=== PATIENT | male | born 1965 | race Caucasian/White ===

== ENCOUNTER 2020-02-06 11:32 | Outpatient (REF) | payer BC, SELFPAY | END 2020-02-06 11:33 | disposition home or self-care (01) | LOC: HO.LAB 11:32 | PROVIDERS: Visit Provider Nurse Practitioner Family | DX: Z20.828 Contact with and (suspected) exposure to other viral communicable diseases (principal) | CPT/HCPCS: U0003 ==

== ENCOUNTER 2020-12-28 10:12 | Outpatient (REF) | payer OTHER, SELFPAY ==
[2020-12-28 11:24] LABS: MANUAL DIFF FLAG NO
[2020-12-28 11:32] LABS: Basophils Percent Auto 0.1 % (0-2); Eosinophils Percent Auto 0.4 % (0-4); Hematocrit 44.9 % (42.0-52.0); Hemoglobin 14.9 g/dl (14.0-18.0); Imm Gran Abs Auto 0.03 X10*3/uL (0.00-0.03); Imm Gran Pct Auto 0.4 % (0.0-0.4); Lymphocytes Absolute Auto 1.7 X10*3/uL (1.2-4.9); Lymphocytes Percent Auto 20.2 % (20-40); Mean Corpuscular HGB Conc 33.2 g/dl (31.0-36.0); Mean Corpuscular Hemoglobin 28.8 pg (27.0-33.0); Mean Corpuscular Volume 86.7 fL (80.0-98.0); Mean Platelet Volume 10.4 fL (9.4-12.4); Monocytes Absolute Auto 0.5 X10*3/uL (0.1-1.2); Monocytes Percent Auto 6.5 % (2-11); Neutrophils Percent Auto 72.4 % (45-73); Platelet Count 343 X10*3/uL (160-400); Red Blood Count 5.18 X10*6/uL (4.60-5.80); Red Cell Distribution Width 12.4 % (11.0-16.0); White Blood Count 8.3 X10*3/uL (4.8-10.8)
[2020-12-28 11:52] LABS: Anion Gap 14 (12-20); Blood Urea Nitrogen 18 mg/dL (9-16); Calcium 9.5 mg/dL (8.4-10.2); Carbon Dioxide 24 mmol/L (22-29); Chloride 106 mmol/L (96-108); Cholesterol 163 mg/dL; Estimated Glomerular Filt Rate > 60; Glucose Fasting 125 mg/dL (60-99); HDL Cholesterol 46 mg/dL; LDL Cholesterol Calculated 105 mg/dl; Potassium 4.3 mmol/L (3.3-5.1); Sodium 140 mmol/L (135-145); Triglycerides 63 mg/dL
== END 2020-12-28 10:13 | disposition home or self-care (01) ==
LOC: HO.HMGCLDS 10:12
PROVIDERS: PCP Internal Medicine; Visit Provider Nurse Practitioner Acute Care
DX: Z00.00 Encounter for general adult medical examination without abnormal findings (principal)
CPT/HCPCS: 36415; 80048; 80061; 85025

== ENCOUNTER 2021-03-22 09:05 | Outpatient (REF) | payer OTHER, SELFPAY ==
[2021-03-22 11:17] LABS: Appearance Urine CLEAR; Color Urine YELLOW; Glucose Urine UA NEG (NEG); Leukocyte Esterase Urine NEG (NEG); Nitrite Urine NEG (NEG); PH 7.5 (5.0-8.0); Specific Gravity - Urine 1.015 (1.005-1.025); Urine Blood NEG (NEG); Urine Ketones NEG (NEG); Urine Protein NEG (NEG-TRACE)
[2021-03-22 11:23] LABS: Alanine Aminotransferase 23 U/L (0-40); Albumin Level 4.4 g/dL (3.5-5.0); Alkaline Phosphatase 94 U/L (39-117); Anion Gap 11 (12-20); Aspartate Amino Transferase 22 U/L (5-37); Bilirubin Total 1.1 mg/dL (0.0-1.0); Blood Urea Nitrogen 13 mg/dL (9-16); Calcium 9.5 mg/dL (8.4-10.2); Carbon Dioxide 29 mmol/L (22-29); Chloride 105 mmol/L (96-108); Cholesterol 166 mg/dL; Estimated Glomerular Filt Rate > 60; Glucose Fasting 91 mg/dL (60-99); HDL Cholesterol 43 mg/dL; LDL Cholesterol Calculated 108 mg/dl; Potassium 4.3 mmol/L (3.3-5.1); Sodium 141 mmol/L (135-145); Total Protein 7.1 g/dL (6.5-8.0); Triglycerides 76 mg/dL
[2021-03-22 11:25] LABS: Estimated Average Glucose 117 mg/dL; Hemoglobin A1c % 5.7 %
[2021-03-22 11:46] LABS: Prostate Specific Antigen 1.14 ng/mL (<0.05-4.0); TSH reflex Free T4 1.29 uIU/mL (0.32-4.0); Vitamin D 25-OH Total 22.9 ng/mL (>30)
== END 2021-03-22 09:06 | disposition home or self-care (01) ==
LOC: HO.HMGCLDS 09:05
PROVIDERS: Visit Provider Internal Medicine
DX: Z00.00 Encounter for general adult medical examination without abnormal findings (principal); R73.01 Impaired fasting glucose; N40.0 Benign prostatic hyperplasia without lower urinary tract symptoms; E78.00 Pure hypercholesterolemia, unspecified; E55.9 Vitamin D deficiency, unspecified; Z12.5 Encounter for screening for malignant neoplasm of prostate
CPT/HCPCS: 36415; 80053; 80061; 81003; 82306; 83036; 84153; 84443

== ENCOUNTER → 2021-04-15 07:55 | Outpatient (BNVA) | payer SELFPAY | PROVIDERS: PCP Internal Medicine; Visit Provider Internal Medicine | DX: Z02.79 Encounter for issue of other medical certificate (principal) ==

== ENCOUNTER 2021-06-12 21:07 | Emergency (ER) | payer OTHER, SELFPAY ==
[2021-06-12 23:11] VITALS: BP 156/78; PULSE 67; RESP 16; TEMP 37.1; O2SAT 99; BMI 25.7
--- NOTE | 2021-06-12 23:22 | ED.DENTAL ---
HPI - Dental/Oral General Chief complaint: Dental/Oral Stated complaint: infected root canal Source: patient Mode of arrival: ambulatory Limitations: no limitations History of Present Illness HPI Narrative: 56-year-old male presents with right upper molar pain and swelling. Stated that he has an infected root canal, is on Flagyl and clindamycin. Was referred to the emergency department by his dentist Complaint: tooth pain Location: Tooth # Teeth map: 1. Onset (ago): day(s) (2) Duration: constant Severity: moderate Severity scale (1-10): 7 Relieving factors: nothing Exacerbating factors: chewing, cold, heat and drinking fluids Context: history of dental caries Associated symptoms: gum swelling Treatment prior to arrival: topical analgesic Related Data Previous Rx's Medication Instructions Recorded lisinopril 2.5 mg tablet 2.5 mg PO DAILY #90 tab 06/02/21 omeprazole 40 mg capsule,delayed 40 mg PO DAILY #90 cap 06/02/21 release rosuvastatin 10 mg tablet 10 mg PO DAILY #90 tab 06/02/21 amoxicillin 875 mg-potassium 1 tab PO Q12H 10 Days #20 tab 06/13/21 clavulanate 125 mg tablet Allergies Allergy/AdvReac Type Severity Reaction Status Date / Time Penicillins [PCN] Allergy Mild RASH Verified 03/25/21 16:25 penicillin V Allergy Unknown rash Verified 03/25/21 16:25 Review of Systems Review of Systems: Constitutional: No Fever, No Chills ENT/Mouth: No swallowing difficulty, no change in voice, positive dental pain, positive jaw pain, positive facial swelling Eyes: No Eye Pain, No Swelling Cardiovascular: No Chest Pain, No SOB Respiratory: No Cough, No Sputum, No Wheezing, No Smoke Exposure, No Dyspnea Gastrointestinal: No Nausea, No Vomiting, No Diarrhea Genitourinary: No Dysuria Musculoskeletal: No Myalgias Skin: No rash Neuro: No Weakness, No Numbness, No Headache Yes all other systems are reviewed and are negative PMFSH Past Medical History Attestation statement: The following information was validated with the patient. 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 Father No problems noted. Social History Social History Housing: House Alcohol intake: current Alcohol intake frequency: holidays/special occasions only Patient Tobacco Use Status: Never used Tobacco Second Hand Smoke Exposure: Yes Advance Directives: No service: No Current occupational status: employed Physical Exam Vital Signs: Vital Signs: Last Vital Signs Temp 98.7 F 06/12/21 23:11 Pulse 67 06/12/21 23:11 Resp 16 06/12/21 23:11 BP 156/78 H 06/12/21 23:11 Pulse Ox 99 06/12/21 23:11 BMI result Body Mass Index 25.7 Appearance: Alert. Oriented X3. No acute distress. Eyes: Pupils equal, round and reactive to light. ENT: Pharynx normal. Right upper jaw swelling and tenderness. Gingivitis around tooth 2 and 3 Neck: Normal inspection. Neck supple. CVS: Normal heart rate and rhythm. Pulses normal. Respiratory: No respiratory distress. Breath sounds normal. Abdomen: Soft and nontender. Skin: Skin warm and dry. Normal skin color. Normal skin turgor. Extremities: No lower extremity edema. Gait well balanced well coordinated. Neuro: No motor deficit. No sensory deficit. Cranial nerves 2-12 intact Course Course Course Narrative: 56-year-old male presents for tooth pain with suspected root canal and affection. Was seen by his dentist and given Flagyl and clindamycin. States that the swelling and pain got better and then over the past 2 days and can increase. Does report some intermittent episodes of mucousy diarrhea. I advised to stop the clindamycin, will get stool sample for C difficile. Patient states that he does not have a penicillin allergy. I will change his medications to amoxicillin I will give Toradol for pain management 01:00 C diff study requires time to grow. We will call him with his result. Patient understands any must follow-up with his dentist verbalized understanding of and agrees to plan of care to discharge home. Verbalized understanding of signs and symptoms indicating need for emergent intervention MDM - Dental/Oral Differential Diagnosis Differential diagnosis: Likely gingival abscess, dental caries, toothache and dental abscess Medical Records Attestation: I reviewed the patient's medical records. Discharge Plan Discharge Clinical Impression: Toothache Patient Disposition: Home, Self-Care Instructions: Toothache (ED) Additional Instructions: You were evaluated for dental pain and swelling. Please stop taking the clindamycin because you have diarrhea. Your C difficile test is pending. Please take Augmentin 875 mg twice a day for the next 10 days. You must follow up with the dentist this week Take ibuprofen 600 mg every 6 hours as needed for pain management Thank you for choosing this emergency department for evaluation. Please follow-up with primary care physician as needed. Return to the emergency department for any new, concerning, or worsening symptoms. Prescriptions: New amoxicillin-pot clavulanate 875-125 mg tablet 1 tab PO Q12H 10 Days Qty: 20 0RF No Action lisinopril 2.5 mg tablet 2.5 mg PO DAILY Qty: 90 3RF rosuvastatin 10 mg tablet 10 mg PO DAILY Qty: 90 3RF omeprazole 40 mg capsule,delayed release(DR/EC) 40 mg PO DAILY Qty: 90 3RF Stand Alone Forms: [facility] Emergency Numbers
[2021-06-13] MEDS: Ketorolac Tromethamine 60 MG/2 ML VIAL IM (00:11)
[2021-06-13] MEDS: Amoxicillin/Potassium Clav 875 MG TABLET PO (00:11)
[2021-06-13 01:29] LABS: CDiff Gene PCR NEGATIVE (Negative)
== END 2021-06-13 01:23 | disposition home or self-care (01) ==
PROVIDERS: Nurse Practitioner Family; Emergency Provider Internal Medicine
DX: K08.89 Other specified disorders of teeth and supporting structures (principal); I10 Essential (primary) hypertension
CPT/HCPCS: 36415; 87493; 96372; 99284; J1885

== ENCOUNTER 2022-02-22 15:50 | Observation (INO) | payer BC, SELFPAY ==
--- NOTE | 2022-02-22 | ECG_ITS ---
Test Reason : CHEST PAIN Blood Pressure : / mmHG Vent. Rate : 056 BPM Atrial Rate : 056 BPM P-R Int : 150 ms QRS Dur : 086 ms QT Int : 406 ms P-R-T Axes : 022 037 035 degrees QTc Int : 391 ms Sinus bradycardia Otherwise normal ECG No previous ECGs available Referred By: Generic ED Physician Electronically Signed By:Benton Burns
--- NOTE | ~2022-02-22 | XR_ITS ---
EXAMINATION: XR CHEST CLINICAL INFORMATION: Chest pain COMPARISON: None TECHNIQUE: Frontal view of the chest was obtained. FINDINGS: Normal appearance of the cardiomediastinal structures. No effusions or pneumothoraces. No focal pulmonary consolidation. Normal pattern of pulmonary vasculature. XR/XR chest 1V IMPRESSION: No acute cardiopulmonary abnormalities.
[2022-02-22 16:15] VITALS: BP 134/78; BP 160/100; PULSE 56; PULSE 60; RESP 18; TEMP 37.1; O2SAT 95; O2SAT 98; BMI 25.7
[2022-02-22 16:27] LABS: MANUAL DIFF FLAG NO
[2022-02-22 16:28] LABS: Basophils Percent Auto 0.2 % (0-2); Eosinophils Absolute Auto 0.1 X10*3/uL (0.0-0.4); Eosinophils Percent Auto 1.1 % (0-4); Hematocrit 40.8 % (42.0-52.0); Hemoglobin 13.6 g/dl (14.0-18.0); Imm Gran Abs Auto 0.03 X10*3/uL (0.00-0.03); Imm Gran Pct Auto 0.2 % (0.0-0.4); Lymphocytes Absolute Auto 2.2 X10*3/uL (1.2-4.9); Lymphocytes Percent Auto 18.3 % (20-40); Mean Corpuscular HGB Conc 33.3 g/dl (31.0-36.0); Mean Corpuscular Hemoglobin 29.3 pg (27.0-33.0); Mean Corpuscular Volume 87.9 fL (80.0-98.0); Mean Platelet Volume 9.9 fL (9.4-12.4); Monocytes Absolute Auto 0.9 X10*3/uL (0.1-1.2); Monocytes Percent Auto 7.5 % (2-11); Neutrophils Absolute Auto 8.9 x10*3/uL (2.0-8.3); Neutrophils Percent Auto 72.7 % (45-73); Platelet Count 273 X10*3/uL (160-400); Red Blood Count 4.64 X10*6/uL (4.60-5.80); Red Cell Distribution Width 12.1 % (11.0-16.0); White Blood Count 12.2 X10*3/uL (4.8-10.8)
--- NOTE | 2022-02-22 16:30 | ED_ITS ---
HPI - Chest Pain General Chief Complaint: Chest Pain Stated Complaint: chest pressure Time Seen by Provider: 02/22/22 16:30 Source: patient Mode of arrival: EMS Limitations: no limitations History of Present Illness HPI narrative: Patient has hypertension, hyperlipidemia no known coronary artery disease while at rest at 13:30 notice left-sided chest pressure like feeling radiating to the left shoulder initially was mild felt like a gas within an hour or so it became severe when he called the EMS EMS gave aspirin and nitroglycerin and patient felt slightly better but still having the heaviness and pressure feeling on arrival patient did have cold sweats and nausea at the time of the pain. Initial EKG by EMS showed slight J-point elevation in lead 3 aVL and AVF. Patient never had any coronary artery disease never had any stress tests or echo in the past patient does not smoke no family history of coronary artery disease patient took Prilosec at home prior to arrival Related Data Previous Rx's Medication Instructions Recorded lisinopril 2.5 mg tablet 2.5 mg PO DAILY #90 tabs 10/17/21 rosuvastatin 10 mg tablet 10 mg PO DAILY #90 tabs 10/17/21 omeprazole 40 mg capsule,delayed 40 mg PO DAILY #90 caps 01/24/22 release Allergies Allergy/AdvReac Type Severity Reaction Status Date / Time Penicillins [PCN] Allergy Mild RASH Verified 02/22/22 16:17 penicillin V Allergy Unknown rash Verified 02/22/22 16:17 Review of Systems Review of Systems: Yes all other systems are reviewed and are negative [facility] Past Medical History Medical History Anxiety 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 Father No problems noted. Social History Social History Housing: House Alcohol intake: current Alcohol intake frequency: holidays/special occasions only Patient Tobacco Use Status: Never used Tobacco e-Cigarette/Vaping Use: Never Used Second Hand Smoke Exposure: Yes Advance Directives: No Advance Directives Information Provided: Yes service: No Current occupational status: employed Current occupational exposures/hazards: No Cognitive needs: No Hearing needs: No Vision needs: Yes Physical Exam Vital Signs: Vital Signs: Last Vital Signs Temp 98.8 F 02/22/22 21:28 Pulse 92 02/22/22 21:28 Resp 20 02/22/22 21:28 BP 126/77 02/22/22 21:28 Pulse Ox 96 02/22/22 21:28 O2 Del Method 02/22/22 21:28 BMI result Body Mass Index 25.7 Appearance: Alert. Oriented X3. No acute distress. Eyes: PERRLA, No Nystagmus ENT: Pharynx normal. Oral Mucosa moist Neck: Normal inspection. Neck supple. CVS: Normal heart rate and rhythm. Pulses normal. Respiratory: No respiratory distress. Equal air entry bilateral, no wheezing/rales/rhonchi Abdomen: Soft and nontender. Bowel sounds are present, no mass palpable, no CVA tenderness Skin: Skin warm and dry. Normal skin color. Normal skin turgor. Extremities: No lower extremity edema. No calf tenderness Neuro: Oriented X 3. No motor deficit. No sensory deficit.No cerebellar signs , cranial nerves II-XII intact Medications Administered Generic Name Dose Route Start Last Admin Trade Name Freq PRN Reason Stop Dose Admin Enoxaparin Sodium 40 mg 02/22/22 22:00 02/22/22 22:02 Enoxaparin Sodium 40 Mg/0.4 Ml Syringe SUBCUT 40 mg Q24H DEEPTI Administration Discontinued Medications Generic Name Dose Route Start Last Admin Trade Name Freq PRN Reason Stop Dose Admin Heparin Sodium (Porcine) 5,000 unit 02/22/22 17:01 02/22/22 17:15 Heparin Sodium,Porcine 5,000 Unit/Ml Vial IVPUSH 02/22/22 17:02 5,000 unit ONCE ONE Administration Ketorolac Tromethamine 30 mg 02/22/22 19:50 02/22/22 19:57 Ketorolac Tromethamine 30 Mg/Ml Vial IVPUSH 02/22/22 19:51 30 mg ONCE ONE Administration Lorazepam 0.5 mg 02/22/22 17:04 02/22/22 17:14 Lorazepam 0.5 Mg Tablet PO 02/22/22 17:05 0.5 mg ONCE ONE Administration Nitroglycerin 0.5 inch 02/22/22 17:01 02/22/22 17:16 Nitroglycerin 2 % Oint 1 Gm Packet TRANSDERMA 02/22/22 17:02 0.5 inch ONCE ONE Administration Medical Decision Making Medical Decision Making [facility] Narrative: Patient has hypertension, hyperlipidemia, anxiety, GERD came with chest pain started at 13:30 patient had 2 sets of high sensitive troponin-2 EKG is normal without any ischemic changes patient was feeling anxious on arrival was given Ativan, is feeling better now chest pain continued for few hours. At this time patient denies any chest pain , case discussed with Dr. Mcdaniels advised for admission plan for 2D echo and a stress test in the a.m. Differential Diagnosis Differential Diagnoses: The differential diagnosis associated with the presentation includes ACS/STEMI/pericarditis/PE/GERD Lab Data [facility] Lab Attestation statement: I reviewed the patient's lab results. 02/22/22 16:23 02/22/22 16:23 Labs: Lab Results 02/22/22 02/22/22 02/22/22 Range/Units 16:23 16:23 16:23 WBC 12.2 H (4.8-10.8) X10*3/uL RBC 4.64 (4.60-5.80) X10*6/uL Hgb 13.6 L (14.0-18.0) g/dl Hct 40.8 L (42.0-52.0) % MCV 87.9 (80.0-98.0) fL MCH 29.3 (27.0-33.0) pg MCHC 33.3 (31.0-36.0) g/dl RDW 12.1 (11.0-16.0) % Plt Count 273 (160-400) X10*3/uL MPV 9.9 (9.4-12.4) fL Immature Gran % (Auto) 0.2 (0.0-0.4) % Neut % (Auto) 72.7 (45-73) % Lymph % (Auto) 18.3 L (20-40) % [place] % (Auto) 7.5 (2-11) % Eos % (Auto) 1.1 (0-4) % Baso % (Auto) 0.2 (0-2) % Lymph # (Auto) 2.2 (1.2-4.9) X10*3/uL [place] # (Auto) 0.9 (0.1-1.2) X10*3/uL Eos # (Auto) 0.1 (0.0-0.4) X10*3/uL Baso # (Auto) 0.0 (0.0-0.2) X10*3/uL Abs Immat Gran (auto) 0.03 (0.00-0.03) X10*3/uL Absolute Neuts (auto) 8.9 H (2.0-8.3) x10*3/uL Absolute Nucleated RBC 0.000 (0.0-0.012) X10*3/uL Nucleated RBC % (auto) 0.0 (0.0-0.2) /100WBC Sodium 141 (135-145) mmol/L Potassium 4.2 (3.3-5.1) mmol/L Chloride 106 (96-108) mmol/L Carbon Dioxide 27 (22-29) mmol/L Anion Gap 12 (12-20) BUN 19 H (9-16) mg/dL Creatinine 0.87 (0.5-1.4) mg/dL Estim Creat Clear Calc 78.4 Estimated GFR > 60 Random Glucose 98 (60-115) mg/dL Calcium 9.7 (8.4-10.2) mg/dL Total Bilirubin 0.7 (0.0-1.0) mg/dL AST 22 (5-37) U/L ALT 19 (0-40) U/L Alkaline Phosphatase 82 (39-117) U/L Troponin I High Sens < 3.5 (<3.5-35.0) ng/L C-Reactive Protein 0.15 (< or = 0.50) mg/dL Total Protein 7.1 (6.5-8.0) g/dL Albumin 4.6 (3.5-5.0) g/dL Influenza Type A (PCR) (Negative) Influenza Type B (PCR) (Negative) RSV RNA Qual (PCR) (Negative) SARS-CoV-2 RNA (RT-PCR) (Negative) 02/22/22 02/22/22 Range/Units 18:30 18:45 WBC (4.8-10.8) X10*3/uL RBC (4.60-5.80) X10*6/uL Hgb (14.0-18.0) g/dl Hct (42.0-52.0) % MCV (80.0-98.0) fL MCH (27.0-33.0) pg MCHC (31.0-36.0) g/dl RDW (11.0-16.0) % Plt Count (160-400) X10*3/uL MPV (9.4-12.4) fL Immature Gran % (Auto) (0.0-0.4) % Neut % (Auto) (45-73) % Lymph % (Auto) (20-40) % [place] % (Auto) (2-11) % Eos % (Auto) (0-4) % Baso % (Auto) (0-2) % Lymph # (Auto) (1.2-4.9) X10*3/uL [place] # (Auto) (0.1-1.2) X10*3/uL Eos # (Auto) (0.0-0.4) X10*3/uL Baso # (Auto) (0.0-0.2) X10*3/uL Abs Immat Gran (auto) (0.00-0.03) X10*3/uL Absolute Neuts (auto) (2.0-8.3) x10*3/uL Absolute Nucleated RBC (0.0-0.012) X10*3/uL Nucleated RBC % (auto) (0.0-0.2) /100WBC Sodium (135-145) mmol/L Potassium (3.3-5.1) mmol/L Chloride (96-108) mmol/L Carbon Dioxide (22-29) mmol/L Anion Gap (12-20) BUN (9-16) mg/dL Creatinine (0.5-1.4) mg/dL Estim Creat Clear Calc Estimated GFR Random Glucose (60-115) mg/dL Calcium (8.4-10.2) mg/dL Total Bilirubin (0.0-1.0) mg/dL AST (5-37) U/L ALT (0-40) U/L Alkaline Phosphatase (39-117) U/L Troponin I High Sens < 3.5 (<3.5-35.0) ng/L C-Reactive Protein (< or = 0.50) mg/dL Total Protein (6.5-8.0) g/dL Albumin (3.5-5.0) g/dL Influenza Type A (PCR) NEGATIVE (Negative) Influenza Type B (PCR) NEGATIVE (Negative) RSV RNA Qual (PCR) NEGATIVE (Negative) SARS-CoV-2 RNA (RT-PCR) NEGATIVE (Negative) Independent Interpretation I performed an independent interpretation of an: EKG Interpretation: Sinus bradycardia with heart rate 56 beats per minute J-point elevation 1 ,II and lead AVF. Normal axis normal intervals Discharge Plan Discharge Clinical Impression: ACS (acute coronary syndrome) Patient Disposition: Admitted As Inpatient
[2022-02-22 16:48] LABS: Alanine Aminotransferase 19 U/L (0-40); Albumin Level 4.6 g/dL (3.5-5.0); Alkaline Phosphatase 82 U/L (39-117); Anion Gap 12 (12-20); Aspartate Amino Transferase 22 U/L (5-37); Bilirubin Total 0.7 mg/dL (0.0-1.0); Blood Urea Nitrogen 19 mg/dL (9-16); Calcium 9.7 mg/dL (8.4-10.2); Carbon Dioxide 27 mmol/L (22-29); Chloride 106 mmol/L (96-108); Creatinine Clr Calc Pharmacy 78.4; Estimated Glomerular Filt Rate > 60; Glucose Random 98 mg/dL (60-115); Potassium 4.2 mmol/L (3.3-5.1); Sodium 141 mmol/L (135-145); Total Protein 7.1 g/dL (6.5-8.0)
[2022-02-22 17:03] LABS: Troponin-I High Sensitivity < 3.5 ng/L (<3.5-35.0)
[2022-02-22] MEDS: LORazepam 0.5 MG TABLET PO (17:14)
[2022-02-22] MEDS: Heparin Sodium,Porcine 5,000 UNIT/ML VIAL 5000 UNIT IVPUSH (17:15)
[2022-02-22] MEDS: Nitroglycerin 2 % Oint 1 GM Packet 0.5 INCH TRANSDERMA (17:16)
[2022-02-22 18:43] VITALS: BP 137/92; PULSE 78; RESP 20; O2SAT 98
[2022-02-22 19:08] LABS: Troponin-I High Sensitivity < 3.5 ng/L (<3.5-35.0)
--- NOTE | 2022-02-22 19:08 | ECG_ITS ---
Test Reason : REPEAT Blood Pressure : / mmHG Vent. Rate : 087 BPM Atrial Rate : 087 BPM P-R Int : 164 ms QRS Dur : 076 ms QT Int : 344 ms P-R-T Axes : 037 032 029 degrees QTc Int : 413 ms Normal sinus rhythm ST elevation lateral leads with CT depression ?early pericarditis When compared with ECG of 22-FEB-2022 16:26, Vent. rate has increased BY 31 BPM Referred By: Uri Stoner Electronically Signed By:Benton Burns
--- NOTE | 2022-02-22 19:12 | PC.NURSE ---
Assumed care of patient.
[2022-02-22 19:29] LABS: Influenza A PCR NEGATIVE (Negative); Influenza B PCR NEGATIVE (Negative); Resp Syncy Virus RNA Qual PCR NEGATIVE (Negative); SARS COV2 PCR INHOUSE NEGATIVE (Negative)
[2022-02-22] MEDS: Ketorolac Tromethamine 30 MG/ML VIAL IVPUSH (19:57)
--- NOTE | 2022-02-22 20:36 | PC.NURSE ---
pt ambulated safely/independently w/o assistance to restroom
[2022-02-22 20:38] VITALS: O2SAT 98
--- NOTE | 2022-02-22 20:41 | P.HPHOSP_ITS ---
History of Present Illness Date of Service: 02/22/22 Chief Complaint: Chest Pain This is a 56-year-old male with pertinent history of essential hypertension, mixed hyperlipidemia, gastroesophageal reflux disease presents to the emergency department for evaluation of chest pain. Patient states while he was cleaning his house around 13:30 he had sudden onset of substernal chest discomfort. It was constant and radiated to the left shoulder. It was associated with sweating and dyspnea. Patient initially thought it was gas pain but it did not relieve and intensified over time. Patient called EMS around 15:00 due to persistent chest pressure. States he was the worst pain he ever experienced. 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 No early family history of [place] . Patient states the chest discomfort mildly relieved with sublingual nitroglycerin. Did not relieve with rest . Patient denies fever, chills, cough, nausea, vomiting, abdominal pain, changes in urinary or bowel habits. In the emergency department, process development manager was consulted who requested admission Review of Systems Constitutional: Constitutional: Reports no additional constitutional compla ints Cardiovascular: Cardiovascular: Reports chest pain Respiratory: Respiratory: Reports no additional respiratory complaints Gastrointestinal: Gastrointestinal: Reports no additional gastrointestinal complaints Genitourinary: Genitourinary: Reports no additional male genitourinary complaints Musculoskeletal: Musculoskeletal: Reports no additional musculoskeletal complaints [facility] Medical History Anxiety 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 Father No problems noted. Surgical History No pertinent past surgical history Social History Housing: House Alcohol intake: current Alcohol intake frequency: holidays/special occasions only Patient Tobacco Use Status: Never used Tobacco e-Cigarette/Vaping Use: Never Used Second Hand Smoke Exposure: Yes Advance Directives: No Advance Directives Information Provided: Yes service: No Current occupational status: employed Current occupational exposures/hazards: No Cognitive needs: No Hearing needs: No Vision needs: Yes Meds Allergies Allergy/AdvReac Type Severity Reaction Status Date / Time Penicillins [PCN] Allergy Mild RASH Verified 02/22/22 16:17 penicillin V Allergy Unknown rash Verified 02/22/22 16:17 Active Medications: Current Medications Acetaminophen (Acetaminophen 325 Mg Tablet) 650 mg PO Q6H PRN PRN Reason: Pain, Mild (Pain Scale 1-3) Enoxaparin Sodium (Enoxaparin Sodium 40 Mg/0.4 Ml Syringe) 40 mg SUBCUT Q24H DEEPTI Nitroglycerin (Nitroglycerin 0.4 Mg Tab.Subl) 0.4 mg SUBLINGUAL Q5MX3 PRN PRN Reason: Chest Pain Pharmacy Consult (Consult Rx Perform Med Rec) 1 each MISCELLANE ONCE PRN PRN Reason: Consult order Sodium Chloride (0.9 % Sodium Chloride Flush 3 Ml Syringe) 3 ml IVFLUSH QSHIFT DEEPTI Physical Exam Vital Signs and Narrative: Vital Signs: Last Vital Signs Temp 98.8 F 02/22/22 16:15 Pulse 78 02/22/22 18:43 Resp 20 02/22/22 18:43 BP 137/92 H 02/22/22 18:43 Pulse Ox 98 02/22/22 18:43 O2 Del Method 02/22/22 18:43 BMI result Body Mass Index 25.7 Middle-aged male lying in bed in no distress Neck supple, no JVD Regular rate and rhythm, S1-S2 heard Regular breath sounds bilaterally, no wheezing or crackles appreciated Abdomen soft nontender, no guarding, no rigidity Patient is awake, alert and oriented to self, place, time and person ; no focal motor deficit Psych: Normal mood No pedal edema Results Labs 02/22/22 16:23 02/22/22 16:23 Labs: Laboratory Results - last 24 hr 02/22/22 02/22/22 02/22/22 16:23 16:23 16:23 MCV 87.9 MCH 29.3 MCHC 33.3 RDW 12.1 Plt Count 273 MPV 9.9 Immature Gran % (Auto) 0.2 Neut % (Auto) 72.7 Lymph % (Auto) 18.3 L [place] % (Auto) 7.5 Eos % (Auto) 1.1 Baso % (Auto) 0.2 Lymph # (Auto) 2.2 [place] # (Auto) 0.9 Eos # (Auto) 0.1 Baso # (Auto) 0.0 Abs Immat Gran (auto) 0.03 Absolute Neuts (auto) 8.9 H Absolute Nucleated RBC 0.000 Nucleated RBC % (auto) 0.0 Anion Gap 12 Estim Creat Clear Calc 78.4 Estimated GFR > 60 Random Glucose 98 Calcium 9.7 Total Bilirubin 0.7 AST 22 ALT 19 Alkaline Phosphatase 82 Troponin I High Sens < 3.5 Total Protein 7.1 Albumin 4.6 Influenza Type A (PCR) Influenza Type B (PCR) RSV RNA Qual (PCR) SARS-CoV-2 RNA (RT-PCR) 02/22/22 02/22/22 18:30 18:45 MCV MCH MCHC RDW Plt Count MPV Immature Gran % (Auto) Neut % (Auto) Lymph % (Auto) [place] % (Auto) Eos % (Auto) Baso % (Auto) Lymph # (Auto) [place] # (Auto) Eos # (Auto) Baso # (Auto) Abs Immat Gran (auto) Absolute Neuts (auto) Absolute Nucleated RBC Nucleated RBC % (auto) Anion Gap Estim Creat Clear Calc Estimated GFR Random Glucose Calcium Total Bilirubin AST ALT Alkaline Phosphatase Troponin I High Sens < 3.5 Total Protein Albumin Influenza Type A (PCR) NEGATIVE Influenza Type B (PCR) NEGATIVE RSV RNA Qual (PCR) NEGATIVE SARS-CoV-2 RNA (RT-PCR) NEGATIVE Imaging Radiologist's Impressions: Impressions Chest X-Ray 02/22/22 16:48 IMPRESSION: No acute cardiopulmonary abnormalities. Assessment and Plan (1) Chest pain: Status: Acute Plan This is a 56-year-old male with pertinent history of essential hypertension, mixed hyperlipidemia, gastroesophageal reflux disease presents to the emergency department for evaluation of chest pain. #. Atypical chest pain: Will admit with retirement consultant. Cardiology consulted from the ER, appreciate assistance. Obtain echo. Repeat troponin. #. Essential HTN: On lisinopril #. HLD: on statin #. GERD: omeprazole DVT Prophylaxis: Lovenox 40mg daily Full code Diet: Cardiac diet Time Spent With Patient Time: Total time managing care of this patient today ____ minutes. Quality Stroke Does the patient have a stroke diagnosis?: No VTE Prior VTE?: No VTE Risk Level:: Medical - low VTE Device Contraindication: Treatment Not Indicated VTE Drug Contraindication: N/A - Med Ordered
[2022-02-22 21:28] VITALS: BP 126/77; PULSE 92; RESP 20; TEMP 37.1; O2SAT 96
[2022-02-22] MEDS: Enoxaparin Sodium 40 MG/0.4 ML SYRINGE SUBCUT (22:02)
[2022-02-22 22:18] LABS: C Reactive Protein 0.15 mg/dL (< or = 0.50)
--- NOTE | 2022-02-22 22:43 | PC.NURSE ---
pt requests refreshments and sherbert- given; no apparent distress, resting quietly while watching tv
--- NOTE | 2022-02-22 22:44 | PC.NURSE ---
pt denies pain
[2022-02-22 22:52] LABS: Erythrocyte Sedimentation Rate 5 MM/HR (0-15)
[2022-02-22 23:29] LABS: INTERNATIONAL NORM RATIO 1.1 (0.9-1.1); Prothrombin Time 12.6 SEC (10.0-13.1)
[2022-02-22 23:31] LABS: D Dimer High Sensitivity 283 NG/ML
[2022-02-22 23:32] LABS: Partial Thromboplastin Time 33.8 SEC (26.0-36.4)
--- NOTE | 2022-02-23 | ECG_ITS ---
Test Reason : follow up unstable angina Blood Pressure : / mmHG Vent. Rate : 079 BPM Atrial Rate : 079 BPM P-R Int : 134 ms QRS Dur : 074 ms QT Int : 352 ms P-R-T Axes : 004 043 037 degrees QTc Int : 403 ms Normal sinus rhythm Diffuse ST elevations - pericarditis Abnormal ECG When compared with ECG of 22-FEB-2022 19:16, Changes of pericarditis present. Referred By: Jhony Pineda Electronically Signed By:Benton Burns
--- NOTE | 2022-02-23 01:53 | PC.NURSE ---
pt sleeping; no apparent distress; vs assessed; will continue to monitor
--- NOTE | 2022-02-23 03:07 | PC.NURSE ---
med rec completed; Dr Bishop notified via [employer]
--- NOTE | 2022-02-23 03:08 | PC.NURSE ---
Went over home meds with patient for med rec.
[2022-02-23 03:17] VITALS: BP 120/65; PULSE 84; RESP 17; TEMP 37.1; O2SAT 95
[2022-02-23 05:43] LABS: Troponin-I High Sensitivity 9.4 ng/L (<3.5-35.0)
[2022-02-23 05:47] VITALS: BP 134/90; PULSE 87; RESP 14
[2022-02-23 05:48] LABS: MANUAL DIFF FLAG NO
--- NOTE | 2022-02-23 05:48 | PC.NURSE ---
vs assessed; pt ambulated to the restroom independently/safely w/o assistance
[2022-02-23 05:52] LABS: Basophils Percent Auto 0.4 % (0-2); Eosinophils Percent Auto 0.1 % (0-4); Hematocrit 39.7 % (42.0-52.0); Hemoglobin 13.6 g/dl (14.0-18.0); Imm Gran Abs Auto 0.04 X10*3/uL (0.00-0.03); Imm Gran Pct Auto 0.4 % (0.0-0.4); Lymphocytes Percent Auto 17.8 % (20-40); Mean Corpuscular HGB Conc 34.3 g/dl (31.0-36.0); Mean Corpuscular Hemoglobin 29.2 pg (27.0-33.0); Mean Corpuscular Volume 85.4 fL (80.0-98.0); Mean Platelet Volume 9.9 fL (9.4-12.4); Monocytes Absolute Auto 1.3 X10*3/uL (0.1-1.2); Monocytes Percent Auto 11.9 % (2-11); Neutrophils Absolute Auto 7.7 x10*3/uL (2.0-8.3); Neutrophils Percent Auto 69.4 % (45-73); Platelet Count 243 X10*3/uL (160-400); Red Blood Count 4.65 X10*6/uL (4.60-5.80); Red Cell Distribution Width 12.1 % (11.0-16.0); White Blood Count 11.1 X10*3/uL (4.8-10.8)
[2022-02-23 06:04] LABS: Anion Gap 11 (12-20); Blood Urea Nitrogen 15 mg/dL (9-16); Calcium 9.4 mg/dL (8.4-10.2); Carbon Dioxide 26 mmol/L (22-29); Chloride 103 mmol/L (96-108); Creatinine Clr Calc Pharmacy 72.6; Estimated Glomerular Filt Rate > 60; Glucose Random 112 mg/dL (60-115); Sodium 136 mmol/L (135-145)
[2022-02-23 06:09] LABS: Troponin-I High Sensitivity 13.9 ng/L (<3.5-35.0)
--- NOTE | 2022-02-23 07:00 | CA_ITS ---
Transthoracic Echocardiogram Patient (Last, First, Middle): Darin Davidson C Gender: Male Date of : 1965 Age: 56 Procedure Date: 02/23/2022 Procedure Type: Transthoracic Echocardiogram Location: ER Height: 162.56 cm Weight: 68.04 kg BSA: 1.73 m2 Heart Rate: bpm BP: 134 / 90 mmHg Seismic Prospecting Supervisor: SB Referring MD: Alice Bishop MD Symptoms: chest pain Study Quality: Adequate Conclusions: - Normal left ventricular size, thickness, and systolic function. The visually estimated ejection fraction is between 55-60%. - The mid inferior and basal inferolateral segments are hypokinetic. - The basal inferior segment is akinetic. - Normal right ventricular cavity size and systolic function. Findings Left Ventricle Normal left ventricular size, thickness, and systolic function. The visually estimated ejection fraction is between 55-60%. There is evidence of regional wall motion abnormalities. Abnormal diastolic function is noted. Spectral Doppler is indicative of an impaired relaxation filling pattern. E/E prime ratio is between 8 and 15 consistent with indeterminate filling pressures. GLS normal @ -18% Wall Motion Rest Echo Findings The mid inferior and basal inferolateral segments are hypokinetic. The basal inferior segment is akinetic. Right Ventricle Normal right ventricular cavity size and systolic function. Atria The left atrium is normal in size. The right atrium is normal in size. Aortic Valve There is a normal trileaflet aortic valve. There is no aortic valve stenosis. There is no aortic valve regurgitation. Mitral Valve The mitral valve appears normal. There is no mitral valve regurgitation. There is no mitral valve stenosis. Pulmonic Valve Normal pulmonic valve structure and function. There is trace pulmonic valve regurgitation. Tricuspid Valve Normal tricuspid valve structure. There is trace tricuspid valve regurgitation. Tricuspid regurgitation envelope is inadequate for calculation of right ventricular systolic pressure. Indeterminate right atrial pressure. Great Vessels All visible segments of the aorta are normal in size. The visualized portions of the pulmonary artery and branches are normal. Venous The inferior vena cava is normal in size and collapses greater than 50% with inspiration. Pericardium/Pleural There is no evidence of pericardial effusion. Prior Study Comparison No prior study available for comparison. Measurements 2D Linear Measurements IVSd: 0.80 0.6-0.9/0.6-1.0 cm LVIDd: 4.89 3.9-5.3/4.2-5.9 cm LVIDd Index: 2.83 2.4-3.2/2.2-3.1 cm/m2 LVIDs: 3.24 2.0-3.6 cm LVPWd: 0.58 0.7-1.1 cm LA Diam: 3.10 2.7-3.8/3.0-4.0 cm LAIDs Index: 1.79 1.5-2.3 cm/m2 LV Mass: 134.99 67-162/88-224 g LV Mass Index: 78.03 43-95/49-115 g/m2 LVOT Diam: 2.20 3.0+(-)1.3 cm 2D Systolic Function EF 4C: 57.20 >55% Mitral Valve MV Pk E: 0.82 MV PK A: 0.78 MV Decel Time: 228.00 E/A: 1.10 E'Lateral: 8.38 E'Medial: 6.85 E/E' Med: 12.00 E/E' Lat: 9.80 PHT: 67.00 MVA PHT: 3.28 Decel Cochran: 3.61 Aortic Valve AoV Pk Rachid: 1.37 AoV Pk Grad: 8.00 LEXUS: 3.36 LVOT LVOT Pk Rachid: 1.21 LVOT Mn Rachid: 0.76 LVOT VTI: 0.19 LVOT Pk Grad: 6.00 LVOT Mn Grad: 3.00 LVOT Diam: 2.20 LVOT Area: 3.80 Diastolic Function MV Pk E: 0.82 MV Pk A: 0.78 E/A: 1.10 E'Medial: 6.85 E/E' Med: 12.00 E' Laterial: 8.38 E/E' Lat: 9.80 Right Ventricle TAPSE (mm): 24.00 TVS' Rachid: 16.30 Tricuspid Valve RA Press: 3.00 Great Vessels Aorta Sinus of Valsalva: 3.10 2.0-3.5 cm Ao Asc: 3.20 2.1-3.4 cm Pulmonary Veins Pulm Vein S/D 1.40 Pulmonary Valve PV Pk Rachid: 0.91 Peak PV Grad: 3.00 Updated in Other Vendor System with Status of Final Benton Burns MD electronically signed on 02/23/2022 1:30:53 PM with status of Final
--- NOTE | 2022-02-23 07:11 | PHA.MEDREC ---
Pharmacy Consult ? Medication Reconciliation Pharmacy has completed the medication reconciliation. Reviewed med rec done by nursing
[2022-02-23] MEDS: 0.9 % Sodium Chloride Flush 3 ML SYRINGE IVFLUSH (07:46)
[2022-02-23 08:15] VITALS: BP 118/76; PULSE 76; RESP 18; TEMP 37.1; O2SAT 95
[2022-02-23] MEDS: Atorvastatin Calcium 40 MG TABLET PO (08:18)
[2022-02-23] MEDS: lisinopriL 2.5 MG TABLET PO (08:18)
--- NOTE | 2022-02-23 08:28 | PC.NURSE ---
MD messaged regarding pts NPO status, if okay to give PO medications via tiger text to which MD stated okay to give meds. NPO due to possible stress test. also messaged to change omeprazole order to start today instead of tomorrow per pt request.
[2022-02-23] MEDS: Omeprazole 40 MG CAPSULE.DR PO (08:50)
--- NOTE | 2022-02-23 09:40 | P.CONCA_ITS ---
History of Present Illness History of Present Illness Date of Service: 02/23/22 Requesting physician: Alice Bishop Chief complaint: chest pain Narrative: [age] gentleman was seen in the emergency department for chest pain. Yesterday he had 2 hours of chest discomfort which was heavy sensation in the central chest along with shortness of breath and sweating. He is saying that the pain was worse when he was trying to lay flat but not clearly pleuritic in nature. He is endorsing some symptoms of muscle aches and pains which can be due to a recent viral prodrome. His biomarkers are normal. EKG is not showing any dynamic changes currently. He underwent echocardiography which showed basal to mid inferior wall hypokinesis. He has background of hypertension hyperlipidemia. He is a nonsmoker. No strong family history of coronary disease. 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 Father No problems noted. Surgical History Surgical History No pertinent past surgical history Social History Social History Housing: House Alcohol intake: current Alcohol intake frequency: holidays/special occasions only Patient Tobacco Use Status: Never used Tobacco e-Cigarette/Vaping Use: Never Used Second Hand Smoke Exposure: Yes service: No Current occupational status: employed Current occupational exposures/hazards: No Cognitive needs: No Hearing needs: No Vision needs: Yes Meds Allergies Allergy/AdvReac Type Severity Reaction Status Date / Time Penicillins [PCN] Allergy Mild RASH Verified 02/22/22 16:17 penicillin V Allergy Unknown rash Verified 02/22/22 16:17 Active Medications: Current Medications Acetaminophen (Acetaminophen 325 Mg Tablet) 650 mg PO Q6H PRN PRN Reason: Pain, Mild (Pain Scale 1-3) Atorvastatin Calcium (Atorvastatin Calcium 40 Mg Tablet) 40 mg PO DAILY DEEPTI Last Admin: 02/23/22 08:18 Dose: 40 mg Enoxaparin Sodium (Enoxaparin Sodium 40 Mg/0.4 Ml Syringe) 40 mg SUBCUT Q24H [facility] Last Admin: 02/22/22 22:02 Dose: 40 mg Lisinopril (Lisinopril 2.5 Mg Tablet) 2.5 mg PO DAILY [facility]; Protocol Last Admin: 02/23/22 08:18 Dose: 2.5 mg Nitroglycerin (Nitroglycerin 0.4 Mg Tab.Subl) 0.4 mg SUBLINGUAL Q5MX3 PRN PRN Reason: Chest Pain Omeprazole (Omeprazole 40 Mg Capsule.Dr) 40 mg PO DAILY@0630 [facility] Pharmacy Consult (Consult Rx Perform Med Rec) 1 each MISCELLANE ONCE PRN PRN Reason: Consult order Sodium Chloride (0.9 % Sodium Chloride Flush 3 Ml Syringe) 3 ml IVFLUSH QSHIFT [facility] Last Admin: 02/23/22 07:46 Dose: 3 ml Home Medications Medication Instructions Recorded Confirmed Last Taken Type cholecalciferol (vitamin D3) 50 50 mcg PO DAILY 02/23/22 02/23/22 Unknown History mcg (2,000 unit) tablet (Vitamin D3) Physical Exam Vital Signs: Vital Signs: Last Vital Signs Temp 98.8 F 02/23/22 08:15 Pulse 76 02/23/22 08:15 Resp 18 02/23/22 08:15 BP 118/76 02/23/22 08:15 Pulse Ox 95 02/23/22 08:15 O2 Del Method 02/23/22 08:15 BMI result Body Mass Index 25.7 GENERAL APPEARANCE: in no acute distress, pleasant. NECK: no carotid bruit, no jugular venous distention. SKIN: no suspicious lesions, warm and dry. HEART: no murmurs, regular rate and rhythm. LUNGS: clear to auscultation bilaterally. ABDOMEN: soft, nontender. EXTREMITIES: no edema. PERIPHERAL PULSES: equal. NEUROLOGIC: No gross deficits, AAO X 3 Objective Labs and Meds 02/23/22 05:30 02/23/22 05:30 Lab results: Laboratory Results - last 24 hr 02/22/22 02/22/22 02/22/22 16:23 16:23 16:23 WBC 12.2 H RBC 4.64 Hgb 13.6 L Hct 40.8 L MCV 87.9 MCH 29.3 MCHC 33.3 RDW 12.1 Plt Count 273 MPV 9.9 Immature Gran % (Auto) 0.2 Neut % (Auto) 72.7 Lymph % (Auto) 18.3 L Hale % (Auto) 7.5 Eos % (Auto) 1.1 Baso % (Auto) 0.2 Lymph # (Auto) 2.2 Hale # (Auto) 0.9 Eos # (Auto) 0.1 Baso # (Auto) 0.0 Abs Immat Gran (auto) 0.03 Absolute Neuts (auto) 8.9 H Absolute Nucleated RBC 0.000 Nucleated RBC % (auto) 0.0 ESR PT INR APTT D-Dimer High Sensitivty Sodium 141 Potassium 4.2 Chloride 106 Carbon Dioxide 27 Anion Gap 12 BUN 19 H Creatinine 0.87 Estim Creat Clear Calc 78.4 Estimated GFR > 60 Random Glucose 98 Calcium 9.7 Total Bilirubin 0.7 AST 22 ALT 19 Alkaline Phosphatase 82 Troponin I High Sens < 3.5 C-Reactive Protein 0.15 Total Protein 7.1 Albumin 4.6 Influenza Type A (PCR) Influenza Type B (PCR) RSV RNA Qual (PCR) SARS-CoV-2 RNA (RT-PCR) 02/22/22 02/22/22 02/22/22 16:23 18:30 18:45 WBC RBC Hgb Hct MCV MCH MCHC RDW Plt Count MPV Immature Gran % (Auto) Neut % (Auto) Lymph % (Auto) Hale % (Auto) Eos % (Auto) Baso % (Auto) Lymph # (Auto) Hale # (Auto) Eos # (Auto) Baso # (Auto) Abs Immat Gran (auto) Absolute Neuts (auto) Absolute Nucleated RBC Nucleated RBC % (auto) ESR 5 PT INR APTT D-Dimer High Sensitivty Sodium Potassium Chloride Carbon Dioxide Anion Gap BUN Creatinine Estim Creat Clear Calc Estimated GFR Random Glucose Calcium Total Bilirubin AST ALT Alkaline Phosphatase Troponin I High Sens < 3.5 C-Reactive Protein Total Protein Albumin Influenza Type A (PCR) NEGATIVE Influenza Type B (PCR) NEGATIVE RSV RNA Qual (PCR) NEGATIVE SARS-CoV-2 RNA (RT-PCR) NEGATIVE 02/22/22 02/22/22 02/22/22 23:13 23:13 23:13 WBC RBC Hgb Hct MCV MCH MCHC RDW Plt Count MPV Immature Gran % (Auto) Neut % (Auto) Lymph % (Auto) Hale % (Auto) Eos % (Auto) Baso % (Auto) Lymph # (Auto) Hale # (Auto) Eos # (Auto) Baso # (Auto) Abs Immat Gran (auto) Absolute Neuts (auto) Absolute Nucleated RBC Nucleated RBC % (auto) ESR PT 12.6 INR 1.1 APTT 33.8 D-Dimer High Sensitivty 283 Sodium Potassium Chloride Carbon Dioxide Anion Gap BUN Creatinine Estim Creat Clear Calc Estimated GFR Random Glucose Calcium Total Bilirubin AST ALT Alkaline Phosphatase Troponin I High Sens 9.4 D C-Reactive Protein Total Protein Albumin Influenza Type A (PCR) Influenza Type B (PCR) RSV RNA Qual (PCR) SARS-CoV-2 RNA (RT-PCR) 02/23/22 02/23/22 02/23/22 05:30 05:30 05:30 WBC 11.1 H RBC 4.65 Hgb 13.6 L Hct 39.7 L MCV 85.4 MCH 29.2 MCHC 34.3 RDW 12.1 Plt Count 243 MPV 9.9 Immature Gran % (Auto) 0.4 Neut % (Auto) 69.4 Lymph % (Auto) 17.8 L Hale % (Auto) 11.9 H Eos % (Auto) 0.1 Baso % (Auto) 0.4 Lymph # (Auto) 2.0 Hale # (Auto) 1.3 H Eos # (Auto) 0.0 Baso # (Auto) 0.0 Abs Immat Gran (auto) 0.04 H Absolute Neuts (auto) 7.7 Absolute Nucleated RBC 0.000 Nucleated RBC % (auto) 0.0 ESR PT INR APTT D-Dimer High Sensitivty Sodium 136 Potassium 4.0 Chloride 103 Carbon Dioxide 26 Anion Gap 11 L BUN 15 Creatinine 0.94 Estim Creat Clear Calc 72.6 Estimated GFR > 60 Random Glucose 112 Calcium 9.4 Total Bilirubin AST ALT Alkaline Phosphatase Troponin I High Sens 13.9 C-Reactive Protein Total Protein Albumin Influenza Type A (PCR) Influenza Type B (PCR) RSV RNA Qual (PCR) SARS-CoV-2 RNA (RT-PCR) Imaging Radiologist's impression: Impressions Chest X-Ray 02/22/22 16:48 IMPRESSION: No acute cardiopulmonary abnormalities. Assessment and Plan (1) Chest pain: Status: Acute (2) ACS (acute coronary syndrome): Status: Acute Plan Pleasant 56-year-old gentleman presenting for chest discomfort. His echocardiography has shown evidence of basal to mid inferior wall hypokinesis. He has risk factors for coronary artery disease. Currently he is pain free. His biomarkers are normal. EKG does not have any ischemic looking changes currently. He has some features which can point to her pericarditis but given wall motion abnormality and sudden-onset chest discomfort I think he needs diagnostic angiography. We will transfer him to [facility] and do diagnostic angiogram today. Further recommendations will be given after the angiogram is done. In the meantime I will treat him like acute coronary syndrome and give him heparin drip. He should be on baby aspirin after aspirin 324 mg load. Thank you for allowing me to participate in the care of your patient. Please feel free to contact me if you have any questions. Time Spent With Patient Time: Total time managing care of this patient today ____ minutes. Procedures Date of Service Date of Service: 02/23/22
[2022-02-23 09:59] VITALS: BMI 27.1
--- NOTE | 2022-02-23 10:00 | PM.DS ---
DS: Providers Provider Date of Service: 02/23/22 Date of admission: 02/22/22 20:36 Primary care physician: Robbie Dudley MD Consults: 02/22/22 20:36 Consult to Cardiology Routine Consulting Provider: Aron Mcdaniels Reason for consultation: chest pain Has provider been notified: Yes DS: Diagnosis Discharge Diagnosis (1) Chest pain: Status: Acute DS: Summary Hospital Course Hospital Course: from initial hpi: Chief Complaint: Chest Pain This is a 56-year-old male with pertinent history of essential hypertension, mixed hyperlipidemia, gastroesophageal reflux disease presents to the emergency department for evaluation of chest pain.? Patient states while he was cleaning his house around 13:30 he had sudden onset of substernal chest discomfort.? It was constant and radiated to the left shoulder.? It was associated with sweating and dyspnea.? Patient initially thought it was gas pain but it did not relieve and intensified over time.? Patient called EMS around 15:00 due to persistent chest pressure.? States he was the worst pain he ever experienced.? He has known history of coronary artery disease in does not follow cassandra architect.? No early family history of [place] .? Patient states the chest discomfort mildly relieved with sublingual nitroglycerin.? Did not relieve with rest .? Patient denies fever, chills, cough, nausea, vomiting, abdominal pain, changes in urinary or bowel habits. In the emergency department, cassandra architect was consulted who requested admission hospital course: Patient was admitted for Moderate to high risk chest pain. initially plan for echocardiogram and stress test. However, on echocardiogram noted to have inferior wall motion abnormality, started on heparin, aspirin, statin, plan for transfer to [facility] for cardiac catheterization. for hypertension is continue lisinopril. For GERD he was continued on omeprazole. Time Spent with Patient Time attestation: Total time managing care of this patient today ____ minutes. Discharge coordination time: Greater than 30 minutes Quality: Safe Use of Opioids Does Pt have an Active Cancer Diagnosis on the Problem List?: No Quality: Stroke Does the patient have a stroke diagnosis?: No Physical Exam Vital Signs: Vital Signs: Last Vital Signs Temp 98.8 F 02/23/22 08:15 Pulse 76 02/23/22 08:15 Resp 18 02/23/22 08:15 BP 118/76 02/23/22 08:15 Pulse Ox 95 02/23/22 08:15 O2 Del Method 02/23/22 08:15 BMI result Body Mass Index 27.1 General: AO X 3, no acute distress Resp: CTA bilateral, no accessory muscles used CVS: S1,S2,RRR GI: soft, non tender, non distended Neuro: motor grossly intact, alert Psych: appropriate affect, appropriate insight DS: Data Data Completed and Pending Labs on day of discharge: Laboratory Results - last 24 hr 02/22/22 02/22/22 02/22/22 16:23 16:23 16:23 WBC 12.2 H RBC 4.64 Hgb 13.6 L Hct 40.8 L MCV 87.9 MCH 29.3 MCHC 33.3 RDW 12.1 Plt Count 273 MPV 9.9 Immature Gran % (Auto) 0.2 Neut % (Auto) 72.7 Lymph % (Auto) 18.3 L Bath % (Auto) 7.5 Eos % (Auto) 1.1 Baso % (Auto) 0.2 Lymph # (Auto) 2.2 Bath # (Auto) 0.9 Eos # (Auto) 0.1 Baso # (Auto) 0.0 Abs Immat Gran (auto) 0.03 Absolute Neuts (auto) 8.9 H Absolute Nucleated RBC 0.000 Nucleated RBC % (auto) 0.0 ESR PT INR APTT D-Dimer High Sensitivty Sodium 141 Potassium 4.2 Chloride 106 Carbon Dioxide 27 Anion Gap 12 BUN 19 H Creatinine 0.87 Estim Creat Clear Calc 78.4 Estimated GFR > 60 Random Glucose 98 Calcium 9.7 Total Bilirubin 0.7 AST 22 ALT 19 Alkaline Phosphatase 82 Troponin I High Sens < 3.5 C-Reactive Protein 0.15 Total Protein 7.1 Albumin 4.6 Influenza Type A (PCR) Influenza Type B (PCR) RSV RNA Qual (PCR) SARS-CoV-2 RNA (RT-PCR) 02/22/22 02/22/22 02/22/22 16:23 18:30 18:45 WBC RBC Hgb Hct MCV MCH MCHC RDW Plt Count MPV Immature Gran % (Auto) Neut % (Auto) Lymph % (Auto) Bath % (Auto) Eos % (Auto) Baso % (Auto) Lymph # (Auto) Bath # (Auto) Eos # (Auto) Baso # (Auto) Abs Immat Gran (auto) Absolute Neuts (auto) Absolute Nucleated RBC Nucleated RBC % (auto) ESR 5 PT INR APTT D-Dimer High Sensitivty Sodium Potassium Chloride Carbon Dioxide Anion Gap BUN Creatinine Estim Creat Clear Calc Estimated GFR Random Glucose Calcium Total Bilirubin AST ALT Alkaline Phosphatase Troponin I High Sens < 3.5 C-Reactive Protein Total Protein Albumin Influenza Type A (PCR) NEGATIVE Influenza Type B (PCR) NEGATIVE RSV RNA Qual (PCR) NEGATIVE SARS-CoV-2 RNA (RT-PCR) NEGATIVE 02/22/22 02/22/22 02/22/22 23:13 23:13 23:13 WBC RBC Hgb Hct MCV MCH MCHC RDW Plt Count MPV Immature Gran % (Auto) Neut % (Auto) Lymph % (Auto) Bath % (Auto) Eos % (Auto) Baso % (Auto) Lymph # (Auto) Bath # (Auto) Eos # (Auto) Baso # (Auto) Abs Immat Gran (auto) Absolute Neuts (auto) Absolute Nucleated RBC Nucleated RBC % (auto) ESR PT 12.6 INR 1.1 APTT 33.8 D-Dimer High Sensitivty 283 Sodium Potassium Chloride Carbon Dioxide Anion Gap BUN Creatinine Estim Creat Clear Calc Estimated GFR Random Glucose Calcium Total Bilirubin AST ALT Alkaline Phosphatase Troponin I High Sens 9.4 D C-Reactive Protein Total Protein Albumin Influenza Type A (PCR) Influenza Type B (PCR) RSV RNA Qual (PCR) SARS-CoV-2 RNA (RT-PCR) 02/23/22 02/23/22 02/23/22 05:30 05:30 05:30 WBC 11.1 H RBC 4.65 Hgb 13.6 L Hct 39.7 L MCV 85.4 MCH 29.2 MCHC 34.3 RDW 12.1 Plt Count 243 MPV 9.9 Immature Gran % (Auto) 0.4 Neut % (Auto) 69.4 Lymph % (Auto) 17.8 L Bath % (Auto) 11.9 H Eos % (Auto) 0.1 Baso % (Auto) 0.4 Lymph # (Auto) 2.0 Bath # (Auto) 1.3 H Eos # (Auto) 0.0 Baso # (Auto) 0.0 Abs Immat Gran (auto) 0.04 H Absolute Neuts (auto) 7.7 Absolute Nucleated RBC 0.000 Nucleated RBC % (auto) 0.0 ESR PT INR APTT D-Dimer High Sensitivty Sodium 136 Potassium 4.0 Chloride 103 Carbon Dioxide 26 Anion Gap 11 L BUN 15 Creatinine 0.94 Estim Creat Clear Calc 72.6 Estimated GFR > 60 Random Glucose 112 Calcium 9.4 Total Bilirubin AST ALT Alkaline Phosphatase Troponin I High Sens 13.9 C-Reactive Protein Total Protein Albumin Influenza Type A (PCR) Influenza Type B (PCR) RSV RNA Qual (PCR) SARS-CoV-2 RNA (RT-PCR) Discharge Plan Discharge Anticipated Discharge Date/Time: 02/23/22 09:58 Patient Disposition: Xfer Acute [facility] Discharge Diagnosis: unstable angina Referrals: Robbie Dudley MD [Primary Care Provider] - 1 Week Discharge Medications: New heparin(porcine) in 0.45% NaCl 25,000 unit/250 mL Parenteral Solution 25,000 unit continuous IV infusion .Q0M Qty: 0 0RF aspirin 81 mg Tablet,Delayed Release (Dr/Ec) 81 mg PO DAILY Qty: 0 0RF Continued lisinopril 2.5 mg tablet 2.5 mg PO DAILY Qty: 90 3RF rosuvastatin 10 mg tablet 10 mg PO DAILY Qty: 90 3RF omeprazole 40 mg capsule,delayed release(DR/EC) 40 mg PO DAILY Qty: 90 3RF cholecalciferol (vitamin D3) [Vitamin D3] 50 mcg (2,000 unit) Tablet 50 mcg PO DAILY Discharge Orders: Discharge Order (Routine); Ordered 02/23/22 Ordered By: Jhony Pineda Diet: Advance to usual diet Activity on Discharge: As tolerated Stand Alone Forms: Patient Portal Discharge page Care Plan Goals: manage unstable angina Health Concerns: unstable angina Plan of Treatment: transfer to [facility] for cath Assessment: see above
[2022-02-23 10:02] LABS: Hemoglobin 14.3 g/dl (14.0-18.0); Mean Corpuscular Hemoglobin 29.4 pg (27.0-33.0); Mean Corpuscular Volume 86.2 fL (80.0-98.0); Mean Platelet Volume 9.9 fL (9.4-12.4); Platelet Count 255 X10*3/uL (160-400); Red Blood Count 4.87 X10*6/uL (4.60-5.80); Red Cell Distribution Width 12.1 % (11.0-16.0); White Blood Count 10.7 X10*3/uL (4.8-10.8)
[2022-02-23 10:10] LABS: INTERNATIONAL NORM RATIO 1.3 (0.9-1.1); Prothrombin Time 15.3 SEC (10.0-13.1)
[2022-02-23 10:12] LABS: PTT Heparin Drip 34.6 SEC (53-77.9)
[2022-02-23] MEDS: Aspirin Enteric Coated 81 MG TABLET.DR PO (10:15)
--- NOTE | 2022-02-23 10:23 | MHC.CM.PN ---
pt to be dcd to [facility] today he is covid yefri and lives with his
--- NOTE | 2022-02-23 10:30 | MHC.EDTECH ---
@ 10:08AM CALL RECEIVED FROM [facility] ADMITTING DEPARTMENT ASKING FOR A FACE SHEET TO BE FAXED TO [phone], FOR THIS PT A TRANSFER. I WAS NOT AWARE OF THIS HAPPENING. FAXED IT TO THE FAX NUMBER PROVIDED @ THIS TIME
[2022-02-23] MEDS: Heparin Sodium,Porcine/1/2NS 25,000 UNIT/250 ML IV.SOLN 8.6 UNIT IVCONT (10:58)
--- NOTE | 2022-02-23 11:06 | MHC.EDTECH ---
@ 1106AM CALL PLACED TO [facility] PT [place] LINE [phone], TO FIND OUT ABOUT ROOM ASSIGNMENT GLORIA ANSWERS AND STATES WE ARE STILL WAITING FOR A ROOM ASSIGNMENT @ THIS TIME AND THEY WILL CALL US WHEN THEY HAVE ONE
[2022-02-23 12:03] VITALS: BP 133/81; PULSE 66; RESP 18; TEMP 36.2; O2SAT 96
--- NOTE | 2022-02-23 12:44 | MHC.EDTECH ---
@2098 CALL RECEIVED FROM MIRELLA OF THE [facility] PT [place] LINE WITH ROOM ASSIGNMENT MASS MUTUAL 5, ROOM [address] DR GARCIA ACCEPTING RN TO RN: [phone]
[2022-02-23 12:59] VITALS: BP 147/77; PULSE 54; RESP 15; TEMP 36.5; O2SAT 96
== END 2022-02-23 13:53 | disposition short-term general hospital (02) ==
LOC: HO.ED 20:26 → HO.EDOVER 20:46
PROVIDERS: Admitting Provider Student in an Organized Health Care Education/Training Program; Emergency Provider Internal Medicine; PCP Internal Medicine; Visit Provider Internal Medicine
DX: I20.0 Unstable angina (principal); I10 Essential (primary) hypertension; R07.9 Chest pain, unspecified; Z20.822 Contact with and (suspected) exposure to COVID-19; E78.00 Pure hypercholesterolemia, unspecified; F41.9 Anxiety disorder, unspecified; K22.70 Barrett's esophagus without dysplasia; K21.9 Gastro-esophageal reflux disease without esophagitis; Z79.02 Long term (current) use of antithrombotics/antiplatelets; Z79.899 Other long term (current) drug therapy
CPT/HCPCS: 0241U; 36415; 71045; 80048; 80053; 84484; 85025; 85027; 85379; 85610; 85652; 85730; 86140; 93005; 93306; 93356; 96372; 96374; 96375; 96376; 99222; 99285; J1643; J1650; J1885; Q9957

== ENCOUNTER → 2022-04-21 15:18 | Outpatient (BNVA) | payer BC, SELFPAY | PROVIDERS: PCP Internal Medicine; Visit Provider Nurse Practitioner Family | DX: Z01.810 Encounter for preprocedural cardiovascular examination (principal); R07.9 Chest pain, unspecified; R93.1 Abnormal findings on diagnostic imaging of heart and coronary circulation; I31.9 Disease of pericardium, unspecified | CPT/HCPCS: 93005 ==

== ENCOUNTER → 2022-04-22 07:47 | Outpatient (REF) | payer BC, SELFPAY ==
--- NOTE | 2022-04-22 07:50 | CA_ITS ---
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 The calculated ejection fraction is 58% by biplane method. - There is no evidence of pericardial effusion. Findings Left Ventricle Normal left ventricular cavity size. The left ventricular systolic function is normal. The calculated ejection fraction is 58% by biplane method. LV peak GLS -22.1%. Wall Motion Rest Echo Findings The basal inferior and basal inferolateral segments are hypokinetic. Pericardium/Pleural There is no evidence of pericardial effusion. Prior Study Comparison No significant change compared to prior study dated: 02/23/2022. Measurements 2D Linear Measurements IVSd: 1.09 0.6-0.9/0.6-1.0 cm LVIDd: 4.72 3.9-5.3/4.2-5.9 cm LVIDd Index: 2.73 2.4-3.2/2.2-3.1 cm/m2 LVIDs: 3.16 2.0-3.6 cm LVPWd: 0.92 0.7-1.1 cm LV Mass: 207.37 67-162/88-224 g LV Mass Index: 119.87 43-95/49-115 g/m2 2D Systolic Function EF 4C: 57.90 >55% EF 2C: 58.10 >55% EF BiP: 57.90 >55% Mitral Valve PHT: 70.00 MVA PHT: 3.14 Decel [place]: 3.30 Right Ventricle TAPSE (mm): 28.30 TVS' Rachid: 12.10 Tricuspid Valve RA Press: 8.00 Updated in Other Vendor System with Status of Final Aron Mcdaniels MD electronically signed on 04/24/2022 1:07:31 PM with status of Final
== END ==
LOC: HO.CARD 07:47
PROVIDERS: PCP Internal Medicine; Visit Provider Nurse Practitioner Family
DX: I31.9 Disease of pericardium, unspecified (principal)
CPT/HCPCS: 93308; 93356

== ENCOUNTER 2022-05-11 06:25 | Day surgery (SDC) | payer BC, SELFPAY ==
[2022-05-11 06:22] VITALS: BMI 25.7
[2022-05-11 06:39] VITALS: BP 127/87; PULSE 67; RESP 20; TEMP 36.1; O2SAT 98
[2022-05-11] MEDS: Lactated Ringers 1,000 ML 50 ML IVCONT (06:57)
--- NOTE | 2022-05-11 07:31 | HO.ANESPROP2 ---
HPI - Anesthesia Eval Consult details Narrative: Barretts Esophagus and colonic surveillance [facility] Active Problems Active Problems: All Active Problems (Updated 05/11/22 @ 06:28 by Mell Goldsmith RN) Bronchitis (Acute) COVID-19 (Acute) Annual physical exam (Acute) Annual physical exam (Acute) Fatigue (Acute) ACS (acute coronary syndrome) (Acute) Chest pain (Acute) Left ventricular hypokinesis (Acute) Pericarditis (Acute) Hospital discharge follow-up (Acute) Abnormal echocardiogram findings without diagnosis (Acute) Preop cardiovascular exam (Acute) S/P cardiac cath (Acute) Overweight (BMI 25.0-29.9) (Acute) Depression (Acute) Anxiety (Acute) Vitamin D deficiency (Acute) GERD without esophagitis (Acute) Covington's esophagus without dysplasia (Acute) Impaired fasting glucose (Acute) Pure hypercholesterolemia (Acute) Benign essential hypertension (Acute) Past Medical History Medical History Anxiety Covington's esophagus without dysplasia Benign essential hypertension Broken wrist Depression GERD without esophagitis History of Covington's esophagus Impaired fasting glucose Overweight (BMI 25.0-29.9) Pure hypercholesterolemia Vitamin D deficiency Family History Family History Mother No problems noted. Father No problems noted. Family history of problems with anesthesia: No Surgical History Surgical History History of esophagogastroduodenoscopy (EGD) Hx of colonoscopy No pertinent past surgical history S/P cardiac cath History of Problems with Anesthesia: No Social History Social History Housing: House Alcohol intake: current Alcohol intake frequency: holidays/special occasions only Patient Tobacco Use Status: Never used Tobacco e-Cigarette/Vaping Use: Never Used Second Hand Smoke Exposure: Yes Are you DNR?: No Advance Directives: No Advance Directives Information Provided: Yes Nutrition Risks: No Nutritional Risk service: No Current occupational status: employed Current occupational exposures/hazards: No Cognitive needs: No Hearing needs: No Vision needs: Yes Meds Allergies Allergy/AdvReac Type Severity Reaction Status Date / Time Penicillins [PCN] Allergy Mild RASH Verified 04/21/22 15:42 penicillin V Allergy Unknown rash Verified 04/21/22 15:42 Active Medications: Current Medications Lactated Ringer's (Lr) 1,000 mls @ 50 mls/hr IVCONT .Q20H DEEPTI Last Admin: 05/11/22 06:57 Dose: 50 mls/hr Sodium Biphosphate/Sodium Phosphate (Sodium Phosphate,[place]-Dibasic 133 Ml Enema) 133 ml [place] ONCE PRN PRN Reason: Poor Colonoscopy Prep Results Home Medications Medication Instructions Recorded Confirmed Last Taken Type cholecalciferol (vitamin D3) 50 50 mcg PO DAILY 02/23/22 04/22/22 05/10/22 History mcg (2,000 unit) tablet (Vitamin D3) colchicine 0.6 mg tablet 0.6 mg PO DAILY 02/27/22 04/22/22 05/10/22 History Exam Exam Date and Time: May 11, 202231 Height,Weight and Vital Signs: Height 5 ft 5 in Weight 68.039 kg Last Vital Signs Temp 97 F 05/11/22 06:39 Pulse 67 05/11/22 06:39 Resp 20 05/11/22 06:39 BP 127/87 05/11/22 06:39 Pulse Ox 98 05/11/22 06:39 O2 Del Method Room Air 05/11/22 06:39 Airway Mallampati Class: II TM Dist: >3cm Neck ROM: Full Loose/Missing/Broken Teeth: Yes (upper front implant) Heart: [id number] Lungs: cta b/l Assessment and Plan Assessment Anesthesia Assessment: Anesthesia Plan Discussed and Chart Reviewed Final Anesthetic Review Family History of Problems with Anesthesia: No History of Problems with Anesthesia: No NPO: Yes ASA Class: III Final Preanesthetic Review: No Changes in Pt Med Stat, Meds/Allgs Chart Reviewed, Consent Obtained/Reviewed and Anes Risks/Benef Reviewed Patient Risk: Intermediate Procedure Risk: Intermediate Assessment/Block/Sedation in SS: Assess/Block/Sedation-SS Anesthetic Plan Anesthetic Plan: MAC: and Agree w/ Assess. and Plan Disposition: Standard PACU
[2022-05-11 08:35] VITALS: BP 85/45; PULSE 60; RESP 17; TEMP 36.6; O2SAT 96
--- NOTE | 2022-05-11 08:38 | P.BOP_ITS ---
Brief Operative Note Date of Service: 05/11/22 Pre-op diagnosis: GERD, Covington's, Screening Post-op diagnosis: other (Hiatal hernia, Polyps) Procedure: EGD with biopsies, Colonoscopy to the cecum and TI with bx/removal of polyps and cold snare polypectomy at 40cm Surgeon: Bj Spencer Anesthesia: MAC Was an Guitar Repair Technician used for this Procedure?: No Estimated blood loss (mL): 2.0 Pathology: other (A. Gastric antrum B. EG Junction at 38cm C. Cecal polyp D. Polyp at 40cm E. Rectal polyp) Condition: stable Disposition: PACU
[2022-05-11 08:50] VITALS: BP 94/53; PULSE 53; RESP 16; O2SAT 96
[2022-05-11 09:05] VITALS: BP 116/63; PULSE 52; RESP 16; TEMP 36.6; O2SAT 97
--- NOTE | 2022-05-11 09:58 | OP_ITS ---
DATE OF SERVICE: 05/11/2022 SURGEON: Bj Spencer MD INDICATIONS: The patient presents for evaluation of chronic reflux, history of Covington's esophagus, personal history of tubular adenomas of the colon and need for colorectal cancer screening. Full consent has been obtained from him for both procedures, including risks of bleeding and perforation. PREOPERATIVE DIAGNOSIS: POSTOPERATIVE DIAGNOSIS: PROCEDURE PERFORMED: Esophagogastroduodenoscopy with biopsies and colonoscopy to the cecum and terminal ilium with biopsy and removal of polyp and cold snare polypectomy. ESTIMATED BLOOD LOSS: COMPLICATIONS: ANESTHESIA: Monitored anesthesia care. ASSISTANTS: SPECIMENS: PREOPERATIVE DIAGNOSES: Gastroesophageal reflux, Covington's esophagus, personal history of tubular adenomas of the colon, and colorectal cancer screening. POSTOPERATIVE DIAGNOSES: Gastroesophageal reflux, Covington's esophagus, personal history of tubular adenomas of the colon, colorectal cancer screening, small hiatal hernia, rule out gastritis, colon polyps, diverticulosis and internal hemorrhoids. DESCRIPTION OF PROCEDURE: The patient was placed in the left lateral decubitus position. The Medicine in Practice video gastroscope was passed in the posterior oropharynx and upper esophagus under direct vision. The scope was passed slowly to the distal esophagus. The gastroesophageal junction appeared at 38 cm. There was some minimal irregularity consistent with reflux, but no evidence of esophagitis nor any definitive evidence of Covington's mucosa. The scope entered into the stomach, there was a small hiatal hernia. The scope was advanced to the pylorus, and the duodenum was cannulated to the descending portion. The duodenum including the bulb appeared normal with mass or ulceration. The scope was withdrawn back in the stomach. The gastric antrum and body had some areas of erythema and edema, but no erosions or ulcerations. There was good peristalsis. Biopsies were obtained from the gastric antrum. The scope was retroflexed visualizing the proximal stomach carefully, which appeared normal, without any sign of mass or ulceration. The scope was straightened. The scope was withdrawn back in the esophagus. Biopsies were obtained at the EG junction at 38 cm. Proximal to that, the esophageal mucosa appeared normal. The scope was withdrawn from the patient. He was turned around for the colonoscopy. The digital rectal exam revealed no abnormalities. The Medicine in Practice video pediatric colonoscope was entered into the rectum and advanced easily to the cecum. Once in the cecum, I did identify normal-appearing cecal pouch other than a questionable 3 or 4 mm polyp which was biopsied and completely removed with the cold biopsy forceps. The remainder of the cecum appeared normal. The terminal ileum was cannulated and appeared normal. The scope was withdrawn back in the colon. The scope was then slowly withdrawn assessing all mucosal surface carefully. Preparation was excellent. At 40 cm an approximately 5 mm polyp was removed by cold snare polypectomy and recovered by suction. The polypectomy site appeared clean, without any sign of residual polyp nor significant bleeding. In the proximal rectum, there was an approximately 3 mm polyp which was biopsied and completely removed with a cold biopsy forceps. I did not visualize any sign of other polyps, colitis, nor angiodysplasia. There was a mild amount of sigmoid diverticulosis. In the rectum, the scope was retroflexed visualizing internal hemorrhoids, but no other pathology. The rectal mucosa otherwise appeared normal. The scope was straightened and withdrawn from the patient. He tolerated the procedure well and was returned to the recovery area in stable condition. IMPRESSION: 1. Colon polyps. 2. Small hiatal hernia, gastroesophageal reflux, rule out Covington's esophagus. 3. Christian out gastritis. 4. Diverticulosis. 5. Internal hemorrhoids. PLAN: The results of the biopsies will be checked. I would recommend a repeat colonoscopy in 5 years for further surveillance. If again there is no sign of Covington's esophagus, I do not think he will need any further upper endoscopies given two previous endoscopies that were negative for Covington's esophagus after the original finding of the small area in 2008. He will continue his omeprazole. He was advised not to use any aspirin or NSAIDs for 1 week. He will see me on a p.r.n. basis. This has been discussed with his . MD STEVAN Bernal/KEELEY / [phone] MTDReinaldo
== END 2022-05-11 09:38 | disposition home or self-care (01) ==
PROVIDERS: PCP Internal Medicine; Visit Provider Internal Medicine
PROC: (CPT 45385; principal; 2022-05-11 07:30)
DX: Z12.11 Encounter for screening for malignant neoplasm of colon (principal); Z86.010 Personal history of colon polyps; D12.0 Benign neoplasm of cecum; D12.5 Benign neoplasm of sigmoid colon; K62.1 Rectal polyp; K57.30 Diverticulosis of large intestine without perforation or abscess without bleeding; K64.8 Other hemorrhoids; K21.9 Gastro-esophageal reflux disease without esophagitis; Z87.19 Personal history of other diseases of the digestive system; K29.50 Unspecified chronic gastritis without bleeding; K44.9 Diaphragmatic hernia without obstruction or gangrene
CPT/HCPCS: 45385; 45380; 43239; 88305; 88342; J2250

== ENCOUNTER 2022-06-12 06:06 | Outpatient (REF) | payer BC, SELFPAY ==
[2022-06-12 11:39] LABS: MANUAL DIFF FLAG NO
[2022-06-12 11:55] LABS: Appearance Urine Turbid; Color Urine Yellow; Glucose Urine UA Negative (Negative); Leukocyte Esterase Urine Negative (Negative); Nitrite Urine Negative (Negative); Specific Gravity - Urine 1.025 (1.005-1.025); Urine Blood Negative (Negative); Urine Ketones Negative (Negative); Urine Protein Negative (Neg-Trace)
[2022-06-12 12:02] LABS: Basophils Absolute Auto 0.1 X10*3/uL (0.0-0.2); Basophils Percent Auto 1.2 % (0-2); Eosinophils Absolute Auto 0.7 X10*3/uL (0.0-0.4); Eosinophils Percent Auto 12.8 % (0-4); Hematocrit 40.8 % (42.0-52.0); Hemoglobin 13.4 g/dl (14.0-18.0); Imm Gran Abs Auto 0.01 X10*3/uL (0.00-0.03); Imm Gran Pct Auto 0.2 % (0.0-0.4); Lymphocytes Absolute Auto 1.8 X10*3/uL (1.2-4.9); Lymphocytes Percent Auto 34.8 % (20-40); Mean Corpuscular HGB Conc 32.8 g/dl (31.0-36.0); Mean Corpuscular Hemoglobin 29.4 pg (27.0-33.0); Mean Corpuscular Volume 89.5 fL (80.0-98.0); Mean Platelet Volume 10.9 fL (9.4-12.4); Monocytes Absolute Auto 0.4 X10*3/uL (0.1-1.2); Monocytes Percent Auto 7.2 % (2-11); Neutrophils Absolute Auto 2.3 x10*3/uL (2.0-8.3); Neutrophils Percent Auto 43.8 % (45-73); Platelet Count 234 X10*3/uL (160-400); Red Blood Count 4.56 X10*6/uL (4.60-5.80); Red Cell Distribution Width 12.7 % (11.0-16.0); White Blood Count 5.2 X10*3/uL (4.8-10.8)
[2022-06-12 12:07] LABS: Estimated Average Glucose 117 mg/dL; Hemoglobin A1C 137.3553 umol/L; Hemoglobin A1c % 5.7 %
[2022-06-12 12:33] LABS: Alanine Aminotransferase 20 U/L (0-40); Albumin Level 4.1 g/dL (3.5-5.0); Alkaline Phosphatase 89 U/L (39-117); Anion Gap 9 (12-20); Aspartate Amino Transferase 22 U/L (5-37); Bilirubin Total 0.6 mg/dL (0.0-1.0); Blood Urea Nitrogen 18 mg/dL (9-16); Carbon Dioxide 28 mmol/L (22-29); Chloride 108 mmol/L (96-108); Cholesterol 156 mg/dL; Estimated Glomerular Filt Rate > 60; Glucose Fasting 109 mg/dL (60-99); HDL Cholesterol 39 mg/dL; LDL Cholesterol Calculated 106 mg/dl; Potassium 3.9 mmol/L (3.3-5.1); Sodium 141 mmol/L (135-145); Total Protein 6.4 g/dL (6.5-8.0); Triglycerides 57 mg/dL
[2022-06-12 12:34] LABS: Vitamin D 25-OH Total 28.9 ng/mL (>30)
[2022-06-12 12:40] LABS: Erythrocyte Sedimentation Rate 3 MM/HR (0-15)
[2022-06-15 18:03] LABS: CRP High Sensitivity 0.5 mg/L
== END 2022-06-12 06:07 | disposition home or self-care (01) ==
LOC: HO.HMGCLDS 06:06
PROVIDERS: Nurse Practitioner Family; PCP Internal Medicine; Visit Provider Internal Medicine
DX: E78.00 Pure hypercholesterolemia, unspecified (principal); R53.83 Other fatigue; R73.01 Impaired fasting glucose; I10 Essential (primary) hypertension; E55.9 Vitamin D deficiency, unspecified; I31.9 Disease of pericardium, unspecified
CPT/HCPCS: 36415; 80053; 80061; 81003; 82306; 83036; 84443; 85025; 85652; 86141

== ENCOUNTER 2022-09-22 06:17 | Outpatient (REF) | payer BC, SELFPAY ==
[2022-09-22 12:28] LABS: Alanine Aminotransferase 25 U/L (0-40); Albumin Level 4.3 g/dL (3.5-5.0); Alkaline Phosphatase 87 U/L (39-117); Anion Gap 9 (12-20); Aspartate Amino Transferase 25 U/L (5-37); Bilirubin Total 0.8 mg/dL (0.0-1.0); Blood Urea Nitrogen 16 mg/dL (9-16); Calcium 9.4 mg/dL (8.4-10.2); Carbon Dioxide 28 mmol/L (22-29); Chloride 107 mmol/L (96-108); Cholesterol 160 mg/dL; Estimated Glomerular Filt Rate > 60; Glucose Fasting 91 mg/dL (60-99); HDL Cholesterol 46 mg/dL; LDL Cholesterol Calculated 100 mg/dl; Potassium 4.1 mmol/L (3.3-5.1); Sodium 140 mmol/L (135-145); Total Protein 7.2 g/dL (6.5-8.0); Triglycerides 74 mg/dL
== END 2022-09-22 06:18 | disposition home or self-care (01) ==
LOC: HO.HMGCLDS 06:17
PROVIDERS: PCP Internal Medicine; Visit Provider Internal Medicine
DX: E78.00 Pure hypercholesterolemia, unspecified (principal)
CPT/HCPCS: 36415; 80053; 80061

== ENCOUNTER 2022-09-25 08:23 | Outpatient (AMB) | payer BC, SELFPAY ==
[2022-09-25 08:38] VITALS: BP 120/78; PULSE 55; O2SAT 97; BMI 26.0
--- NOTE | 2022-09-25 08:38 | A.OFFPC_ITS ---
Vital Signs 09/25/22 08:38 Height 5 ft 5 in Weight 156 lb BMI 26.0 BP 120/78 Blood Pressure Location Lt brachial Position Sitting Pulse 55 Pulse Source Pulse Oximeter Pulse Oximetry (%) 97 Oxygen Delivery Method Room Air Intake Visit Reasons: HTN, hypercholestermia, GERD Installment Agent Required: No Accompanied by: Self / Same As Patient Allergies Penicillins [PCN] Allergy (Mild, Verified 09/25/22 08:38) RASH penicillin V Allergy (Unknown, Verified 09/25/22 08:38) rash Tobacco use date assessed: 09/25/22 Dental Screening Dental Screen Date: 09/25/22 Did you have a dental visit in the last 12 months?: Yes Did you have a dental problem in the last 6 months where you did not have access to dental care?: No Was dental information given to patient?: Patient has dentist HPI HPI Comments History of Present Illness Details 57-year-old male past medical history significant for ACS, pericarditis s/p cardiac catheterization in February, depression, anxiety, GERD, Covington's esophagus, hypercholesteremia and BPH.? Patient Dr. Luis Enrique mustafa seen in June patient presents today for follow up visit. Patient taking gas-x OTC for belching, Patient advised to increase simitehcone dose to 180mg. Patient states little sluggish at times, for which he believes because his job is more physical now. Patient reports diarrhea 1-2 weekly and fells at time trouble having good BM. Denies abd pain, blood in stool, recommended otc metamucil and drink plenty of water to promote regular BMs. [facility] Medical History Anxiety Covington's esophagus without dysplasia Benign essential hypertension Broken wrist Depression GERD without esophagitis History of Covington's esophagus Impaired fasting glucose Overweight (BMI 25.0-29.9) Pure hypercholesterolemia Vitamin D deficiency Surgical History History of esophagogastroduodenoscopy (EGD) Hx of colonoscopy No pertinent past surgical history S/P cardiac cath Family History Mother No problems noted. Father No problems noted. Social History Housing: House Alcohol intake: current Alcohol intake frequency: holidays/special occasions only Patient Tobacco Use Status: Never used Tobacco e-Cigarette/Vaping Use: Never Used Second Hand Smoke Exposure: Yes service: No Current occupational status: employed Current occupational exposures/hazards: No Cognitive needs: No Hearing needs: No Vision needs: Yes Questionnaire PHQ-9 Over the last 2 weeks, how often have you been bothered by any of the following problems? 1. Little interest or pleasure in doing things: not at all 2. Feeling down, depressed, or hopeless: not at all 3. Trouble falling or staying asleep, or sleeping too much: not at all 4. Feeling tired or having little energy: not at all 5. Poor appetite or overeating: not at all 6. Feeling bad about yourself - or that you are a failure or have let yourself or your family down: not at all 7. Trouble concentrating on things, such as reading the newspaper or watching television: not at all 8. Moving or speaking so slowly that other people could have noticed. Or the opposite - being so fidgety or restless that you have been moving around a lot more than usual: not at all 9. Thoughts that you would be better off or of hurting yourself in some way: not at all Total score: 0 Depression Screening Interpretation: Negative 48986 - PHQ-9 Billing: Yes Source: Developed by Drs. Bj Goldberg, Cheri Adorno, Imer Rivers and colleagues, with an educational emerald from [employer]. Thrive Questionnaire Date Thrive assessed: 09/25/22 I am a: Patient What is your living situation today?: I have a steady place to live Within the past 12 months, did the food you bought not last and you didn't have the money to get more?: Never true Within the past 12 months, did you worry whether your food would run out before you got money to buy more?: Never true Do you have trouble paying for medicines?: No Do you have trouble getting transportation to medical appointments?: No Do you have trouble paying your heating and electricity bill?: No Do you have trouble taking care of your child, family member or friend?: No Do you have trouble with day-to-day activities such as bathing, preparing meals, shopping, managing finances, etc.?: No Are you currently unemployed and looking for a job?: No Are you interested in more education?: No Please select the resources that you would like help with: None Currently or been in a relationship where the following occur: no concerns repo rted AUDIT C Alcohol Use Questionnaire (AUDIT-C) 1. How often do you have a drink containing alcohol?: Monthly or less 2. How many drinks containing alcohol do you have on a typical day when you are drinking?: 1 or 2 3. How often do you have six or more drinks on one occasion?: Never Total Score: 1 Score Reviewed/Action Taken: Yes PADMINI-7 AMB Questionnaire PADMINI-7 Date PADMINI - 7 assessed: 09/25/22 Feeling nervous, anxious, or on edge: 0 = Not at all Not being able to stop or control worryin = Not at all Worrying too much about different things: 0 = Not at all Trouble relaxin = Not at all Being so restless that it is hard to sit still: 0 = Not at all Becoming easily annoyed or irritable: 0 = Not at all Feeling afraid as if something awful might happen: 0 = Not at all Total PADMINI-7 score (0-4 normal; 5-9 mild; 10-14 moderate; 15-21 severe): 0 Source: Developed by Drs. Bj Goldberg, Cheri Adorno, Imer Rivers and colleagues, with an educational emerald from [employer]. Review of Systems Const Denies chills, Denies fatigue, Denies fever(s) and Denies poor appetite Eyes Denies no additional complaints ENT Reports Normal hearing present Card Denies chest pain, Denies syncope, Denies rapid heart rate and Denies dyspnea Resp Denies cough and Denies dyspnea GI Denies change in stool character, Denies constipation, Denies diarrhea, Denies nausea and Denies vomiting Denies dysuria, Denies urinary frequency and Denies urinary urgency Neuro Reports Normal hearing present, Denies confusion and Denies syncope Psych Denies confusion Endo Denies fatigue Physical exam (Primary Care) Vital Signs: Last Vital Signs Pulse 55 09/25/22 08:38 BP 120/78 09/25/22 08:38 Pulse Ox 97 09/25/22 08:38 Oxygen Delivery Method Room Air 09/25/22 08:38 BMI result Body Mass Index 26.0 Tobacco/Smoking Status: Tobacco use Status Tobacco use date assessed 09/25/22 09/25/22 08:43 Patient Tobacco Use Status Never used Tobacco 09/25/22 08:43 e-Cigarette/Vaping Use Never Used 09/25/22 08:43 PHQ-9: PHQ-9 Score PHQ-9: Total score 0 09/25/22 08:48 Depression Screening Interpretation: Negative Thrive Assessment: Date of Thrive Assessment Date Thrive assessed 09/25/22 09/25/22 08:43 Currently or been in a relationship where the following occur: no concerns reported Const General: No confusion Orientation/consciousness: No confusion HENMT Head: Yes normocephalic and Yes atraumatic Eyes Conjunctivae: conjunctivae normal Chest Chest palpation & inspection: normal inspection of the chest Resp Effort & Inspection: normal respiratory effort Auscultation: clear to auscultation bilaterally, no crackles, no rhonchi and no wheezes Cardio Rate: regular rate Rhythm: regular rhythm Heart sounds: S1 normal heart sound present and S2 normal heart sound present GI Inspection: Yes normal to inspection Neuro General: No confusion Cranial nerves: Yes Normal hearing present Extrem General: No edema Assessment and Plan Assessment & Plan (1) Benign essential hypertension: Code(s): I10 - Essential (primary) hypertension Plan: Continue on lisinopril. Follow low-salt diet and exercise. (2) Pure hypercholesterolemia: Code(s): E78.00 - Pure hypercholesterolemia, unspecified Plan: Continue on rosuvastatin. Avoid fried foods, chicken skin, eggs, butter,margarine, pastries and? red meat. (3) GERD without esophagitis: Code(s): K21.9 - Gastro-esophageal reflux disease without esophagitis Plan: Continue on omeprazole 40 mg daily. ?Avoid the foods that cause that, usually spicy foods, tomato products, juices, coffee, soda and foods that you're sensitive to.? After eating do not lie down, allow 3-4 hours before lying down. And keep the head of the bed above 30 degrees to avoid the acid from going up. Plan Follow-up 6 months or sooner if needed. Coding Level of Care Code Est Pt Level 3 (38058) Diagnoses Benign essential hypertension I10 Pure hypercholesterolemia E78.00 GERD without esophagitis K21.9
== END 2022-09-25 09:07 | disposition home or self-care (01) ==
PROVIDERS: PCP Internal Medicine; Visit Provider Nurse Practitioner Family
DX: I10 Essential (primary) hypertension (principal); E78.00 Pure hypercholesterolemia, unspecified; K21.9 Gastro-esophageal reflux disease without esophagitis
CPT/HCPCS: 99213

== ENCOUNTER 2022-10-28 10:11 | Outpatient (AMB) | payer BC, SELFPAY ==
[2022-10-28 10:27] VITALS: BP 120/72; PULSE 65; BMI 25.6
--- NOTE | 2022-10-28 10:27 | MHC.OFFVIS ---
Intake Vital Signs 10/28/22 10:27 Height 5 ft 5 in Weight 153 lb 14.122 oz BMI 25.6 BP 120/72 Blood Pressure Location Lt brachial Position Sitting Pulse 65 Pulse Source Pulse Oximeter Intake Visit Reasons: 6 MON FUP PER DC Intake Note: 6 month f/u Hand Sewer Shoes Required: No Allergies Penicillins [PCN] Allergy (Mild, Verified 10/28/22 10:32) RASH penicillin V Allergy (Unknown, Verified 10/28/22 10:32) rash Medication List - Last Reconciled 10/28/22 by Benton Burns MD cholecalciferol (vitamin D3) (Vitamin D3) 50 mcg PO DAILY lisinopril 2.5 mg PO DAILY omeprazole 40 mg PO DAILY rosuvastatin 10 mg PO DAILY HPI HPI Comments History of Present Illness Details 57-year-old gentleman who is here for follow-up. He was seen in the hospital when he presented with chest discomfort and basal inferior wall motion abnormality. He was transferred for cardiac catheterization which showed no significant coronary disease. His EKG evolved into pericarditis while he was at [facility]. Subsequent to that he was treated with colchicine and improved. He had repeat echocardiography in April 2022 which showed EF of 58% with basal inferior inferolateral hypokinesis. He did not have any troponin rise during the hospital admission to suggest myocarditis. Clinically has done well. He said he was burping significantly more before he started having chest discomfort when he has pericarditis. He has been experiencing significant burping recently. He follows with GI and sees Dr. Spencer. [facility] Medical History Anxiety Covington's esophagus without dysplasia Benign essential hypertension Broken wrist Depression GERD without esophagitis History of Covington's esophagus Impaired fasting glucose Overweight (BMI 25.0-29.9) Pure hypercholesterolemia Vitamin D deficiency Surgical History History of esophagogastroduodenoscopy (EGD) Hx of colonoscopy S/P cardiac cath No pertinent past surgical history Family History Mother No problems noted. Father No problems noted. Social History Housing: House Alcohol intake: current Alcohol intake frequency: holidays/special occasions only Patient Tobacco Use Status: Never used Tobacco e-Cigarette/Vaping Use: Never Used Second Hand Smoke Exposure: Yes service: No Current occupational status: employed Current occupational exposures/hazards: No Cognitive needs: No Hearing needs: No Vision needs: Yes Review of Systems ENT Reports dizziness Card Denies chest pain, Denies chest pain at rest, Denies chest pain with activity, Denies rapid heart rate, Denies pedal edema, Denies edema, Denies leg edema, Denies lightheadedness, Denies palpitations, Denies dyspnea, Denies dyspnea on exertion and Denies orthopnea Resp Denies cough, Denies dyspnea and Denies dyspnea on exertion GI Denies hematochezia and Denies change in stool character Musc Denies abnormal gait, Reports limited range of motion, Reports muscle cramps, Denies muscle weakness, Denies numbness, Denies radiating pain into limb, Denies stiffness and Denies tingling Neuro Denies abnormal gait, Reports dizziness, Denies numbness and Denies tingling Endo Denies palpitations Physical Exam Vital Signs: Last Vital Signs Pulse 65 10/28/22 10:27 BP 120/72 10/28/22 10:27 BMI result Body Mass Index 25.6 GENERAL APPEARANCE: in no acute distress, pleasant. NECK: no carotid bruit, no jugular venous distention. SKIN: no suspicious lesions, warm and dry. HEART: no murmurs, regular rate and rhythm. LUNGS: clear to auscultation bilaterally. ABDOMEN: soft, nontender. EXTREMITIES: no edema. PERIPHERAL PULSES: equal. NEUROLOGIC: No gross deficits, AAO X 3 Assessment & Plan Assessment & Plan (1) Benign essential hypertension: Code(s): I10 - Essential (primary) hypertension (2) Pericarditis: Code(s): I31.9 - Disease of pericardium, unspecified Plan 57-year-old gentleman with background history of acute pericarditis for which he was treated with colchicine. He has been off colchicine at this stage. He has hypertension and blood pressure control is good with lisinopril 2.5 mg daily. He is taking rosuvastatin 10 mg daily. He should have yearly fasting lipid panel. Clinically has been stable. He has some wall motion abnormalities noted but basal inferior wall motion abnormality is quite frequently over called. He did not have any biomarker rise to suggest myocarditis and I think we do not need to cardiac MRI or any further testing right now. I have advised him that if he develops any new symptoms like dyspnea, chest discomfort or palpitations/dizziness he needs to get in touch with us. He will see us back otherwise in 6 months. Thank you for allowing me to participate in the care of your patient. Please feel free to contact me if you have any questions. Coding Level of Care Code Est Pt Level 4 (82469) Diagnoses Benign essential hypertension I10 Pericarditis I31.9
== END 2022-10-28 10:50 | disposition home or self-care (01) ==
PROVIDERS: PCP Internal Medicine; Referring Provider Internal Medicine; Visit Provider Internal Medicine Cardiovascular Disease
DX: I10 Essential (primary) hypertension (principal); I31.9 Disease of pericardium, unspecified
CPT/HCPCS: 99214

== ENCOUNTER → 2022-10-28 10:11 | Outpatient (BNVA) | payer BC, SELFPAY | PROVIDERS: PCP Internal Medicine; Referring Provider Internal Medicine; Visit Provider Internal Medicine Cardiovascular Disease ==

== ENCOUNTER 2023-03-22 08:54 | Outpatient (AMB) | payer BC, SELFPAY ==
[2023-03-22 08:55] VITALS: BP 132/76; PULSE 70; O2SAT 98; BMI 26.7
--- NOTE | 2023-03-22 08:55 | MHC.PC.OV ---
Vital Signs 03/22/23 08:55 Height 5 ft 5 in Weight 160 lb 4 oz BMI 26.7 BP 132/76 Blood Pressure Location Lt brachial Position Sitting Pulse 70 Pulse Source Pulse Oximeter Pulse Oximetry (%) 98 Oxygen Delivery Method Room Air Intake Visit Reasons: 6m follow up Program Manager Slp Required: No Accompanied by: Self / Same As Patient Allergies Penicillins [PCN] Allergy (Mild, Verified 03/22/23 09:13) RASH penicillin V Allergy (Unknown, Verified 03/22/23 09:13) rash Medication List - Last Reconciled 03/22/23 by Robbie Dudley MD cholecalciferol (vitamin D3) (Vitamin D3) 50 mcg PO DAILY lisinopril 2.5 mg PO DAILY omeprazole 40 mg PO DAILY rosuvastatin 10 mg PO DAILY Tobacco use date assessed: 03/22/23 Dental Screening Dental Screen Date: 03/22/23 Did you have a dental visit in the last 12 months?: Yes Did you have a dental problem in the last 6 months where you did not have access to dental care?: No Was dental information given to patient?: Patient has dentist HPI 6m follow up HPI Details Patient comes in today for his follow up visit - was last seen by me on 11/03/2021 Patient states that he feels well He denies any headaches or dizziness Denies any chest pains, no SOB No nausea/vomiting, no abdominal pain No change in bowel habits noted Needs his Omeprazole Rx refilled and sent to his mail order pharmacy Has no follow up labs ordered or done recently He is aware that he has gained a lot of weight lately and would like to get a referral to see optical model maker and tester to get some advice [facility] Medical History (Updated 03/22/23 @ 09:29 by Robbie Dudley MD) History of pericarditis (~02/2022) History of Covington's esophagus Overweight (BMI 25.0-29.9) Depression Anxiety Vitamin D deficiency GERD without esophagitis Covington's esophagus without dysplasia Pure hypercholesterolemia Benign essential hypertension Impaired fasting glucose Broken wrist Surgical History (Updated 03/22/23 @ 09:29 by Robbie Dudley MD) History of esophagogastroduodenoscopy (EGD) Hx of colonoscopy S/P cardiac cath Family History Mother No problems noted. Father No problems noted. Social History Housing: House Alcohol intake: current Alcohol intake frequency: holidays/special occasions only Patient Tobacco Use Status: Never used Tobacco e-Cigarette/Vaping Use: Never Used Second Hand Smoke Exposure: Yes service: No Current occupational status: employed Current occupational exposures/hazards: No Cognitive needs: No Hearing needs: No Vision needs: Yes Questionnaire PHQ-9 Over the last 2 weeks, how often have you been bothered by any of the following problems? 1. Little interest or pleasure in doing things: not at all 2. Feeling down, depressed, or hopeless: not at all 3. Trouble falling or staying asleep, or sleeping too much: not at all 4. Feeling tired or having little energy: not at all 5. Poor appetite or overeating: not at all 6. Feeling bad about yourself - or that you are a failure or have let yourself or your family down: not at all 7. Trouble concentrating on things, such as reading the newspaper or watching television: not at all 8. Moving or speaking so slowly that other people could have noticed. Or the opposite - being so fidgety or restless that you have been moving around a lot more than usual: not at all 9. Thoughts that you would be better off or of hurting yourself in some way: not at all Total score: 0 Depression Screening Interpretation: Negative Depression Screening Done: Yes 10110 - PHQ-9 Billing: Yes Source: Developed by Drs. Bj Goldberg, Cheri Adorno, Imer Rivers and colleagues, with an educational emerald from [employer]. Thrive Questionnaire Date Thrive assessed: 03/22/23 I am a: Patient What is your living situation today?: I have a steady place to live Within the past 12 months, did the food you bought not last and you didn't have the money to get more?: Never true Within the past 12 months, did you worry whether your food would run out before you got money to buy more?: Never true Do you have trouble paying for medicines?: No Do you have trouble getting transportation to medical appointments?: No Do you have trouble paying your heating and electricity bill?: No Do you have trouble taking care of your child, family member or friend?: No Do you have trouble with day-to-day activities such as bathing, preparing meals, shopping, managing finances, etc.?: No Are you currently unemployed and looking for a job?: No Are you interested in more education?: No Please select the resources that you would like help with: None Currently or been in a relationship where the following occur: no concerns reported THRIVE Score: 0 AUDIT C Alcohol Use Questionnaire (AUDIT-C) 1. How often do you have a drink containing alcohol?: Monthly or less 2. How many drinks containing alcohol do you have on a typical day when you are drinking?: 1 or 2 3. How often do you have six or more drinks on one occasion?: Never Total Score: 1 Score Reviewed/Action Taken: Yes PADMINI-7 AMB Questionnaire PADMINI-7 Date PADMINI - 7 assessed: 03/22/23 Feeling nervous, anxious, or on edge: 0 = Not at all Not being able to stop or control worryin = Not at all Worrying too much about different things: 0 = Not at all Trouble relaxin = Not at all Being so restless that it is hard to sit still: 0 = Not at all Becoming easily annoyed or irritable: 0 = Not at all Feeling afraid as if something awful might happen: 0 = Not at all Total PADMINI-7 score (0-4 normal; 5-9 mild; 10-14 moderate; 15-21 severe): 0 Source: Developed by Drs. Bj Goldberg, Cheri Adorno, Imer Rivers and colleagues, with an educational emerald from [employer]. Review of Systems Const Denies chills, Denies fatigue, Denies fever(s), Denies headache(s) and Reports weight gain ENT Denies dysphagia, Denies dizziness, Denies otalgia, Denies headache(s), Denies neck pain, Denies odynophagia and Denies sore throat Card Denies chest pain, Denies palpitations and Denies dyspnea Resp Denies cough and Denies dyspnea GI Denies abdominal pain, Denies constipation, Denies dysphagia, Denies heartburn, Denies diarrhea, Denies nausea, Denies odynophagia and Denies vomiting Denies dysuria, Denies nocturia and Denies urinary frequency Musc Denies back pain and Denies neck pain Skin/Breast Denies rash Neuro Denies dizziness and Denies headache(s) Endo Denies fatigue and Denies palpitations Physical exam (Primary Care) Vital Signs: Last Vital Signs Pulse 70 03/22/23 08:55 BP 132/76 03/22/23 08:55 Pulse Ox 98 03/22/23 08:55 Oxygen Delivery Method Room Air 03/22/23 08:55 BMI result Body Mass Index 26.7 Tobacco/Smoking Status: Tobacco use Status Tobacco use date assessed 03/22/23 03/22/23 08:59 Patient Tobacco Use Status Never used Tobacco 03/22/23 08:59 e-Cigarette/Vaping Use Never Used 03/22/23 08:59 PHQ-9: PHQ-9 Score PHQ-9: Total score 0 03/22/23 08:59 Depression Screening Interpretation: Negative Thrive Assessment: Date of Thrive Assessment Date Thrive assessed 03/22/23 03/22/23 08:59 Currently or been in a relationship where the following occur: no concerns reported Const General: no acute distress and alert HENMT Ears: TM's normal bilaterally and EAC's normal Throat: Yes posterior oropharynx normal and Yes tonsils normal (no TP congestion) Neck Neck: Yes no lymphadenopathy and Yes supple Resp Auscultation: clear to auscultation bilaterally, no rales and no wheezes Cardio Rate: regular rate Rhythm: regular rhythm Heart sounds: no murmurs GI Palpation (GI): Soft to palpation and nontender Auscultation: normal bowel sounds General: Yes no CVA tenderness Back/Spine/Pelvis Back: no CVA tenderness Skin Rashes: no rashes Extrem General: Yes no clubbing, cyanosis or edema Assessment and Plan Assessment & Plan (1) Benign essential hypertension: Code(s): I10 - Essential (primary) hypertension Plan: Reinforced low-sodium diet - goal is systolic BP of 120 mm or less Continue Lisinopril 2.5 mg QD (2) Pure hypercholesterolemia: Code(s): E78.00 - Pure hypercholesterolemia, unspecified Plan: Reinforced low cholesterol diet Continue Crestor 10 mg QD and Fish Oil capsules 1200 mg 1 capsule daily Will recheck his labs and fasting lipids in 4 months for follow-up (3) Covington's esophagus without dysplasia: Code(s): K22.70 - Covington's esophagus without dysplasia Plan: He had repeat EGD as well as a repeat colonoscopy done with Dr. Spencer last year in April 2022 - findings remain consistent with GERD and no abnormal epithelial changes noted He was advised that he may not need any further EGD from here on unless indicated; recommend repeat colonoscopy in 5 years (2027) Reinforced dietary restrictions similar to those in GERD Continue Omeprazole 40 mg QD - Rx refilled Follow-up with GI as scheduled (4) Impaired fasting glucose: Code(s): R73.01 - Impaired fasting glucose Plan: HgbA1c was normal at 5.7% and 5.5% when checked in the past Reinforced low-calorie diet / exercise as tolerated (5) Vitamin D deficiency: Code(s): E55.9 - Vitamin D deficiency, unspecified Plan: Continue Vitamin D3 2000 units QD (6) Anxiety: Code(s): F41.9 - Anxiety disorder, unspecified Plan: Doing well - is currently on no Rx (7) Depression: Code(s): F32.A - Depression, unspecified Qualifiers: Depression Type: major depressive disorder Major depression recurrence: recurrent Active/Remission status: currently active Major depression episode severity: unspecified Qualified Code(s): F33.9 - Major depressive disorder, recurrent, unspecified Plan: Patient was weaned off Nortriptyline in the past and he has not been on any Rx since - states that he feels well and does not think he needs any Rx at this time Follow-up with Psychiatry (Dr. Fuentes) as needed (8) Overweight (BMI 25.0-29.9): Code(s): E66.3 - Overweight Plan: Reinforced diet/exercise as tolerated/ lose weight Per request, will refer him to optical model maker and tester for dietary counseling Plan Follow up in 4 months Orders: Orders TSH reflex Free T4 4 Months E78.00 - Pure hypercholesterolemia, unspecified UA CC w/rflx Micro + Cult 4 Months R30.0 - Dysuria Hemoglobin A1c 4 Months R73.01 - Impaired fasting glucose Complete Blood Count Auto Diff 4 Months D64.9 - Anemia, unspecified Comprehensive [place]. Panel Fast 4 Months E78.00 - Pure hypercholesterolemia, unspecified Lipid Panel 4 Months E78.00 - Pure hypercholesterolemia, unspecified Vitamin D 25-OH Total 4 Months E55.9 - Vitamin D deficiency, unspecified Referrals Nutrition/Dietitian Referral E78.00 - Pure hypercholesterolemia, unspecified, I10 - Essential (primary) hypertension, R73.01 - Impaired fasting glucose Medications: Changed From omeprazole 40 mg PO DAILY 90 caps 3RF K22.70 - Covington's esophagus without dysplasia To omeprazole 40 mg PO DAILY 90 days 90 caps 3RF K22.70 - Covington's esophagus without dysplasia Coding Level of Care Code Est Pt Level 4 (48585) Diagnoses Benign essential hypertension I10 Pure hypercholesterolemia E78.00 Covington's esophagus without dysplasia K22.70 Impaired fasting glucose R73.01 Vitamin D deficiency E55.9 Anxiety F41.9 Episode of recurrent major depressive disorder, unspecified depression episode severity F33.9 Depression Type: major depressive disorder Major depression recurrence: recurrent Active/Remission status: currently active Major depression episode severity: unspecified Overweight (BMI 25.0-29.9) E66.3
== END 2023-03-22 09:38 | disposition home or self-care (01) ==
PROVIDERS: PCP Internal Medicine; Visit Provider Internal Medicine
DX: I10 Essential (primary) hypertension (principal); F33.9 Major depressive disorder, recurrent, unspecified; E78.00 Pure hypercholesterolemia, unspecified; K22.70 Barrett's esophagus without dysplasia; R73.01 Impaired fasting glucose; E55.9 Vitamin D deficiency, unspecified; F41.9 Anxiety disorder, unspecified; E66.3 Overweight
CPT/HCPCS: 99214

== ENCOUNTER 2023-04-27 08:10 | Outpatient (AMB) | payer BC, SELFPAY ==
[2023-04-27 08:22] VITALS: BP 124/82; PULSE 58; BMI 26.0
--- NOTE | 2023-04-27 08:22 | A.OFFVIS_ITS ---
Intake Vital Signs 04/27/23 08:22 Height 5 ft 5 in Weight 156 lb 8.451 oz BMI 26.0 BP 124/82 Blood Pressure Location Lt brachial Position Sitting Pulse 58 Intake Visit Reasons: 6 month follow up Intake Note: pt its here for his 6 mnth f/up/ pt states that he its doing fine. Social Service Director Required: No Accompanied by: Self / Same As Patient Allergies Penicillins [PCN] Allergy (Mild, Verified 03/22/23 09:13) RASH penicillin V Allergy (Unknown, Verified 03/22/23 09:13) rash Medication List - Last Reconciled 04/27/23 by Abby Lynch NP-C cholecalciferol (vitamin D3) (Vitamin D3) 50 mcg PO DAILY lisinopril 2.5 mg PO DAILY omeprazole 40 mg PO DAILY 90 days rosuvastatin 10 mg PO DAILY HPI 6 month follow up HPI Details Darin is a 58-year-old male past medical history of hypertension, hyperlipidemia, impaired fasting glucose, chest discomfort with cardiac abisai terization showing no significant CAD followed by finding of pericarditis 2022 who presents for follow-up. Today he reports that he has had no issues with chest discomfort at rest or with activity. No symptoms like prior pericarditis. No heart palpitations, lightheadedness, presyncope, syncope, falls. No shortness of breath, PND, orthopnea or edema. Reports good activity tolerance and walks frequently. Taking all meds as directed. Was out with friends a few weeks ago and got a drink at a bar then turned around and everything went black for one second and he continued on his evening. He did not think anything of it until a few days later when he recall the episode thinking it was unusual. He has had no recurrent episodes since then. [facility] Medical History History of pericarditis (~02/2022) History of Covington's esophagus Overweight (BMI 25.0-29.9) Depression Anxiety Vitamin D deficiency GERD without esophagitis Covington's esophagus without dysplasia Pure hypercholesterolemia Benign essential hypertension Impaired fasting glucose Broken wrist Surgical History History of esophagogastroduodenoscopy (EGD) Hx of colonoscopy S/P cardiac cath Family History Mother No problems noted. Father No problems noted. Social History Housing: House Alcohol intake: current Alcohol intake frequency: holidays/special occasions only Patient Tobacco Use Status: Never used Tobacco e-Cigarette/Vaping Use: Never Used Second Hand Smoke Exposure: Yes service: No Current occupational status: employed Current occupational exposures/hazards: No Cognitive needs: No Hearing needs: No Vision needs: Yes Review of Systems Const All systems reviewed & are unremarkable except as noted in HPI and below Denies chills, Denies fatigue, Denies fever(s), Denies frequent falls, Denies weakness, Denies weight gain and Denies weight loss ENT Denies dizziness Card Denies chest pain, Denies leg edema, Denies lightheadedness, Denies palpitations, Denies dyspnea and Denies dyspnea on exertion Resp Denies cough, Denies dyspnea and Denies dyspnea on exertion GI Denies hematochezia Musc Denies abnormal gait, Denies muscle weakness, Denies numbness, Denies radiating pain into limb and Denies tingling Neuro Denies abnormal gait, Denies dizziness, Denies frequent falls, Denies numbness, Denies tingling and Denies weakness Endo Denies fatigue and Denies palpitations Physical Exam Vital Signs: Last Vital Signs Pulse 58 04/27/23 08:22 BP 124/82 04/27/23 08:22 BMI result Body Mass Index 26.0 Const General: cooperative, healthy appearing, comfortable and no acute distress Orientation/consciousness: patient oriented x3 Neck Neck: Yes normal visual inspection and Yes no JVD Carotids: normal carotid upstroke Resp Effort & Inspection: normal respiratory effort Auscultation: clear to auscultation bilaterally, no crackles, no rales, no rhonchi and no wheezes Cardio Jugular venous distension: no JVD Rate: regular rate Rhythm: regular rhythm Heart sounds: S1 normal heart sound present, S2 normal heart sound present, no murmurs and no rubs Neuro General: patient oriented x3 Extrem General: Yes normal to inspection and No no pedal edema Psych Appearance: grossly normal Mental Status: mental status grossly normal Speech and movement: Normal speech and movement present Office Procedures EKG Details: Today, read by me, SB, no acute ST/ T wave abn, rate 58, QTc 388ms [id number], Complete Assessment & Plan Assessment & Plan (1) Pericarditis: Code(s): I31.9 - Disease of pericardium, unspecified Plan: On 02/23/22 he Presented to [facility] [place] with new onset chest discomfort, concerning for ACS. His Troponins were normal however Echo did show EF 55-60% with basal to mid inferior wall hypokinesis, basal inferior akinesis. EKG showed diffuse ST elevations, suggesting pericarditis. He was T[place] [facility] [place] and underwent cardiac cath which showed no significant CAD. He was treated for pericarditis and started on Colchicine and aspirin for 3 months. A repeat limited echocardiogram was done on 04/22/2022 showing normal EF and no evidence of pericardial effusion, basal inferior and basal inferior segments hypokinetic. Today he reports that he has been doing well with no recurrent chest discomfort. He has good activity tolerance. EKG done today showing sinus rhythm with no acute ST or T-wave abnormalities. He will notify this office if he has any recurrent chest discomfort. Cardiology follow up in 1 year, sooner if needed. Pericarditis (2) S/P cardiac cath: Comment: 02/23/22 @ [facility] [place] , LM normal, LAD < 30% stenosis, LCx and RCA minimal irregularities Code(s): Z98.890 - Other specified postprocedural states Plan: As above (3) Benign essential hypertension: Code(s): I10 - Essential (primary) hypertension Plan: Well controlled at this time. No medication changes made. (4) Abnormal echocardiogram findings without diagnosis: Code(s): R93.1 - Abnormal findings on diagnostic imaging of heart and coronary circulation Plan: Echocardiogram with basal inferior and basal cell inferior segments hypokinetic. Cardiac catheterization showing no significant CAD. (5) Alteration in vision: Code(s): H54.7 - Unspecified visual loss Plan: Patient describes an episode a few weeks ago where he was in a bar and he turned around and everything went black for one second then back to normal. He recalls having no concerning symptoms along with it. He says he was drinking alcohol but was not intoxicated. He did not have any presyncope, syncope, falls. He did not think anything of it at the time. A few days later he recall the episode and thought it was unusual. He wanted to bring it to our attention. He has not had any recurrent events. He has never had syncope in the past. He describes his vision as being normal. On examination no carotid bruits noted. EKG shows normal sinus bradycardia, rate 58. He will notify this office if he has any recurrent episodes. At which time a carotid ultrasound and a Holter monitor will be considered. Emergency care if ever needed for symptoms. Plan Time spent on chart review, documentation, interview assess Coding Level of Care Code Est Pt Level 3 (08115) Diagnoses Pericarditis I31.9 S/P cardiac cath Z98.890 Benign essential hypertension I10 Abnormal echocardiogram findings without diagnosis R93.1 Alteration in vision H54.7 CPT Codes EKG - CPT: 45566-[id number], Complete ([id number]) Time Spent (min) 24
== END 2023-04-27 08:46 | disposition home or self-care (01) ==
PROVIDERS: PCP Internal Medicine; Visit Provider Nurse Practitioner Family
DX: I31.9 Disease of pericardium, unspecified (principal); Z98.890 Other specified postprocedural states; I10 Essential (primary) hypertension; R93.1 Abnormal findings on diagnostic imaging of heart and coronary circulation; H54.7 Unspecified visual loss
CPT/HCPCS: 93010; 99213

== ENCOUNTER → 2023-04-27 08:10 | Outpatient (BNVA) | payer BC, SELFPAY | PROVIDERS: PCP Internal Medicine; Visit Provider Nurse Practitioner Family | DX: I31.9 Disease of pericardium, unspecified (principal); I10 Essential (primary) hypertension; R93.1 Abnormal findings on diagnostic imaging of heart and coronary circulation; H54.7 Unspecified visual loss; Z79.82 Long term (current) use of aspirin; Z79.899 Other long term (current) drug therapy | CPT/HCPCS: 93005 ==

== ENCOUNTER 2023-06-22 08:24 | Outpatient (AMB) | payer BC, SELFPAY ==
[2023-06-22 08:35] VITALS: BMI 25.5
--- NOTE | 2023-06-22 08:35 | A.OFFVIS_ITS ---
Intake VS Expanded 06/22/23 08:35 06/22/23 08:48 Height 5 ft 5 in 5 ft 5 in Weight 153 lb 0.013 oz 153 lb BMI 25.5 25.5 Intake Visit Reasons: IFG, Hypertension, Pure hypercholesterolemia Allergies Penicillins [PCN] Allergy (Mild, Verified 03/22/23 09:13) RASH penicillin V Allergy (Unknown, Verified 03/22/23 09:13) rash HPI Nutrition Presentation Details Pt presents for MNT for IFG , HTN, hyperlipidemia Pt reports watching food portion sizes food frequency fish : 0-1/wk ve servings/d milk: 1-2 /d starches> 20 serving/d fruits: in smoothies pastries >2 /day physical activity: active at work ETOH/SMoking--- MVI- not taking CKO-Yayyrwc-Fk.Jeor Equation Height 5 ft 5 in Weight 153 lb Resting Metabolic Rate 1439.90 Calculated Activity Level Mild Activity Calories Needed to Maintain Weight 1979.86 Diagnosis Nutrition problem #1 food nutri know defi As related to (etiology) #1 diagnosis As evidenced by (sign/symptom) #1 abnormal lab values Most Recent Diabetes Results: Cholesterol 160 mg/dL 09/22/22 HDL Cholesterol 46 mg/dL 09/22/22 Triglycerides 74 mg/dL 09/22/22 Creatinine 0.88 mg/dL (0.5-1.4) 09/22/22 Blood Urea Nitrogen 16 mg/dL (9-16) 09/22/22 Sodium 140 mmol/L (135-145) 09/22/22 Potassium 4.1 mmol/L (3.3-5.1) 09/22/22 Chloride 107 mmol/L (96-108) 09/22/22 Carbon Dioxide 28 mmol/L (22-29) 09/22/22 Calcium 9.4 mg/dL (8.4-10.2) 09/22/22 AST 25 U/L (5-37) 09/22/22 ALT 25 U/L (0-40) 09/22/22 Total Protein 7.2 g/dL (6.5-8.0) 09/22/22 Albumin 4.3 g/dL (3.5-5.0) 09/22/22 [facility] Medical History History of pericarditis (~02/2022) History of Covington's esophagus Overweight (BMI 25.0-29.9) Depression Anxiety Vitamin D deficiency GERD without esophagitis Covington's esophagus without dysplasia Pure hypercholesterolemia Benign essential hypertension Impaired fasting glucose Broken wrist Surgical History History of esophagogastroduodenoscopy (EGD) Hx of colonoscopy S/P cardiac cath Family History Mother No problems noted. Father No problems noted. Social History Housing: House Alcohol intake: current Alcohol intake frequency: holidays/special occasions only Patient Tobacco Use Status: Never used Tobacco e-Cigarette/Vaping Use: Never Used Second Hand Smoke Exposure: Yes service: No Current occupational status: employed Current occupational exposures/hazards: No Cognitive needs: No Hearing needs: No Vision needs: Yes Assessment & Plan Assessment & Plan (1) Impaired fasting glucose: Code(s): R73.01 - Impaired fasting glucose Plan: Wt: 69 Kg ( 06/2023 ) Est kcal needs as per MSJ: 2000 (40% carb, 30% protein/fat) Est fluid needs as per 25-30 ml/d: 2100 Est prot per day as per 1 g/kg bw: 69 Recommend fiber intake : 8-10 g per day and gradually increase to 25-28 g per day for women and 35-38 g for men or as tolerated Recommend sodium intake per day : less than 2000 mg Educated patient on: ( R = reviewed V = verbalizes understanding N/R = needs review N/A = not applicable * Food sources of carbohydrate, adequate serving sizes and its role in various health conditions: R V * Differences between complex carbohydrates a simple carbohydrates, role of fiber in diet: R V * Lean protein sources of foods: R V * Differences between types of fats and role in diet (mono on saturated fat fatty acids, saturated fatty acids, trans fats): R basic * Food sources of sodium in salt and healthy modifications for heart health in kidney health: NR * Vitamins and minerals: R * Healthy plate method concept: R V * Physical activity: Benefits a precaution: R * Dietary prevention of Hyperglycemia: R Patient Instructions: Practice mindful eating strategies Work on reducing total carb to 60 g at meal following healthy plate method and 0-30 g as snack Keep hydrated by choosing water with meals/snack or low sugar beverages keep a food record and bring to next f/u for review Coding Level of Care Code Nutr Indiv Intake (86741) Diagnoses Impaired fasting glucose R73.01 Time Spent (min) 30
[2023-06-22 08:48] VITALS: BMI 25.5
== END 2023-06-22 09:12 | disposition home or self-care (01) ==
PROVIDERS: PCP Internal Medicine; Visit Provider Dietitian, Registered
DX: R73.01 Impaired fasting glucose (principal)

== ENCOUNTER → 2023-06-22 08:24 | Outpatient (BNVA) | payer BC, SELFPAY | PROVIDERS: PCP Internal Medicine; Visit Provider Dietitian, Registered | DX: R73.01 Impaired fasting glucose (principal); I10 Essential (primary) hypertension; Z71.3 Dietary counseling and surveillance | CPT/HCPCS: 97802 ==

== ENCOUNTER 2023-08-05 06:14 | Outpatient (REF) | payer BC, SELFPAY ==
[2023-08-05 10:27] LABS: Appearance Urine Turbid; Color Urine Yellow; Glucose Urine UA Negative (Negative); Leukocyte Esterase Urine Negative (Negative); Nitrite Urine Negative (Negative); Specific Gravity - Urine >= 1.030 (1.005-1.025); Urine Blood Negative (Negative); Urine Ketones Trace mg/dL (Negative); Urine Protein Negative (Neg-Trace)
[2023-08-05 10:28] LABS: MANUAL DIFF FLAG NO
[2023-08-05 10:34] LABS: Basophils Percent Auto 0.6 % (0-2); Eosinophils Absolute Auto 0.1 X10*3/uL (0.0-0.4); Eosinophils Percent Auto 2.2 % (0-4); Hematocrit 41.2 % (42.0-52.0); Hemoglobin 13.7 g/dl (14.0-18.0); Imm Gran Abs Auto 0.01 X10*3/uL (0.00-0.03); Imm Gran Pct Auto 0.2 % (0.0-0.4); Lymphocytes Absolute Auto 1.9 X10*3/uL (1.2-4.9); Lymphocytes Percent Auto 36.2 % (20-40); Mean Corpuscular HGB Conc 33.3 g/dl (31.0-36.0); Mean Corpuscular Hemoglobin 29.3 pg (27.0-33.0); Mean Platelet Volume 10.9 fL (9.4-12.4); Monocytes Absolute Auto 0.4 X10*3/uL (0.1-1.2); Monocytes Percent Auto 7.4 % (2-11); Neutrophils Absolute Auto 2.7 x10*3/uL (2.0-8.3); Neutrophils Percent Auto 53.4 % (45-73); Platelet Count 258 X10*3/uL (160-400); Red Blood Count 4.68 X10*6/uL (4.60-5.80); Red Cell Distribution Width 12.5 % (11.0-16.0); White Blood Count 5.1 X10*3/uL (4.8-10.8)
[2023-08-05 10:47] LABS: Alanine Aminotransferase 23 U/L (0-40); Albumin Level 4.4 g/dL (3.5-5.0); Alkaline Phosphatase 83 U/L (39-117); Anion Gap 11 (12-20); Aspartate Amino Transferase 28 U/L (5-37); Bilirubin Total 0.9 mg/dL (0.0-1.0); Blood Urea Nitrogen 18 mg/dL (9-16); Calcium 8.9 mg/dL (8.4-10.2); Carbon Dioxide 27 mmol/L (22-29); Chloride 108 mmol/L (96-108); Cholesterol 131 mg/dL (<200); Estimated Average Glucose 111 mg/dL; Estimated Glomerular Filt Rate > 60; Glucose Fasting 93 mg/dL (60-99); HDL Cholesterol 44 mg/dL (>40); Hemoglobin A1c % 5.5 % (<6.0); LDL Cholesterol Calculated 77 mg/dL (<100); Potassium 3.8 mmol/L (3.3-5.1); Sodium 142 mmol/L (135-145); Total Protein 7.2 g/dL (6.5-8.0); Triglycerides 50 mg/dL (<150)
[2023-08-05 11:04] LABS: TSH reflex Free T4 2.25 uIU/mL (0.32-4.0); Vitamin D 25-OH Total 42.9 ng/mL (>30)
== END 2023-08-05 06:15 | disposition home or self-care (01) ==
LOC: HO.HMGCLDS 06:14
PROVIDERS: PCP Internal Medicine; Visit Provider Internal Medicine
DX: E78.00 Pure hypercholesterolemia, unspecified (principal); R30.0 Dysuria; R73.01 Impaired fasting glucose; D64.9 Anemia, unspecified; E55.9 Vitamin D deficiency, unspecified
CPT/HCPCS: 36415; 80053; 80061; 81003; 82306; 83036; 84443; 85025

== ENCOUNTER 2023-08-09 16:34 | Outpatient (AMB) | payer BC, SELFPAY ==
[2023-08-09 16:35] VITALS: BP 90/68; PULSE 50; O2SAT 96; BMI 25.0
--- NOTE | 2023-08-09 16:35 | MHC.PC.OV ---
Vital Signs 08/09/23 16:35 Height 5 ft 5 in Weight 150 lb BMI 25.0 BP 90/68 Blood Pressure Location Lt brachial Position Sitting Pulse 50 Pulse Source Pulse Oximeter Pulse Oximetry (%) 96 Oxygen Delivery Method Room Air Intake Visit Reasons: HTN, IFG, hyperlipidemia, gastritis Group Practice Pediatrician Required: No Allergies Penicillins [PCN] Allergy (Mild, Verified 08/09/23 17:04) RASH penicillin V Allergy (Unknown, Verified 08/09/23 17:04) rash Medication List - Last Reconciled 08/09/23 by Robbie Dudley MD cholecalciferol (vitamin D3) (Vitamin D3) 50 mcg PO DAILY lisinopril 2.5 mg PO DAILY omeprazole 40 mg PO DAILY 90 days rosuvastatin 10 mg PO DAILY Tobacco use date assessed: 08/09/23 Dental Screening Dental Screen Date: 03/22/23 HPI HTN, IFG, hyperlipidemia, gastritis HPI Details Patient comes in today for his follow up visit States that he feels okay He denies any headaches or dizziness Denies any chest pains, no SOB No nausea/vomiting, no abdominal pain No change in bowel habits noted Needs his Omeprazole Rx refilled He had his follow up labs done a few days ago - to discuss his results [facility] Medical History History of pericarditis (~02/2022) History of Covington's esophagus Overweight (BMI 25.0-29.9) Depression Anxiety Vitamin D deficiency GERD without esophagitis Covington's esophagus without dysplasia Pure hypercholesterolemia Benign essential hypertension Impaired fasting glucose Broken wrist Surgical History History of esophagogastroduodenoscopy (EGD) Hx of colonoscopy S/P cardiac cath Family History Mother No problems noted. Father No problems noted. Social History Housing: House Alcohol intake: current Alcohol intake frequency: holidays/special occasions only Patient Tobacco Use Status: Never used Tobacco e-Cigarette/Vaping Use: Never Used Second Hand Smoke Exposure: Yes service: No Current occupational status: employed Current occupational exposures/hazards: No Cognitive needs: No Hearing needs: No Vision needs: Yes Questionnaire Thrive Questionnaire Date Thrive assessed: 03/22/23 I am a: Patient What is your living situation today?: I have a steady place to live Within the past 12 months, did the food you bought not last and you didn't have the money to get more?: Never true Within the past 12 months, did you worry whether your food would run out before you got money to buy more?: Never true Do you have trouble paying for medicines?: No Do you have trouble getting transportation to medical appointments?: No Do you have trouble paying your heating and electricity bill?: No Do you have trouble taking care of your child, family member or friend?: No Do you have trouble with day-to-day activities such as bathing, preparing meals, shopping, managing finances, etc.?: No Are you currently unemployed and looking for a job?: No Are you interested in more education?: No Please select the resources that you would like help with: None Currently or been in a relationship where the following occur: no concerns reported THRIVE Score: 0 AUDIT C Alcohol Use Questionnaire (AUDIT-C) 1. How often do you have a drink containing alcohol?: Monthly or less 2. How many drinks containing alcohol do you have on a typical day when you are drinking?: 1 or 2 3. How often do you have six or more drinks on one occasion?: Never Total Score: 1 Score Reviewed/Action Taken: Yes PADMINI-7 AMB Questionnaire PADMINI-7 Date PADMINI - 7 assessed: 03/22/23 Source: Developed by Drs. Bj Goldberg, Cheri Adorno, Imer Rivers and colleagues, with an educational emerald from [employer]. Review of Systems Const Denies chills, Denies fatigue, Denies fever(s) and Denies headache(s) ENT Denies dysphagia, Denies dizziness, Denies otalgia, Denies headache(s), Denies neck pain, Denies odynophagia and Denies sore throat Card Denies chest pain, Denies palpitations and Denies dyspnea Resp Denies cough and Denies dyspnea GI Denies abdominal pain, Denies constipation, Denies dysphagia, Denies heartburn, Denies diarrhea, Denies nausea, Denies odynophagia and Denies vomiting Denies dysuria, Denies nocturia and Denies urinary frequency Musc Denies back pain and Denies neck pain Skin/Breast Denies rash Neuro Denies dizziness and Denies headache(s) Endo Denies fatigue and Denies palpitations Physical exam (Primary Care) Vital Signs: Last Vital Signs Pulse 50 08/09/23 16:35 BP 90/68 08/09/23 16:35 Pulse Ox 96 08/09/23 16:35 Oxygen Delivery Method Room Air 08/09/23 16:35 BMI result Body Mass Index 25.0 Tobacco/Smoking Status: Tobacco use Status Tobacco use date assessed 08/09/23 08/09/23 16:36 Patient Tobacco Use Status Never used Tobacco 08/09/23 16:36 e-Cigarette/Vaping Use Never Used 08/09/23 16:36 Thrive Assessment: Date of Thrive Assessment Date Thrive assessed 03/22/23 08/09/23 16:36 Currently or been in a relationship where the following occur: no concerns reported Const General: no acute distress and alert HENMT Ears: TM's normal bilaterally and EAC's normal Throat: Yes posterior oropharynx normal and Yes tonsils normal (no TP congestion) Neck Neck: Yes no lymphadenopathy and Yes supple Thyroid: Thyroid normal Resp Auscultation: clear to auscultation bilaterally, no rales and no wheezes Cardio Rate: regular rate Rhythm: regular rhythm Heart sounds: no murmurs GI Palpation (GI): Soft to palpation and nontender Auscultation: normal bowel sounds General: Yes no CVA tenderness Back/Spine/Pelvis Back: no CVA tenderness Skin Rashes: no rashes Extrem General: Yes no clubbing, cyanosis or edema Results Reviewed Results Reviewed: Laboratory Tests 08/05/23 06:17 WBC 5.1 Hgb 13.7 L Hct 41.2 L Plt Count 258 Sodium 142 Potassium 3.8 Creatinine 0.86 Estimated GFR > 60 Fasting Glucose 93 Hemoglobin A1c % 5.5 Calcium 8.9 AST 28 ALT 23 Triglycerides 50 Cholesterol 131 LDL Cholesterol, Calc 77 HDL Cholesterol 44 25-OH Vitamin D Total 42.9 TSH 2.25 Ur Specific [place] >= 1.030 H Urine Protein Negative Urine Glucose (UA) Negative Urine Blood Negative Urine Nitrite Negative Ur Leukocyte Esterase Negative Assessment and Plan Assessment & Plan (1) Benign essential hypertension: Code(s): I10 - Essential (primary) hypertension Plan: Reinforced low-sodium diet - goal is systolic BP of 120 mm or less Continue Lisinopril 2.5 mg QD (2) Pure hypercholesterolemia: Code(s): E78.00 - Pure hypercholesterolemia, unspecified Plan: Results of his labs done a few days ago reviewed and discussed with patient - his cholesterol levels have improved slightly from previous Reinforced low cholesterol diet States that the human resources psychologist was also able to help him a lot with improving his diet lately and he has also managed to lose about 10 pounds since his last visit Continue Crestor 10 mg QD and Fish Oil capsules 1200 mg 1 capsule daily Will recheck his labs and fasting lipids in 4 months for follow-up (3) Covington's esophagus without dysplasia: Code(s): K22.70 - Covington's esophagus without dysplasia Plan: He had repeat EGD as well as a repeat colonoscopy done with Dr. Spencer last year in April 2022 - findings remain consistent with GERD and no abnormal epithelial changes noted He was advised that he may not need any further EGD from here on unless indicated; recommend repeat colonoscopy in 5 years (2027) Reinforced dietary restrictions similar to those in GERD Continue Omeprazole 40 mg QD - Rx refilled Follow-up with GI as scheduled (4) Impaired fasting glucose: Code(s): R73.01 - Impaired fasting glucose Plan: HgbA1c was normal at 5.7% and 5.5% when checked in the past; was again normal at 5.5% on his recent labs Reinforced low-calorie diet / exercise as tolerated (5) Pericarditis: Code(s): I31.9 - Disease of pericardium, unspecified Qualifiers: Pericarditis type: unspecified type Chronicity: unspecified Qualified Code(s): I31.9 - Disease of pericardium, unspecified Plan: S/P Tx with Colchicine and Aspirin x 3 months Patient states that he has not had any recurrence of this since February 2022 A repeat limited echocardiogram done in April 2022 revealed normal EF with no evidence of pericardial effusion; the basal inferior and basal inferolateral segments are hypokinetic Follow up with cardiology as scheduled - sees cardiology just once a year now (6) Vitamin D deficiency: Code(s): E55.9 - Vitamin D deficiency, unspecified Plan: Continue Vitamin D3 2000 units QD (7) Anxiety: Code(s): F41.9 - Anxiety disorder, unspecified Plan: Doing well - is currently on no Rx (8) Depression: Code(s): F32.A - Depression, unspecified Qualifiers: Depression Type: major depressive disorder Major depression recurrence: recurrent Active/Remission status: currently active Major depression episode severity: unspecified Qualified Code(s): F33.9 - Major depressive disorder, recurrent, unspecified Plan: Patient was weaned off Nortriptyline in the past and he has not been on any Rx since - states that he feels well and does not think he needs any Rx at this time Follow-up with Psychiatry (Dr. Fuentes) as needed Plan Follow up in 4 months Orders: Orders Lipid Panel 4 Months E78.00 - Pure hypercholesterolemia, unspecified Comprehensive [place]. Panel Fast 4 Months E78.00 - Pure hypercholesterolemia, unspecified Complete Blood Count Auto Diff 4 Months D64.9 - Anemia, unspecified Medications: Refilled omeprazole 40 mg PO DAILY 90 days 90 caps 3RF K22.70 - Covington's esophagus without dysplasia omeprazole 40 mg PO DAILY 90 days 90 caps 3RF K22.70 - Covington's esophagus without dysplasia Coding Level of Care Code Est Pt Level 4 (91479) Diagnoses Benign essential hypertension I10 Pure hypercholesterolemia E78.00 Covington's esophagus without dysplasia K22.70 Impaired fasting glucose R73.01 Pericarditis, unspecified chronicity, unspecified type I31.9 Pericarditis type: unspecified type Chronicity: unspecified Vitamin D deficiency E55.9 Anxiety F41.9 Episode of recurrent major depressive disorder, unspecified depression episode severity F33.9 Depression Type: major depressive disorder Major depression recurrence: recurrent Active/Remission status: currently active Major depression episode severity: unspecified
== END 2023-08-09 17:21 | disposition home or self-care (01) ==
PROVIDERS: PCP Internal Medicine; Visit Provider Internal Medicine
DX: I10 Essential (primary) hypertension (principal); E78.00 Pure hypercholesterolemia, unspecified; K22.70 Barrett's esophagus without dysplasia; F33.9 Major depressive disorder, recurrent, unspecified; R73.01 Impaired fasting glucose; I31.9 Disease of pericardium, unspecified; E55.9 Vitamin D deficiency, unspecified; F41.9 Anxiety disorder, unspecified
CPT/HCPCS: 99214

== ENCOUNTER 2023-12-07 06:32 | Outpatient (REF) | payer BC, SELFPAY ==
[2023-12-07 10:11] LABS: MANUAL DIFF FLAG NO
[2023-12-07 10:20] LABS: Basophils Percent Auto 0.6 % (0-2); Eosinophils Absolute Auto 0.1 X10*3/uL (0.0-0.4); Eosinophils Percent Auto 2.3 % (0-4); Hematocrit 40.5 % (42.0-52.0); Hemoglobin 13.6 g/dl (14.0-18.0); Imm Gran Abs Auto 0.01 X10*3/uL (0.00-0.03); Imm Gran Pct Auto 0.2 % (0.0-0.4); Lymphocytes Absolute Auto 2.1 X10*3/uL (1.2-4.9); Lymphocytes Percent Auto 43.5 % (20-40); Mean Corpuscular HGB Conc 33.6 g/dl (31.0-36.0); Mean Corpuscular Volume 89.2 fL (80.0-98.0); Mean Platelet Volume 10.5 fL (9.4-12.4); Monocytes Absolute Auto 0.5 X10*3/uL (0.1-1.2); Monocytes Percent Auto 9.5 % (2-11); Neutrophils Absolute Auto 2.1 x10*3/uL (2.0-8.3); Neutrophils Percent Auto 43.9 % (45-73); Platelet Count 251 X10*3/uL (160-400); Red Blood Count 4.54 X10*6/uL (4.60-5.80); Red Cell Distribution Width 12.3 % (11.0-16.0); White Blood Count 4.8 X10*3/uL (4.8-10.8)
[2023-12-07 10:50] LABS: Alanine Aminotransferase 26 U/L (0-40); Albumin Level 4.5 g/dL (3.5-5.0); Alkaline Phosphatase 76 U/L (39-117); Anion Gap 11 (12-20); Aspartate Amino Transferase 33 U/L (5-37); Blood Urea Nitrogen 19 mg/dL (9-16); Calcium 9.7 mg/dL (8.4-10.2); Carbon Dioxide 28 mmol/L (22-29); Chloride 107 mmol/L (96-108); Cholesterol 146 mg/dL (<200); Estimated Glomerular Filt Rate > 60; Glucose Fasting 90 mg/dL (60-99); HDL Cholesterol 44 mg/dL (>40); LDL Cholesterol Calculated 93 mg/dL (<100); Potassium 3.9 mmol/L (3.3-5.1); Sodium 142 mmol/L (135-145); Total Protein 7.2 g/dL (6.5-8.0); Triglycerides 47 mg/dL (<150)
== END 2023-12-07 06:33 | disposition home or self-care (01) ==
LOC: HO.HMGCLDS 06:32
PROVIDERS: PCP Internal Medicine; Visit Provider Internal Medicine
DX: E78.00 Pure hypercholesterolemia, unspecified (principal); D64.9 Anemia, unspecified
CPT/HCPCS: 36415; 80053; 80061; 85025

== ENCOUNTER 2023-12-13 16:52 | Outpatient (AMB) | payer BC, SELFPAY ==
[2023-12-13 17:16] VITALS: BP 116/80; PULSE 54; O2SAT 97; BMI 25.1
--- NOTE | 2023-12-13 17:16 | MHC.PC.OV ---
Vital Signs 12/13/23 17:16 Height 5 ft 5 in Weight 151 lb 2 oz BMI 25.1 BP 116/80 Blood Pressure Location Lt brachial Position Sitting Pulse 54 Pulse Source Pulse Oximeter Pulse Oximetry (%) 97 Oxygen Delivery Method Room Air Intake Visit Reasons: 4 month f/u Hairspring Setter Required: No Accompanied by: Self / Same As Patient Allergies Penicillins [PCN] Allergy (Mild, Verified 12/13/23 17:46) RASH penicillin V Allergy (Unknown, Verified 12/13/23 17:46) rash Medication List - Last Reconciled 12/13/23 by Robbie Dudley MD cholecalciferol (vitamin D3) (Vitamin D3) 50 mcg PO DAILY lisinopril 2.5 mg PO DAILY omeprazole 40 mg PO DAILY 90 days rosuvastatin 10 mg PO DAILY Tobacco use date assessed: 08/09/23 Dental Screening Dental Screen Date: 03/22/23 HPI 4 month f/u HPI Details Patient comes in today for his follow up visit States that he has been burping a lot more than usual over the past couple of weeks, sometimes constantly Notes that he has also been feeling more constipated lately and he feels bloated often States that he has tried taking some OTC Gas-X recently with no relief States that he has not changed his diet recently He denies any nausea or vomiting; denies any abdominal pain He denies any headaches or dizziness Denies any chest pains, no shortness of breath noted He had his follow-up labs done last week - to discuss his results [facility] Medical History (Updated 12/14/23 @ 05:47 by Robbie Dudley MD) Pericarditis History of pericarditis (~02/2022) History of Covington's esophagus Overweight (BMI 25.0-29.9) Depression Anxiety Vitamin D deficiency GERD without esophagitis Covington's esophagus without dysplasia Pure hypercholesterolemia Benign essential hypertension Impaired fasting glucose Broken wrist Surgical History (Updated 12/14/23 @ 05:23 by Robbie Dudley MD) History of esophagogastroduodenoscopy (EGD) Hx of colonoscopy S/P cardiac cath Family History Mother No problems noted. Father No problems noted. Social History Housing: House Alcohol intake: current Alcohol intake frequency: holidays/special occasions only Patient Tobacco Use Status: Never used Tobacco e-Cigarette/Vaping Use: Never Used Second Hand Smoke Exposure: Yes service: No Current occupational status: employed Current occupational exposures/hazards: No Cognitive needs: No Hearing needs: No Vision needs: Yes Questionnaire Thrive Questionnaire Date Thrive assessed: 03/22/23 AUDIT C Alcohol Use Questionnaire (AUDIT-C) 2. How many drinks containing alcohol do you have on a typical day when you are drinking?: 1 or 2 3. How often do you have six or more drinks on one occasion?: Monthly Total Score: 2 PADMINI-7 AMB Questionnaire PADMINI-7 Date PADMINI - 7 assessed: 03/22/23 Source: Developed by Drs. Bj Goldberg, Cheri Adorno, Imer Rivers and colleagues, with an educational emerald from [employer]. Review of Systems Const Denies chills, Denies fatigue, Denies fever(s) and Denies headache(s) ENT Denies dysphagia, Denies dizziness, Denies otalgia, Denies headache(s), Denies neck pain, Denies odynophagia and Denies sore throat Card Denies chest pain, Denies palpitations and Denies dyspnea Resp Denies chest congestion, Denies cough and Denies dyspnea GI Denies abdominal pain, Reports belching (frequently), Reports bloating, Reports constipation (increased lately), Denies dysphagia, Denies heartburn, Denies diarrhea, Denies nausea, Denies odynophagia and Denies vomiting Denies dysuria, Denies nocturia and Denies urinary frequency Musc Denies back pain and Denies neck pain Skin/Breast Denies rash Neuro Denies dizziness and Denies headache(s) Endo Denies fatigue and Denies palpitations Physical exam (Primary Care) Vital Signs: Last Vital Signs Pulse 54 12/13/23 17:16 BP 116/80 12/13/23 17:16 Pulse Ox 97 12/13/23 17:16 Oxygen Delivery Method Room Air 12/13/23 17:16 BMI result Body Mass Index 25.1 Tobacco/Smoking Status: Tobacco use Status Tobacco use date assessed 08/09/23 12/13/23 17:17 Patient Tobacco Use Status Never used Tobacco 12/13/23 17:17 e-Cigarette/Vaping Use Never Used 12/13/23 17:17 Thrive Assessment: Date of Thrive Assessment Date Thrive assessed 03/22/23 12/13/23 17:17 Const General: no acute distress and alert HENMT Ears: TM's normal bilaterally and EAC's normal Throat: Yes posterior oropharynx normal and Yes tonsils normal (no TP congestion) Neck Neck: Yes no lymphadenopathy and Yes supple Thyroid: Thyroid normal Resp Auscultation: clear to auscultation bilaterally, no rales and no wheezes Cardio Rate: regular rate Rhythm: regular rhythm Heart sounds: no murmurs GI Palpation (GI): Soft to palpation and nontender Auscultation: normal bowel sounds General: Yes no CVA tenderness Back/Spine/Pelvis Back: no CVA tenderness Skin Rashes: no rashes Extrem General: Yes no clubbing, cyanosis or edema Office Procedures Flu Questionnaire Does the patient have a severe egg allergy?: No Immunizations Fluarix Triv [id number] (PF) 45 mcg (15 mcg x 3)/0.5 mL IM syringe Performing Provider: Robbie Dudley MD [facility] Documented (not given) by: JACK Hernandez on 12/13/23 17:18 Reason Not Given: Patient Refused Results Reviewed Results Reviewed: Laboratory Tests 12/07/23 06:46 WBC 4.8 Hgb 13.6 L Hct 40.5 L Plt Count 251 Sodium 142 Potassium 3.9 Creatinine 0.93 Estimated GFR > 60 Fasting Glucose 90 Calcium 9.7 D AST 33 ALT 26 Triglycerides 47 Cholesterol 146 LDL Cholesterol, Calc 93 HDL Cholesterol 44 Coding Level of Care Code Est Pt Level 4 (00454) Diagnoses Benign essential hypertension I10 Pure hypercholesterolemia E78.00 Covington's esophagus without dysplasia K22.70 Impaired fasting glucose R73.01 History of pericarditis Z86.79 Vitamin D deficiency E55.9 Constipation, unspecified constipation type K59.00 Constipation type: unspecified constipation type Anxiety F41.9 Episode of recurrent major depressive disorder, unspecified depression episode severity F33.9 Depression Type: major depressive disorder Major depression recurrence: recurrent Active/Remission status: currently active Major depression episode severity: unspecified Assessment & Plan Assessment & Plan (1) Benign essential hypertension: Code(s): I10 - Essential (primary) hypertension Category: Medical Plan: Reinforced low-sodium diet - goal is systolic BP of 120 mm or less Continue Lisinopril 2.5 mg QD (2) Pure hypercholesterolemia: Code(s): E78.00 - Pure hypercholesterolemia, unspecified Category: Medical Plan: Results of his labs done last week reviewed and discussed with patient Reinforced low cholesterol diet Continue Rosuvastatin 10 mg QD and Fish Oil capsules 1200 mg 1 capsule daily Will recheck his labs and fasting lipids in 4 months for follow-up (3) Covington's esophagus without dysplasia: Comment: diagnosed in 2008 - subsequent EGDs every 3 years have been negative, most recently on 05/11/2022 Code(s): K22.70 - Covington's esophagus without dysplasia Category: Medical Plan: He had a repeat EGD as well as a repeat colonoscopy done with Dr. Spencer last year in April 2022 - findings remain consistent with GERD and no abnormal epithelial changes noted He was advised that he may not need any further EGD from here on unless indicated; recommend repeat colonoscopy in 5 years (2027) due to tubular adenomas Reinforced dietary restrictions similar to those in GERD Continue Omeprazole 40 mg QD - Rx refilled Follow-up with GI as schedule (4) Impaired fasting glucose: Code(s): R73.01 - Impaired fasting glucose Category: Medical Plan: His FBS was normal at 90 mg/dl on his recent labs HgbA1c was normal at 5.7% and 5.5% when checked in the past Reinforced low-calorie diet / exercise as tolerated (5) History of pericarditis: Onset Date: ~02/2022 Code(s): Z86.79 - Personal history of other diseases of the circulatory system Category: Medical Plan: S/P Tx with Colchicine and Aspirin x 3 months Patient states that he has not had any recurrence of this since February 2022 A repeat limited echocardiogram done in April 2022 revealed normal EF with no evidence of pericardial effusion; the basal inferior and basal inferolateral segments are hypokinetic Follow up with cardiology as scheduled - sees cardiology just once a year now (6) Vitamin D deficiency: Code(s): E55.9 - Vitamin D deficiency, unspecified Category: Medical Plan: Continue Vitamin D3 2000 units QD (7) Constipation: Code(s): K59.00 - Constipation, unspecified Category: Medical Qualifiers: Constipation type: unspecified constipation type Qualified Code(s): K59.00 - Constipation, unspecified Plan: Patient reports experiencing increased constipation and bloating recently This is likely to main reason for his recent increased abdominal gas and frequent belching Will have him start taking some Senna 8.6 mg 1 to 2 tablets QD PRN for now He is also encouraged to increase his oral fluids and dietary fiber intake He is advised to call if he does not experience any significant improvement of his constipation and frequent belching over the next couple of weeks (8) Anxiety: Code(s): F41.9 - Anxiety disorder, unspecified Category: Medical Plan: Patient states that he has been doing well with his anxiety so far and is currently on no Rx for his anxiety (9) Depression: Code(s): F32.A - Depression, unspecified Category: Medical Qualifiers: Depression Type: major depressive disorder Major depression recurrence: recurrent Active/Remission status: currently active Major depression episode severity: unspecified Qualified Code(s): F33.9 - Major depressive disorder, recurrent, unspecified Plan: Patient was weaned off Nortriptyline in the past and he has not been on any Rx since - states that he feels well and does not think he needs any Rx at this time Follow-up with Psychiatry (Dr. Fuentes) as needed Plan Follow up in 4 months Orders: Orders Lipid Panel 4 Months E78.00 - Pure hypercholesterolemia, unspecified Influenza [id number] Immunization 12/13/23 Z23 - Encounter for immunization Comprehensive [place]. Panel Fast 4 Months E78.00 - Pure hypercholesterolemia, unspecified Medications: Refilled omeprazole 40 mg PO DAILY 90 days 90 caps 3RF K22.70 - Covington's esophagus without dysplasia
== END 2023-12-13 17:53 | disposition home or self-care (01) ==
LOC: HO.HMCH 16:53
PROVIDERS: PCP Internal Medicine; Visit Provider Internal Medicine
DX: I10 Essential (primary) hypertension (principal); F33.9 Major depressive disorder, recurrent, unspecified; E78.00 Pure hypercholesterolemia, unspecified; K22.70 Barrett's esophagus without dysplasia; R73.01 Impaired fasting glucose; Z86.79 Personal history of other diseases of the circulatory system; E55.9 Vitamin D deficiency, unspecified; K59.00 Constipation, unspecified; F41.9 Anxiety disorder, unspecified

== ENCOUNTER → 2023-12-13 16:52 | Outpatient (BNVA) | payer BC, SELFPAY | PROVIDERS: PCP Internal Medicine; Visit Provider Internal Medicine | DX: I10 Essential (primary) hypertension (principal); E78.00 Pure hypercholesterolemia, unspecified; K22.70 Barrett's esophagus without dysplasia; R73.01 Impaired fasting glucose; E55.9 Vitamin D deficiency, unspecified; K59.00 Constipation, unspecified; F41.9 Anxiety disorder, unspecified; F33.9 Major depressive disorder, recurrent, unspecified; Z86.79 Personal history of other diseases of the circulatory system; Z79.899 Other long term (current) drug therapy; Z28.21 Immunization not carried out because of patient refusal | CPT/HCPCS: 90471 ==

== ENCOUNTER 2024-04-04 06:22 | Outpatient (REF) | payer BC, SELFPAY ==
--- OUTSIDE RECORDS SUMMARY | 2024-04-04 06:25 | XMS_ITS ---
Author Organization [facility] Address [address] [place] [address] Care Team Providers Care Rehabilitation Team Lead Name Role Phone Luis Enrique VIVAR, [place] Primary Care Provider UnaKaushal Ruiz Unavailable [phone] Allergies Allergen (clinical drug ingredient) Drug/Non Drug Allergy documented on EMR Reaction Allergy Type Onset Date Status Penicillin rash Drug Allergy Active REASON FOR VISIT Foot pain Medications Medication SIG (Take, Route, Frequency, Duration) Notes Start Date End Date Status Lisinopril 2.5 MG 1 tablet Orally Once a day Active Multi Vitamin Active Vitamin D Active busPIRone HCl Unknow n Fish Oil Unknown Rosuvastatin Calcium 10 MG 1 tablet Oral ly Once a day Active Nortriptyline HCl 10 MG 1 capsule Orally Three times a day for 30 day(s) Unknown Vitamin D3 5000 UNIT/ML 0.25 ml Orally O nce a day for 30 day(s) Unknown NexIUM 40 MG as directed Orally Unknown Crestor 10 MG 1 tablet Orally Once a day for 30 day(s) Unknown Omeprazole 40 MG 1 capsule 30 minutes before morning meal Orally Once a day Active Social History Tobacco Use: Social History Observation Description Date Details (start date - stop date) Former Smoker NA - NA Tobacco Use/Smoking Question Answer Notes Are you a: former smoker Additional Findings: Tobacco Non-User Current no n-smoker Alcohol Screen Question Answer Notes Did you have a drink containing alcohol in the p ast year? Yes Points 0 Interpretation Negative Tobacco use other than smoking: Question Answer Notes Are you an other tobacco user? No Vital Signs Height 5ft 4in in 06/30/2023 Weight 153 lbs 06/30/2023 BMI 26.26 kg/m2 06/30/2023 Encounters Encounter Location Date Provider Diagnosis [facility] [address] [place] [address] 06/30/2023 Kaushal Santana Plantar fascial fibromatosis M72.2 ; Pain in left foot M79.672 and Pain in right foot M79.671 Assessments Encounter Date Diagnosis (ICD Code) Assessment Notes Treatment Notes Treatment Clinical Notes Section Notes 06/30/2023 Plantar fascial fibromatosis (ICD-10 - M72.2) 06/30/2023 Pain in left foot (ICD-10 - M79.672) 06/30/2023 Pain in right foot (ICD-10 - M79.671) Plan Of Treatment Pending Test Test Name Order Date X ray : Foot, left 3V 06/30/2023 X ray : Foot, right 3V 06/30/2023 Next Appt Details Follow Up: prn, Reason: Progress Notes * Darin RICO CDOB:1965 (58 yo M)Acc No.[id number]:06/30/2023 Progress Notes Patient:?Darin Rico C Provider:?Kaushal Santana DPM :1965???Age:58 Y???Sex:Male Antonio e:06/30/2023 Address:[address] [place], [place] [address] Pcp:Robbie Dudley MD Subjective: * Chief Complaints: * ???Foot pain * HPI: ???Foot Pain:?Nature:?aching.?Location?B/L, Forefoot, Midfoot, Top, Bottom.?Duration:?several months.?Onset/Cause:?unknown.?Course:?worse.?Aggrevated:?any pressure, standing, walking.?Treatments:?innersoles.?Quality/Severity?5, scale 1-10 on a bad day, 1, scale 1-10--good day.? * ROS:?General/Constitutional:?Nausea?denies,?denies.?Vomiting?denies,?denies.?Hunger Thirst?denies,?denies.?Loss appetite?denies,?denies.?Chills?denies,?denies.?Fatigue?denies,?denies.?Fever?de nies, denies.?Night Sweats?denies,?denies.?Unexplained weight loss?denies,?denies.?Ophthalmologic:?Blurred vision?denies,?denies.?Red eye?denies,?denies.?HEENTM:?Dentures?denies,?denies.?Dizziness?denies,?denies.?Glasses/contacts?denies ,?denies.?Retinopathy?denies,?denies.?Blurred/double vision?denies,?denies.?TMJ?denies,?denies.?Discharge/drainage?denies,?denies.?Im plants?denies,?denies.?Hard of hearing ?denies,?denies.?Difficulty chewing/swallowing/speaking?denies,?denies.?Nose bleeds?denies,?denies.?Sore mouth?denies,?denies.?Swollen glands?denies,?denies.?Respiratory:?On Oxygen?denies,?denies.?Pneumonia/pleurisy?denies,?denies.?Bronchitis?denies,?den ies.?Emphysema?denies,?denies.?Coughing?denies,?denies.?Cough blood?denies,?denies.?Shortness of breath?denies,?denies.?Wheezing?denies,?denies.?Cardiovascular:?Pacemaker?denies,?denies.?MVP?denies,?denies.?WPW?denies,?denies.?CHF?lea es,?denies.?Heart attack?denies,?denies.?Septal defect?denies,?denies.?Rapid beat?denies,?denies.?Chest pain ?denies,?denies.?Atrial Fib.?denies,?denies.?Murmur/Palpitations?denies,?denies.?Gastrointestinal:?Hemorrhoids?denies,?denies.?Stomach/Abdominal pain?denies,?denies.?Dark blood stool?denies,?denies.?Irritable bowel ?denies,?denies.?Constipation?denies,?denies.?Diarrhea?denies,?denies.?Vomiting? denies,?denies.?Hematology:?Swelling?denies,?denies.?Bruising?denies,?denies.?Bleeding problem?denies,?denies.?Genitourinary:?Blood urine?denies,?denies.?Frequent/Painfu/urination/bladder control?denies,?denies.?Kidney stones?denies,?denies.?Infection (UTI)?denies,?denies.?Nephropathy?denies,?denies.?Musculoskeletal:?Hammertoes?denies,?denies.?Bunions?denies,?denies.?Scoliosis/kyphosis?lea es,?denies.?Muscle cramps / walking?denies,?denies.?Generalized aches and pains?denies,?denies.?Weakness?denies,?denies.?Integ.:?Nagel?denies,?denies.?Scars?denies,?denies.?Corns/calluses?admits,?admits. ?Ingrown nails?denies,?denies.?Painful nails?denies,?denies.?Rashes?denies,?denies.?Neurologic:?Difficulty sleeping?denies,?denies.?Bipolar?denies,?denies.?Brain disorder?denies,?denies.?Balance trouble?denies,?denies.?Confusion?denies,?denies.?Fainting/blackouts?denies,?den ies.?Headache?denies,?denies.?Tremors?denies,?denies.? * Medical History:? * Surgical History:?wrist surg maci 08/1999 * Hospitalization/Major Diagno stic Procedure:?Denies Past Hospitalization * Family History:?Mother: dece ased.?Father: , diagnosed with Unspecified essential hypertension, Other malignant neoplasm of unspecified site.?Siblings: cancer.? * Social History:?Tobacco Use:?Tobacco Use/Smoking?Are you a:?former smoker ?Additional Findings: Tobacco Non-User?Current non-smoker ?Tobacco use other than smoking?Are you an other tobacco user??No ???Drugs/Alcohol:?Drugs?Have you used drugs other than those for medical reasons in the past 12 months??No ?Alcohol Screen?Did you have a drink containing alcohol in the past year??Yes ?Points?0 ?Interpretation?Negative ???Miscellaneous:?Caffeine: yes, 1-2 cups per day. ?Exercise: yes. ?Marital status: . ?Occupation: [employer]. * Medications:?TakingMulti Vit kim Vitamin D Lisinopril 2.5 MG Tablet 1 tablet Orally Once a dayOmeprazole 40 MG Capsule Delayed Release 1 capsule 30 minutes before morning meal Orally Once a dayRosuvastatin Calcium 10 MG Tablet 1 tablet Orally Once a dayTaking Multi Vitamin Taking Vitamin D Taking Lisinopril 2.5 MG Tablet 1 tablet Orally Once a dayTaking Omeprazole 40 MG Capsule Delayed Release 1 capsule 30 minutes before morning meal Orally Once a dayTaking Rosuvastatin Calcium 10 MG Tablet 1 tablet Orally Once a dayUnknownNexIUM 40 MG Capsule Delayed Release as directed Orally Crestor 10 MG Tablet 1 tablet Orally Once a dayNortriptyline HCl 10 MG Capsule 1 capsule Orally Three times a dayVitamin D3 5000 UNIT/ML Liquid 0.25 ml Orally Once a daybusPIRone HCl Fish Oil Medication List reviewed and reconciled with the patientUnknown NexIUM 40 MG Capsule Delayed Release as directed Orally Unknown Crestor 10 MG Tablet 1 tablet Orally Once a dayUnknown Nortriptyline HCl 10 MG Capsule 1 capsule Orally Three times a dayUnknown Vitamin D3 5000 UNIT/ML Liquid 0.25 ml Orally Once a dayUnknown busPIRone HCl Unknown Fish Oil Medication List reviewed and reconciled with the patient * Allergies:?Penicillin: rash Objective: * Vitals:?Ht: 5ft 4in, Wt:153, BMI:26.26, Shoe size: 8, Ht-cm: 162.56 cm, Wt-k.57 kg. * Examination: ???General Examination: ?GENERAL APPEARANCE:?pleasant, alert, well nourished, well developed, well hydrated, with good attention to hygene/body habitus, and in no acute distress.?ORIENTED:?person,place, and time.?Neurological: ?SENSORY:?Neurological exam is normal, pain sensation normal, vibration sensation intact, pinprick sensation is normal in the lower extremities, denies, tingling, burning, anesthesia, paresthesia, hyperesthesia, B/L.?TINEL'S COMPRESSION:?Negative tarsal tunnel, puma pedis, and medial calcaneal nerves B/L.?BABINSKI REFLEX:?absent.?Neuroma Pain: ?PALPATION:?No interspace pain noted on palpation.?Vascular: ?DP PULSES:?2/4, B/L.?PT PULSES:?2/4, B/L.?CAPILLARY FILL TIME:?3 secs. per digit, B/L.?SKIN TEMPERTURE GRADIENT OF THE LOWER EXTERMITIES:?warm to cool, proximal to distal, B/L.?HAIR GROWTH/TEXTURE/ELASTICITY/TURGOR:?normal, B/L.?PIGMENTATION:?normal, B/L.?EDEMA:?no edema.?TELANGECTASIA:?absent.?VARICOSITIES:?absent.?Dermatologic: ?SKIN FINDINGS:?Skin exam reveals normal texture, elasticity, and tugor. There are no masses. The interspaces are clear, B/L .?Orthopedic: ?MUSCLE STRENGTH:?5/5 all groups in a symmetrical fashion , B/L.?GAIT ABNORMALITY:?pronated, abducted, B/L.?X-Rays - IMAGING REPORT: ?Clinical Indication(s):? Evaluate Biomechanical Deformity.?Views:? 3 views of Foot, B/L.?Findings:??degenerative changes of the tarsal joints--2nd and 3rd mt-cun.?Foot structure:? reveals cavus foot structure with, posterior break in cyma line.?HAV:? increased First Intermetatarsal angle and Hallux Abductus angle consistent with Bunion deformity noted, hypertrophy of the dorsal and medial 1st MTH without subchondral cyst, mild.? * Physical Examination:?L2999 Supplies:?Insoles-SSOT- graphite?cmft plus size B.? Assessment: * Assessment: 1.?Pain in left foot - M79.6 72?2.?Plantar fascial fibromatosis - M72.2 (Primary)?3.?Pain in right foot - M79.671? Plan: * Treatment: * Procedure Codes:?09105 X-RAY EXAM OF RIGHT FOOT 3V, Modifiers: 26 , VL64912 X- RAY EXAM OF LEFT FOOT 3V, Modifiers: 26 , PLY0912 Insoles-Soft sole ($50) * Preventive Medicine:? ??Counseling:?Discussion:?-03: Office or other outpatient visit for the evaluation and management of a new patient, which required a medically appropriate history and/or examination and LOW level of DECISION MAKING for: 1 STABLE ACUTE UNCOMPLICATED PROBLEM, 2 OR MORE MINOR PROBLEMS, OR 1 STABLE CHRONIC PROBLEM, THAT POSE(S) A LOW RISK FOR MORBIDITY/MORTALITY. The visit on the day of the encounter encompassed interpreting the data and educating the patient as to the nature of their condition, treatment options available according to their individual PMH, meds, allergies, and overall health/living conditions, as well as any potential risks or complications that may occur from a failure to adhere to, and participate in, the recommended course of therapy. The discussion included a complete verbal, and/or written explanation of the examination results, any x-rays taken, the proposed diagnosis, and outline of the treatment plan. A schedule for future care needs was also explained. The patient verbalized an understanding of the instructions at this time and agreed to be an active participant in their treatment. If the patient should think of any questions or concerns after the visit, I have encouraged the patient to call the office.?Orthotic Dispensing:?The patient presents today for fitting and dispensing of orthotics. The inserts were checked against the prescription and found to be accurate. They were properly fitted to the patients feet and shoes in both weight-bearing and non-weight bearing attitudes. The patient was instructed to gradually increase the amount of time they are wearing the orthoses, starting with one hour the first day and thereon progressively increasing the amount of time used by one hours per day until they are comfortable to be worn all day and with all activities. They were asked to call the office if any signs of skin irritation were noted including redness, blistering or callous formation. The patient verbally indicated a full understanding of all the above information.? * Follow Up:?prn * Images: * Sign off status: Completed true * Provider:?Kaushal Santana DPM Date:? 024 Generated for Pramod meyer/Herbie/eTransmitting on:?04/04/2024 06:25 AM EST History and Physical Notes * HPI (History of Present Illness) Category Sub-Category Detail Notes Category Not es Foot Pain Aggrevated: any pressure, standing, walk ing Onset/Cause: unknown Course: worse Duration: several months Nature: aching Treatments: innersoles Quality/Severity 5, scale 1-10 on a b ad day, 1, scale 1-10--good day Location B/L, Forefoot, Midfo ot, Top, Bottom Physical Examination Category Sub-Category Detail Notes Section Note s L2999 Supplies Insoles-SSOT- graphite cmft plus size B Examination Category Sub-Category Detail Notes Category Not es Neuroma Pain PALPATION: No interspace pain noted on palpation Neurological SENSORY: Neurological exa m is normal, pain sensation normal, vibration sensation intact, pinprick sensation is normal in the lower extremities, denies, tingling, burning, anesthesia, paresthesia, hyperesthesia, B/L BABINSKI REFLEX: absent TINEL'S COMPRESSION: Negative tarsal isabel edel, puma pedis, and medial calcaneal nerves B/L Dermatologic SKIN FINDINGS: Skin exam reveal s normal texture, elasticity, and tugor. There are no masses. The interspaces are clear, B/L Orthopedic GAIT ABNORMALITY: pronated, abducted, B/L MUSCLE STRENGTH: 5/5 all groups in a symmetrical fashion , B/L General Examination GENERAL APPEARANCE: pleasant , alert, well nourished, well developed, well hydrated, with good attention to hygene/body habitus, and in no acute distress ORIENTED: person,place, and ti me Vascular DP PULSES (B): 2/4, B/L PT PULSES (B): 2/4, B/L CAPILLARY FILL TIME: 3 secs. per digit, B/L TEMPERTURE GRADIENT (C): warm to cool, p roximal to distal, B/L TROPHIC CONDITION-TEXTURE/ELASTICITY/TURGOR/HAIR GROWTH (B): normal, B/L EDEMA (C): no edema TELANGECTASIA: absent VARICOSITIES: absent PIGMENTATION: normal, B/L X-Rays - IMAGING REPORT Findings: degenera tive changes of the tarsal joints--2nd and 3rd mt-cun Foot structure: reveals cavus foot s tructure with, posterior break in cyma line HAV: increased First Inte rmetatarsal angle and Hallux Abductus angle consistent with Bunion deformity noted, hypertrophy of the dorsal and medial 1st MTH without subchondral cyst, mild Views: 3 views of Foot, B/L Clinical Indication(s): Evaluate Biomech anical Deformity
--- OUTSIDE RECORDS SUMMARY | 2024-04-04 06:25 | XMS_ITS ---
Author Organization [facility] Address [address] [place] [address] Care Team Providers Care Assistant Food Service Director Name Role Phone Luis Enrique VIVAR, [place] Primary Care Provider Unava ilKaushal Escudero [phone] REASON FOR VISIT BUY Comfort Plus/ B - m 7-7.5 Encounters Encounter Location Date Provider Diagnosis [address] [address] 06/30/2023 Kaushal Santana Plan Of Treatment No Information Progress Notes * Darin RICO CDOB:1965 (58 yo M)Acc No.[id number]:06/30/2023 Patient:?Darin Rico :1965???Age:58 Y???Sex:Male Address:[address] [place] [address] [place], [address] * true * Date:? Generated for Printi ng/Faxing/eTransmitting on:?04/04/2024 06:24 AM EST
--- OUTSIDE RECORDS SUMMARY | 2024-04-04 06:25 | XMS_ITS | Patient Health Record ---
Author Organization [facility] Address [address] [place] [address] Care Team Providers Care Title Camera Operator Name Role Phone Luis Enrique VIVAR, [place] Primary Care Provider UnaBj Wilde Unavailable [phone] ALLERGIES Allergen (clinical drug ingredient) Drug/Non Drug Allergy documented on EMR Reaction Allergy Type Onset Date Status Penicillin Unknown Drug Allergy Active REASON FOR REFERRAL No Information MEDICATIONS Medication SIG (Take, Route, Frequency, Duration) Notes Start Date End Date Status Omeprazole 40 MG TAKE 1 CAPSULE BY MO UTH DAILY. Oral for 90 Active Rosuvastatin Calcium 10 MG TAKE 1 TABLET BY MOUTH DAILY Oral for 90 Active Lisinopril 2.5 MG TAKE 1 TABLET BY TERESSA TH DAILY. Oral for 85 Active Vitamin D3 1000 UNIT 1 capsule Orally On ce a day Active Aspirin Adult Low Dose Active Gas Relief 80 MG 1 tablet after meals and at bedtime as needed Orally Four times a day Active Tacrolimus 0.1 % as directed External ly as needed Active Colchicine 0.6 MG TAKE 1 TABLET BY TERESSA TH EVERY DAY Oral for 90 Active IMMUNIZATIONS Vaccine Route Administration Date Status Comme nts Influenza Unknown 02/23/2022 Administered SOCIAL HISTORY Sex Assigned At : Social History Observation Description Sex Assigned At Unknown PROBLEMS Problem Type ICD Code Onset Dates Problem Status W/U Status Risk SNOMED Code Notes Problem Encounter for screening for malignant neoplasm of colon (Z12.11) Active confirmed 303418452 Problem History of adenomatous polyp of colon (Z86.010) Active confirmed 719908148 Problem 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) Active confirmed 222758320 Problem Diverticulosis of large intestine without perforation or abscess without bleeding (K57.30) Active confirmed Diverticul ar disease of colon (397409068) Problem Encounter for screening for malignant neoplasm of rectum (Z12.12) Active confirmed Screening for malignant neoplasm of rectum (200512753) Problem Gastroesophageal reflux disease (K21.9) Active confirmed Gastroesophagea l reflux disease (870828009) Problem Gastroesophageal reflux disease without esophagitis (K21.9) Active confirmed 924815452 Problem Covington esophagus (K22.70) Active confirmed Covington esophag us (388072015) PLAN OF TREATMENT Future Test Test Name Order Date UPPER GI ENDOSCOPY 02/14/2013 UPPER GI ENDOSCOPY 12/18/2015 COLONOSCOPY 12/18/2015 UPPER GI ENDOSCOPY 03/12/2022 COLONOSCOPY 03/12/2022 Insurance Providers Payer Name Payer Address Payer Phone Subscriber Number Group Number Insured Name Patient Relationship to Insured Coverage Start Date Coverage End Date [facility] [employer] [address] [place] [address] [id number] HORTENCIA RICO Self - patient is the insured MEDICAL (GENERAL) HISTORY Medical History History ICD Code EGD 01-23-2009--small to mode rate sized HH, small area of Covington's--no dysplasia--no esophagitis; F/U EGD in 04/2013 was neg. for any Covington's mucosa GERD Depression/anxiety Denies DE,DM,CVA,Lung disease,renal dise ase Hyperlipidemia Pericarditis 02/2022--negati ve cardiac cath at [facility]--treated with Colchicine--seeing Dr. Burns Eczema Colonoscopy in 11/2016 with a small tubu lar adenoma removed EGD 11/2016-small HH, no Covington's on e biopsies, no esophagitis Factor V deficiency Surgical History Surgery Date(Month/Year) Surgery for a broken wrist
--- OUTSIDE RECORDS SUMMARY | 2024-04-04 06:25 | XMS_ITS | Patient Health Record ---
Author Organization [facility] Address [address] [place] [address] Care Team Providers Care Home Extension Agent Name Role Phone Robbie Dudley MD Primary Care Provider Unava ilable Kaushal Santana Unavailable [phone] Allergies Allergen (clinical drug ingredient) Drug/Non Drug Allergy documented on EMR Reaction Allergy Type Onset Date Status Penicillin rash Drug Allergy Active Reason For Referral Diagnosis 1 Pain in unspecified foot (M79.673) Referring Provider First Name Robbie Referring Provider Last Name Luis Enrique Referred Organization [facility] Referred Provider Kaushal Santana Referred Address [address] [place],[address], Referred Provider Specialty Podiatry Referral Priority Routine Medications Medication SIG (Take, Route, Frequency, Duration) Notes Start Date End Date Status Omeprazole 40 MG 1 capsule 30 minutes before morning meal Orally Once a day Active Rosuvastatin Calcium 10 MG 1 tablet Oral ly Once a day Active Lisinopril 2.5 MG 1 tablet Orally Once a day Active Multi Vitamin Active Vitamin D Active busPIRone HCl Unknow n Fish Oil Unknown Nortriptyline HCl 10 MG 1 capsule Orally Three times a day for 30 day(s) Unknown Vitamin D3 5000 UNIT/ML 0.25 ml Orally O nce a day for 30 day(s) Unknown NexIUM 40 MG as directed Orally Unknown Crestor 10 MG 1 tablet Orally Once a day for 30 day(s) Unknown Social History Tobacco Use: Social History Observation [...] Are you an other tobacco user? No Problems Problem Type SNOMED Code ICD Code Onset Dates Problem Status W/U Status Risk Notes Problem Hallux valgus (181969603) Hallux Valgus (735.0) Active confirmed Problem Hammer toe (547409458) Hammer toe (735.4) Active confirmed Problem Pain in limb (48278266) Pain in Limb (729.5) Active confirmed Vital Signs Height 5ft 4in in 06/30/2023 Weight 153 lbs 06/30/2023 BMI 26.26 kg/m2 06/30/2023 Encounters Encounter Location Date Provider Diagnosis [facility] [address] [address] 06/30/2023 Kaushal Santana Plantar fascial fibromatosis M72.2 ; Pain in left foot M79.672 and Pain in right foot M79.671 [facility] [address] [address] 06/30/2023 Kaushal Santana Assessments Encounter Date Diagnosis (ICD Code) Assessment Notes Treatment Notes Treatment Clinical Notes Section Notes 06/30/2023 Pain in left foot (ICD-10 - M79.672) 06/30/2023 Plantar fascial fibromatosis (ICD-10 - M72.2) 06/30/2023 Pain in right foot (ICD-10 - M79.671) Plan Of Treatment Pending Test Test Name Order Date X ray : Foot, left 2V 06/22/2011 X ray : Foot, right 2V 06/22/2011 X ray : Foot, left 3V 06/30/2023 X ray : Foot, right 3V 06/30/2023 Insurance Providers Payer Name Payer Address Payer Phone Subscriber Number Group Number Insured Name Patient Relationship to Insured Coverage Start Date Coverage End Date [facility] [address] [place] [address] [id number] Darin Davidson Self - patient is the insured Medical (General) History Medical History History ICD Code hypertension depression gastroesophageal reflux disease (GERD) Barretts esophagus vitamin D deficiency elevated LFTs Anxiety Broken bones covid-19 Depression High blood pressure Psoriasis/eczema Reflux ( GERD) Surgical History Surgery Date(Month/Year) wrist surgery 08/1999
[2024-04-04 10:26] LABS: Alanine Aminotransferase 28 U/L (0-40); Albumin Level 4.4 g/dL (3.5-5.0); Alkaline Phosphatase 79 U/L (39-117); Anion Gap 12 (12-20); Aspartate Amino Transferase 34 U/L (5-37); Bilirubin Total 0.8 mg/dL (0.0-1.0); Blood Urea Nitrogen 16 mg/dL (9-16); Calcium 9.1 mg/dL (8.4-10.2); Carbon Dioxide 26 mmol/L (22-29); Chloride 108 mmol/L (96-108); Cholesterol 138 mg/dL (<200); Estimated Glomerular Filt Rate > 60; Glucose Fasting 90 mg/dL (60-99); HDL Cholesterol 49 mg/dL (>40); LDL Cholesterol Calculated 80 mg/dL (<100); Sodium 142 mmol/L (135-145); Total Protein 7.3 g/dL (6.5-8.0); Triglycerides 45 mg/dL (<150)
== END 2024-04-04 06:23 | disposition home or self-care (01) ==
LOC: HO.HMGCLDS 06:22
PROVIDERS: PCP Internal Medicine; Visit Provider Internal Medicine
DX: E78.00 Pure hypercholesterolemia, unspecified (principal)
CPT/HCPCS: 36415; 80053; 80061

== ENCOUNTER 2024-04-10 17:12 | Outpatient (AMB) | payer BC, SELFPAY ==
[2024-04-10 17:18] VITALS: BP 130/86; PULSE 59; O2SAT 97; BMI 25.1
--- NOTE | 2024-04-10 17:18 | A.OFFPC_ITS ---
Vital Signs 04/10/24 17:18 Height 5 ft 5 in Weight 151 lb BMI 25.1 BP 130/86 Blood Pressure Location Lt brachial Position Sitting Pulse 59 Pulse Source Pulse Oximeter Pulse Oximetry (%) 97 Oxygen Delivery Method Room Air Intake Visit Reasons: 4 month f/u Intake Note: Patient here for a 4 month follow up Inventory Control Supervisor Required: No Accompanied by: Self / Same As Patient Allergies Penicillins [PCN] Allergy (Mild, Verified 04/10/24 17:33) RASH penicillin V Allergy (Unknown, Verified 04/10/24 17:33) rash Medication List - Last Reconciled 04/10/24 by Robbie Dudley MD acetylcysteine (bulk) 1 capsule orally once a day as directed; cholecalciferol (vitamin D3) (Vitamin D3) 50 mcg PO DAILY lisinopril 2.5 mg PO DAILY magnesium glycinate (Mag Glycinate) 200 mg PO DAILY omega 7-kqs-pqe-fish oil 1,000 (120-180) mg (Fish Oil) 1 cap PO DAILY omeprazole 40 mg PO DAILY 90 days rosuvastatin 10 mg PO DAILY Tobacco use date assessed: 04/10/24 Dental Screening Dental Screen Date: 04/10/24 Did you have a dental visit in the last 12 months?: Yes Did you have a dental problem in the last 6 months where you did not have access to dental care?: No Was dental information given to patient?: Patient has dentist HPI 4 month f/u HPI Details Patient comes in today for his follow-up visit States that he has been trying out some naturopathic medicine/treatment recently and is now taking some Magnesium glycinate as well as some acetylcysteine capsules (powder) recently, which are supposed to help replenish his energy levels States that he is also considering taking some supplements to help restore the lining of his stomach but he would like to discuss this further with Dr. Spencer before he starts taking them States that he currently feels well He denies any headaches or dizziness Denies any chest pains, no shortness of breath No nausea/vomiting, no abdominal pain No change in bowel habits noted He had his follow-up labs done last week - to discuss his results FOR[facility], [facility] Medical History Pericarditis History of pericarditis (~02/2022) History of Covington's esophagus Overweight (BMI 25.0-29.9) Depression Anxiety Vitamin D deficiency GERD without esophagitis Covington's esophagus without dysplasia Pure hypercholesterolemia Benign essential hypertension Impaired fasting glucose Broken wrist Surgical History History of esophagogastroduodenoscopy (EGD) Hx of colonoscopy S/P cardiac cath Family History Mother No problems noted. Father No problems noted. Social History Housing: House Alcohol intake: current Alcohol intake frequency: holidays/special occasions only Patient Tobacco Use Status: Never used Tobacco e-Cigarette/Vaping Use: Never Used Second Hand Smoke Exposure: Yes service: No Current occupational status: employed Current occupational exposures/hazards: No Cognitive needs: No Hearing needs: No Vision needs: Yes Questionnaire PHQ-9 Over the last 2 weeks, how often have you been bothered by any of the following problems? 1. Little interest or pleasure in doing things: not at all 2. Feeling down, depressed, or hopeless: not at all 3. Trouble falling or staying asleep, or sleeping too much: not at all 4. Feeling tired or having little energy: not at all 5. Poor appetite or overeating: not at all 6. Feeling bad about yourself - or that you are a failure or have let yourself or your family down: not at all 7. Trouble concentrating on things, such as reading the newspaper or watching television: not at all 8. Moving or speaking so slowly that other people could have noticed. Or the opposite - being so fidgety or restless that you have been moving around a lot more than usual: not at all 9. Thoughts that you would be better off or of hurting yourself in some way: not at all Total score: 0 Depression Screening Interpretation: Negative Depression Screening Done: Yes 58032 - PHQ-9 Billing: Yes Source: Developed by Drs. Bj Goldberg, Cheri Adorno, Imer Rivers and colleagues, with an educational emerald from [employer]. Thrive Questionnaire Date Thrive assessed: 04/10/24 I am a: Patient What is your living situation today?: I have a steady place to live Within the past 12 months, did the food you bought not last and you didn't have the money to get more?: Never true Within the past 12 months, did you worry whether your food would run out before you got money to buy more?: Never true Do you have trouble paying for medicines?: No Do you have trouble getting transportation to medical appointments?: No Do you have trouble paying your heating and electricity bill?: No Do you have trouble taking care of your child, family member or friend?: No Do you have trouble with day-to-day activities such as bathing, preparing meals, shopping, managing finances, etc.?: No Are you currently unemployed and looking for a job?: No Are you interested in more education?: No Please select the resources that you would like help with: None Currently or been in a relationship where the following occur: No concerns reported THRIVE Score: 0 AUDIT C Alcohol Use Questionnaire (AUDIT-C) 1. How often do you have a drink containing alcohol?: Monthly or less 2. How many drinks containing alcohol do you have on a typical day when you are drinking?: 1 or 2 3. How often do you have six or more drinks on one occasion?: Monthly Total Score: 3 Score Reviewed/Action Taken: Yes PADMINI-7 AMB Questionnaire PADMINI-7 Date PADMINI - 7 assessed: 04/10/24 Feeling nervous, anxious, or on edge: 0 = Not at all Not being able to stop or control worryin = Not at all Worrying too much about different things: 0 = Not at all Trouble relaxin = Not at all Being so restless that it is hard to sit still: 0 = Not at all Becoming easily annoyed or irritable: 0 = Not at all Feeling afraid as if something awful might happen: 0 = Not at all Total PADMINI-7 score (0-4 normal; 5-9 mild; 10-14 moderate; 15-21 severe): 0 Source: Developed by Drs. Bj Goldberg, Cheri Adorno, Imer Rivers and colleagues, with an educational emerald from [employer]. Review of Systems Const Denies chills, Denies fatigue, Denies fever(s) and Denies headache(s) ENT Denies dysphagia, Denies dizziness, Denies otalgia, Denies headache(s), Denies neck pain, Denies odynophagia and Denies sore throat Card Denies chest pain, Denies palpitations and Denies dyspnea Resp Denies chest congestion, Denies cough and Denies dyspnea GI Denies abdominal pain, Reports constipation (at times), Denies dysphagia, Denies heartburn, Denies diarrhea, Denies nausea, Denies odynophagia and Denies vomiting Denies difficulty urinating, Denies dysuria, Denies nocturia and Denies urinary frequency Musc Denies back pain and Denies neck pain Skin/Breast Denies rash Neuro Denies dizziness and Denies headache(s) Endo Denies fatigue and Denies palpitations Physical exam (Primary Care) Vital Signs: Last Vital Signs Pulse 59 04/10/24 17:18 BP 130/86 04/10/24 17:18 Pulse Ox 97 04/10/24 17:18 Oxygen Delivery Method Room Air 04/10/24 17:18 BMI result Body Mass Index 25.1 Tobacco/Smoking Status: Tobacco use Status Tobacco use date assessed 04/10/24 04/10/24 17:24 Patient Tobacco Use Status Never used Tobacco 04/10/24 17:24 e-Cigarette/Vaping Use Never Used 04/10/24 17:24 PHQ-9: PHQ-9 Score PHQ-9: Total score 0 04/10/24 17:39 Depression Screening Interpretation: Negative Thrive Assessment: Date of Thrive Assessment Date Thrive assessed 04/10/24 04/10/24 17:24 Currently or been in a relationship where the following occur: No concerns reported Const General: no acute distress and alert HENMT Ears: TM's normal bilaterally and EAC's normal Throat: Yes posterior oropharynx normal and Yes tonsils normal (no TP congestion) Neck Neck: Yes supple and No lymphadenopathy Thyroid: Thyroid normal Resp Auscultation: clear to auscultation bilaterally, no rales and no wheezes Cardio Rate: regular rate Rhythm: regular rhythm Heart sounds: no murmurs GI Palpation (GI): Soft to palpation and nontender Auscultation: normal bowel sounds General: Yes no CVA tenderness Back/Spine/Pelvis Back: no CVA tenderness Thoracic/Lumbar Spine: No lumbar spinal tenderness Skin Rashes: no rashes Extrem General: Yes no clubbing, cyanosis or edema Results Reviewed Results Reviewed: Laboratory Tests 04/04/24 06:58 Sodium 142 Potassium 4.0 Creatinine 0.81 Estimated GFR > 60 Fasting Glucose 90 Calcium 9.1 D AST 34 ALT 28 Triglycerides 45 Cholesterol 138 LDL Cholesterol, Calc 80 HDL Cholesterol 49 Coding Level of Care Code Est Pt Level 4 (97423) Diagnoses Benign essential hypertension I10 Pure hypercholesterolemia E78.00 Covington's esophagus without dysplasia K22.70 Impaired fasting glucose R73.01 History of pericarditis Z86.79 Vitamin D deficiency E55.9 Constipation, unspecified constipation type K59.00 Constipation type: unspecified constipation type Anxiety F41.9 Episode of recurrent major depressive disorder, unspecified depression episode severity F33.9 Active/Remission status: currently active Depression Type: major depressive disorder Major depression episode severity: unspecified Major depression recurrence: recurrent Additional Codes PHQ-9 - 05176 - PHQ-9 Billing: Yes ([id number]) Assessment & Plan Assessment & Plan (1) Benign essential hypertension: Code(s): I10 - Essential (primary) hypertension Category: Medical Plan: Reinforced low-sodium diet - goal is systolic BP of 120 mm or less Continue Lisinopril 2.5 mg QD (2) Pure hypercholesterolemia: Code(s): E78.00 - Pure hypercholesterolemia, unspecified Category: Medical Plan: Results of his labs done last week reviewed and discussed with patient - he is a dvised that his cholesterol levels have improved slightly from previous Reinforced low cholesterol diet Continue Rosuvastatin 10 mg QD and Fish Oil capsules 1200 mg 1 capsule daily Will recheck his labs and fasting lipids in 4 months for follow-up (3) Covington's esophagus without dysplasia: Comment: diagnosed in 2008 - subsequent EGDs every 3 years have been negative, most recently on 05/11/2022 Code(s): K22.70 - Covington's esophagus without dysplasia Category: Medical Plan: He had a repeat EGD as well as a repeat colonoscopy done with Dr. Spencer a couple of years ago in April 2022 - findings remain consistent with GERD and no abnormal epithelial changes noted He was advised that he may not need any further EGD from here on unless indicated; recommend repeat colonoscopy in 5 years (2027) due to tubular adenomas Reinforced dietary restrictions similar to those in GERD Continue Omeprazole 40 mg QD Follow-up with GI as scheduled (4) Impaired fasting glucose: Code(s): R73.01 - Impaired fasting glucose Category: Medical Plan: His FBS was normal at 90 mg/dl on his recent labs HgbA1c was normal at 5.7% and 5.5% when previously checked Reinforced low-calorie diet / exercise as tolerated (5) History of pericarditis: Onset Date: ~02/2022 Code(s): Z86.79 - Personal history of other diseases of the circulatory system Category: Medical Plan: S/P Tx with Colchicine and Aspirin x 3 months Patient states that he has not had any recurrence of this since February 2022 A repeat limited echocardiogram done in April 2022 revealed normal EF with no evidence of pericardial effusion; the basal inferior and basal inferolateral segments are hypokinetic Follow up with cardiology as scheduled - he sees cardiology now just once a year for routine follow ups (6) Vitamin D deficiency: Code(s): E55.9 - Vitamin D deficiency, unspecified Category: Medical Plan: Continue Vitamin D3 2000 units QD (7) Constipation: Code(s): K59.00 - Constipation, unspecified Category: Medical Qualifiers: Constipation type: unspecified constipation type Qualified Code(s): K59.00 - Constipation, unspecified Plan: Patient was experiencing increased constipation and bloating previously but states that his symptoms have improved since Continue OTC Senna 8.6 mg 1 to 2 tablets QD PRN although he states that he has not had to take this in a while now Reinforced increased oral fluids and dietary fiber intake (8) Anxiety: Code(s): F41.9 - Anxiety disorder, unspecified Category: Medical Plan: Patient states that he has been doing well with his anxiety so far and is currently on no Rx (9) Depression: Code(s): F32.A - Depression, unspecified Category: Medical Qualifiers: Active/Remission status: currently active Depression Type: major depressive disorder Major depression episode severity: unspecified Major depression recurrence: recurrent Qualified Code(s): F33.9 - Major depressive disorder, recurrent, unspecified Plan: Patient was weaned off Nortriptyline in the past and he has not been on any Rx for his mood since - states that he feels well and does not need any Rx at this time Follow-up with Psychiatry (Dr. Fuentes) as needed Plan Follow up in 4 months Orders: Orders Comprehensive [place]. Panel Fast 4 Months E78.00 - Pure hypercholesterolemia, unspecified Lipid Panel 4 Months E78.00 - Pure hypercholesterolemia, unspecified UA CC w/rflx Micro + Cult 4 Months R30.0 - Dysuria Vitamin D 25-OH Total 4 Months E55.9 - Vitamin D deficiency, unspecified Complete Blood Count Auto Diff 4 Months D64.9 - Anemia, unspecified TSH reflex Free T4 4 Months E78.00 - Pure hypercholesterolemia, unspecified
--- OUTSIDE RECORDS SUMMARY | 2024-04-10 18:43 | XMS_ITS | Patient Health Record ---
Author Organization [facility] Address [address] [place] [address] Care Team Providers Care Search Engine Optimization Consultant Name Role Phone Robbie Dudley MD Primary Care Provider Unava ilable Kaushal Santana Unavailable [phone] Allergies Allergen (clinical drug ingredient) Drug/Non Drug Allergy documented on EMR Reaction Allergy Type Onset Date Status Penicillin rash Drug Allergy Active Reason For Referral Diagnosis 1 Pain in unspecified foot (M79.673) Referring Provider First Name Robbie Referring Provider Last Name Luis Enrique Referred Organization [facility] Referred Provider Kaushal Santana Referred Address [address], Referred Provider Specialty Podiatry Referral Priority Routine [...] W/U Status Risk Notes Problem Hallux valgus (349157596) Hallux Valgus (735.0) Active confirmed Problem Hammer toe (308757725) Hammer toe (735.4) Active confirmed Problem Pain in limb (91148669) Pain in Limb (729.5) Active confirmed Vital Signs Height 5ft 4in in 06/30/2023 Weight 153 lbs 06/30/2023 BMI 26.26 kg/m2 06/30/2023 Encounters Encounter Location Date Provider Diagnosis [facility] [address] [address] 06/30/2023 Kaushal Santana Plantar fascial fibromatosis M72.2 ; Pain in left foot M79.672 and Pain in right foot M79.671 [facility] [address] [address] 06/30/2023 Kaushal Santana Assessments Encounter Date Diagnosis [...] Insured Coverage Start Date Coverage End Date [facility] [address] [place] [address] [id number] Darin Davidson Self - patient is the insured Medical (General) History Medical History History ICD Code hypertension depression gastroesophageal reflux disease (GERD) Barretts esophagus vitamin D deficiency elevated LFTs Anxiety Broken bones covid-19 Depression High blood pressure Psoriasis/eczema Reflux ( GERD) Surgical History Surgery Date(Month/Year) wrist surgery 08/1999
--- OUTSIDE RECORDS SUMMARY | 2024-04-10 18:43 | XMS_ITS | Patient Health Record ---
Author Organization [facility] Address [address] [place] [address] Care Team Providers Care Salesperson Burial Plots Name Role Phone Luis Enrique VIVAR, [place] Primary Care Provider UnaBj Wilde Unavailable [phone] ALLERGIES Allergen (clinical drug ingredient) Drug/Non Drug [...] malignant neoplasm of colon (Z12.11) Active confirmed [id number] Problem History of adenomatous polyp of colon (Z86.010) Active confirmed 886835186 Problem 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) Active confirmed 548870716 Problem Diverticulosis of large intestine without perforation or abscess without bleeding (K57.30) Active confirmed Diverticul ar disease of colon (682789197) Problem Encounter for screening for malignant neoplasm of rectum (Z12.12) Active confirmed Screening for malignant neoplasm of rectum (762261178) Problem Gastroesophageal reflux disease (K21.9) Active confirmed Gastroesophagea l reflux disease (028935463) Problem Gastroesophageal reflux disease without esophagitis (K21.9) Active confirmed 132373535 Problem Covington esophagus (K22.70) Active confirmed Covington esophag us (334719972) PLAN OF TREATMENT Future Test Test Name Order Date UPPER GI ENDOSCOPY 02/14/2013 UPPER GI ENDOSCOPY 12/18/2015 COLONOSCOPY 12/18/2015 UPPER GI ENDOSCOPY 03/12/2022 COLONOSCOPY 03/12/2022 Insurance Providers Payer Name Payer Address Payer Phone Subscriber Number Group Number Insured Name Patient Relationship to Insured Coverage Start Date Coverage End Date [facility] [employer] [address] [place] [address] [id number] HORTENCIA R[place] Self - patient is the insured MEDICAL (GENERAL) HISTORY Medical History History ICD Code EGD 01-23-2009--small to mode rate sized HH, small area of Covington's--no dysplasia--no esophagitis; F/U EGD in 04/2013 was neg. for any Covington's mucosa GERD Depression/anxiety Denies [place],DM,CVA,Lung disease,renal dise ase Hyperlipidemia Pericarditis 02/2022--negati ve cardiac cath at [facility]--treated with Colchicine--seeing Dr. Burns Eczema Colonoscopy in 11/2016 with a small tubu lar adenoma removed EGD 11/2016-small HH, no Covington's on e biopsies, no esophagitis Factor V deficiency Surgical History Surgery Date(Month/Year) Surgery for a broken wrist
--- OUTSIDE RECORDS SUMMARY | 2024-04-10 18:43 | XMS_ITS ---
[facility] Address [address] [place] [address] Care Team Providers Care Pit Inspector Name Role Phone Luis Enrique VIVAR, [place] Primary Care Provider UnaKaushal Ruiz Unavailable [phone] Allergies Allergen (clinical drug ingredient) Drug/Non Drug [...] 06/30/2023 Encounters Encounter Location Date Provider Diagnosis [facility] [place] [address] [place] [address] 06/30/2023 Kaushal Santana Plantar fascial fibromatosis M72.2 [...] * Darin RICO CDOB:1965 (58 yo M)Acc No.[id number]:06/30/2023 Progress Notes Patient:?Darin Rico C Provider:?Kaushal Santana DPM :1965???Age:58 Y???Sex:Male Antonio e:06/30/2023 Address:[address] [place], [place] [address] Pcp:Robbie Dudley MD Subjective: * Chief Complaints: [...] day. ?Exercise: yes. ?Marital status: . ?Occupation: [employer]. * Medications:?TakingMulti Vit kim Vitamin D Lisinopril [...] - M79.671? Plan: * Treatment: * Procedure Codes:?28975 X-RAY EXAM OF RIGHT FOOT 3V, Modifiers: 26 , [id number] X- RAY EXAM OF LEFT FOOT 3V, Modifiers: 26 , [id number] Insoles-Soft sole ($50) * Preventive Medicine:? ??Counseling:?Discussion:?-03: [...] DPM Date:? 024 Generated for Pramod meyer/Herbie/eTransmitting on:?04/10/2024 06:43 PM EST History and Physical Notes * HPI [...]
--- OUTSIDE RECORDS SUMMARY | 2024-04-10 18:43 | XMS_ITS ---
Author Organization [facility] Address [address] [place] [address] Care Team Providers Care Blow Down Operator Name Role Phone Luis Enrique VIVAR, [place] Primary Care Provider Unava ilKaushal Escudero [phone] REASON FOR VISIT BUY Comfort Plus/ B - m 7-7.5 Encounters Encounter Location Date Provider Diagnosis [address] [address] 06/30/2023 Kaushal Santana Plan Of Treatment No Information Progress Notes * Darin RICO CDOB:1965 (58 yo M)Acc No.[id number]:06/30/2023 Patient:?Darin Rico :1965???Age:58 Y???Sex:Male Address:[address] [place] [address] [place], [address] * true * Date:? Generated for Printi ng/Faxing/eTransmitting on:?04/10/2024 06:42 PM EST
== END 2024-04-10 17:46 | disposition home or self-care (01) ==
PROVIDERS: PCP Internal Medicine; Visit Provider Internal Medicine
DX: I10 Essential (primary) hypertension (principal); E78.00 Pure hypercholesterolemia, unspecified; F33.9 Major depressive disorder, recurrent, unspecified; K22.70 Barrett's esophagus without dysplasia; R73.01 Impaired fasting glucose; Z86.79 Personal history of other diseases of the circulatory system; E55.9 Vitamin D deficiency, unspecified; K59.00 Constipation, unspecified; F41.9 Anxiety disorder, unspecified

== ENCOUNTER → 2024-04-10 17:12 | Outpatient (BNVA) | payer BC, SELFPAY | PROVIDERS: PCP Internal Medicine; Visit Provider Internal Medicine | DX: I10 Essential (primary) hypertension (principal); E78.00 Pure hypercholesterolemia, unspecified; K22.70 Barrett's esophagus without dysplasia; R73.01 Impaired fasting glucose; E55.9 Vitamin D deficiency, unspecified; K59.00 Constipation, unspecified; F41.9 Anxiety disorder, unspecified; F33.9 Major depressive disorder, recurrent, unspecified; Z86.79 Personal history of other diseases of the circulatory system; Z79.899 Other long term (current) drug therapy | CPT/HCPCS: 96127 ==

== ENCOUNTER 2024-06-19 09:31 | Outpatient (AMB) | payer BC, SELFPAY ==
--- NOTE | 2024-06-19 09:34 | MHC.OFFVIS ---
Vital Signs 06/19/24 09:35 Height 5 ft 5 in Weight 149 lb 7.574 oz BMI 24.9 BP 130/70 Blood Pressure Location Lt brachial Position Sitting Pulse 60 Pulse Source Monitor Intake Visit Reasons: R/S 04/26- 1 yr f/up Intake Note: 1 yr f/up Educational Program Assistant Required: No Accompanied by: Self / Same As Patient Allergies Penicillins [PCN] Allergy (Mild, Verified 04/10/24 17:33) RASH penicillin V Allergy (Unknown, Verified 04/10/24 17:33) rash Medication List - Last Reconciled 06/19/24 by Benton Burns MD cholecalciferol (vitamin D3) (Vitamin D3) 50 mcg PO DAILY lisinopril 2.5 mg PO DAILY magnesium glycinate (Mag Glycinate) 200 mg PO DAILY omega 6-gvz-gmf-fish oil 1,000 (120-180) mg (Fish Oil) 1 cap PO DAILY omeprazole 40 mg PO DAILY 90 days rosuvastatin 10 mg PO DAILY HPI Comments Details: Muaei-etfc-zxo gentleman who is here for follow-up. He was seen in the hospital when he presented with chest discomfort and basal inferior wall motion abnormality. He was transferred for cardiac catheterization which showed no significant coronary disease. His EKG evolved into pericarditis while he was at [facility]. Subsequent to that he was treated with colchicine and improved. He has been doing well since then. He is denying any chest discomfort or shortness of breath. Two episodes approximately 7 months apart where he had transient dizziness. One episode was recently when he noticed that he lost his balance for a second or 2. He is denying any ear issues or ringing in his ear. He is going to restart biking as whether he is improving. 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 Father No problems noted. Social History Housing: House Alcohol intake: current Alcohol intake frequency: holidays/special occasions only Patient Tobacco Use Status: Never used Tobacco e-Cigarette/Vaping Use: Never Used Second Hand Smoke Exposure: Yes service: No Current occupational status: employed Current occupational exposures/hazards: No Cognitive needs: No Hearing needs: No Vision needs: Yes Review of Systems Const Denies chills, Denies fatigue, Denies fever(s), Denies frequent falls, Denies weakness, Denies weight gain and Denies weight loss ENT Denies dizziness Card Denies chest pain, Denies leg edema, Denies lightheadedness, Denies palpitations, Denies dyspnea and Denies dyspnea on exertion Resp Denies cough, Denies dyspnea and Denies dyspnea on exertion GI Denies hematochezia Musc Denies abnormal gait, Denies muscle weakness, Denies numbness, Denies radiating pain into limb and Denies tingling Neuro Denies abnormal gait, Denies dizziness, Denies frequent falls, Denies numbness, Denies tingling and Denies weakness Endo Denies fatigue and Denies palpitations Physical Exam Vital Signs: Last Vital Signs Pulse 60 06/19/24 09:35 BP 130/70 06/19/24 09:35 BMI result Body Mass Index 24.9 GENERAL APPEARANCE: in no acute distress, pleasant. NECK: no carotid bruit, no jugular venous distention. SKIN: no suspicious lesions, warm and dry. HEART: no murmurs, regular rate and rhythm. LUNGS: clear to auscultation bilaterally. ABDOMEN: soft, nontender. EXTREMITIES: no edema. PERIPHERAL PULSES: equal. NEUROLOGIC: No gross deficits, AAO X 3 Office Procedures EKG Details: Sinus rhythm 60 beats per minute, normal ECG, QTC 392 milliseconds. [id number], Complete Assessment & Plan Assessment & Plan (1) Benign essential hypertension: Code(s): I10 - Essential (primary) hypertension Category: Medical (2) Pericarditis: Comment: occurred in February 2022 Code(s): I31.9 - Disease of pericardium, unspecified Category: Medical Qualifiers: Pericarditis type: unspecified type Chronicity: unspecified Qualified Code(s): I31.9 - Disease of pericardium, unspecified Plan 59-year-old gentleman with background history of acute pericarditis for which he was treated with colchicine. He has been off colchicine at this stage. He has hypertension and blood pressure control is good with lisinopril 2.5 mg daily. He is taking rosuvastatin 10 mg daily. He should have yearly fasting lipid panel. Clinically has been stable. He has some wall motion abnormalities noted but basal inferior wall motion abnormality is quite frequently over called. He did not have any biomarker rise to suggest myocarditis and I think we do not need to cardiac MRI or any further testing. He had 2 episodes of transient dizziness which appears to be a balance issue and could be related to ear problems. I have advised him to monitor this for now. No clear syncope/presyncope episodes. Follow up with us in 1 year Thank you for allowing me to participate in the care of your patient. Please feel free to contact me if you have any questions. Coding Level of Care Code Est Pt Level 4 (66558) Diagnoses Benign essential hypertension I10 Pericarditis, unspecified chronicity, unspecified type I31.9 Pericarditis type: unspecified type Chronicity: unspecified CPT Codes EKG - CPT: 39359-[id number], Complete ([id number])
[2024-06-19 09:35] VITALS: BP 130/70; PULSE 60; BMI 24.9
== END 2024-06-19 10:05 | disposition home or self-care (01) ==
LOC: HO.HCS 09:31
PROVIDERS: PCP Internal Medicine; Visit Provider Internal Medicine Cardiovascular Disease
DX: I10 Essential (primary) hypertension (principal); I31.9 Disease of pericardium, unspecified
CPT/HCPCS: 93010; 99214

== ENCOUNTER → 2024-06-19 09:31 | Outpatient (BNVA) | payer BC, SELFPAY | PROVIDERS: PCP Internal Medicine; Visit Provider Internal Medicine Cardiovascular Disease | DX: I10 Essential (primary) hypertension (principal); I31.9 Disease of pericardium, unspecified | CPT/HCPCS: 93005 ==

== ENCOUNTER 2024-07-17 08:13 | Outpatient (AMB) | payer BC, SELFPAY ==
--- OUTSIDE RECORDS SUMMARY | 2024-07-17 08:17 | XMS_ITS | Patient Health Record ---
Author Organization [facility] Address [address] [place] [address] Care Team Providers Care Surveillance Dual Rate Officer Name Role Phone Luis Enrique VIVAR, [place] Primary Care Provider Bj Dejesus Unavailable [phone] Allergies Allergen (clinical drug ingredient) Drug/Non Drug Allergy documented on EMR Reaction Allergy Type Onset Date Status Penicillin Unknown Drug Allergy Active Reason For Referral No Information Medications Medication SIG (Take, Route, Frequency, Duration) [...] TH EVERY DAY Oral for 90 Active Immunizations Vaccine Route Administration Date Status Comme nts Influenza Unknown 02/23/2022 Administered Problems Problem Type SNOMED Code ICD Code Onset Dates Problem Status W/U Status Risk Notes Problem 580030240 Encounter for screening for malignant neoplasm of colon (Z12.11) Active confirmed Problem 404862330 History of adenomatous polyp of colon (Z86.010) Active confirmed Problem 555321341 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) Active confirmed Problem Diverticular disease of colon (836846933) Diverticulosis of large intestine without perforation or abscess without bleeding (K57.30) Active confirmed Problem Screening for malignant neoplasm of rectum (717598935) Encounter for screening for malignant neoplasm of rectum (Z12.12) Active confirmed Problem Gastroesophageal reflux disease (949429939) Gastroesophageal reflux disease (K21.9) Active confirmed Problem 019383577 Gastroesophageal reflux disease without esophagitis (K21.9) Active confirmed Problem Covington esophagus (112235967) Covington esophagus (K22.70) Active confirmed Plan Of Treatment Future Test Test Name Order Date UPPER GI ENDOSCOPY 02/14/2013 UPPER GI ENDOSCOPY 12/18/2015 COLONOSCOPY 12/18/2015 UPPER GI ENDOSCOPY 03/12/2022 COLONOSCOPY 03/12/2022 Insurance Providers Payer Name Payer Address Payer Phone Subscriber Number Group Number Insured Name Patient Relationship to Insured Coverage Start Date Coverage End Date [facility] [place] [employer] [address] [place] [address] [id number] [place] Self - patient is the insured Medical (General) History Medical History History ICD Code EGD 01-23-2009--small to mode rate sized HH, small area of Covington's--no dysplasia--no esophagitis; F/U EGD in 04/2013 was neg. for any Covington's mucosa GERD Depression/anxiety Denies RI,DM,CVA,Lung disease,renal dise ase Hyperlipidemia Pericarditis 02/2022--negati ve cardiac cath at [facility]--treated with Colchicine--seeing Dr. Burns Eczema Colonoscopy in 11/2016 with a small tubu lar adenoma removed EGD 11/2016-small HH, no Covington's on e biopsies, no esophagitis Factor V deficiency Surgical History Surgery Date(Month/Year) Surgery for a broken wrist
--- NOTE | 2024-07-17 08:30 | AM.OFFWIN_ITS ---
Intake Vital Signs 07/17/24 08:31 Height 5 ft 5 in Weight 135 lb 6 oz BMI 22.5 BP 118/66 Blood Pressure Location Lt brachial Position Sitting Pulse 62 Pulse Source Pulse Oximeter Temp 98.1 F Temp Source Oral Pulse Oximetry (%) 96 Oxygen Delivery Method Room Air Intake Visit Reasons: EP-nausea, diarrhea, lost of weight, body ache Intake Note: Pt presents to the office today for c/o nausea,diarrhea,weight loss, and body aches x18 days. Patient Tobacco Use Status: Never used Tobacco Allergies Penicillins [PCN] Allergy (Mild, Verified 07/17/24 08:33) RASH penicillin V Allergy (Unknown, Verified 07/17/24 08:33) rash HPI HPI Comments History of Present Illness Details 59 y/o Male patient who presents to the walk in clinic with c/o nausea, diarrhea,weight loss, and body aches for 18 days. Pt reports long h/o GI symptoms for years now. Reports that symptoms come and go. He told his PCP who recommended Lifestyle changes. Pt is currently seeing a Naturopathic doctor and has been on Supplements since February. Reports that Supplements did help resolve his symptoms for awhile until 18 days ago when he started to feel sick, and nauseous. Naturopathic doctors diagnosed him with Celiac disease - through Blood work. He has been working on eliminating Gluten on his diet. Today Patient worried maybe he might have Food Poisoning or Virus. 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 Father No problems noted. Social History Housing: House Alcohol intake: current Alcohol intake frequency: holidays/special occasions only Patient Tobacco Use Status: Never used Tobacco e-Cigarette/Vaping Use: Never Used Second Hand Smoke Exposure: Yes service: No Current occupational status: employed Current occupational exposures/hazards: No Cognitive needs: No Hearing needs: No Vision needs: Yes Review of Systems Const All systems reviewed & are unremarkable except as noted in HPI and below Physical Exam Vital Signs: Last Vital Signs Temp 98.1 F 07/17/24 08:31 Pulse 62 07/17/24 08:31 BP 118/66 07/17/24 08:31 Pulse Ox 96 07/17/24 08:31 Oxygen Delivery Method Room Air 07/17/24 08:31 BMI result Body Mass Index 22.5 Const General: no acute distress Nutritional Appearance: thin Orientation/consciousness: patient oriented x3 Resp Effort & Inspection: normal respiratory effort Auscultation: clear to auscultation bilaterally Cardio Heart sounds: S1 normal heart sound present and S2 normal heart sound present GI Palpation (GI): Soft to palpation, not firm, nontender, no guarding, not rigid and No hepatosplenomegaly present Auscultation: Hypoactive bowel sounds present Neuro General: patient oriented x3 Assessment & Plan Assessment & Plan (1) Gastritis: Code(s): K29.70 - Gastritis, unspecified, without bleeding Qualifiers: Gastritis type: unspecified gastritis Chronicity: chronic Gastritis bleeding: without bleeding Qualified Code(s): K29.50 - Unspecified chronic gastritis without bleeding Plan: Advised to take Imodium Advised to f/u with His PCP Recommended GI Increased Fluid intake Advance Diet slowly. Coding Level of Care Code Est Pt Level 4 (09177) Diagnoses Chronic gastritis without bleeding, unspecified gastritis type K29.50 Gastritis type: unspecified gastritis Chronicity: chronic Gastritis bleeding: without bleeding Time Spent (min) 20
[2024-07-17 08:31] VITALS: BP 118/66; PULSE 62; TEMP 36.7; O2SAT 96; BMI 22.5
== END 2024-07-17 09:19 | disposition home or self-care (01) ==
PROVIDERS: PCP Internal Medicine; Visit Provider Nurse Practitioner Family
DX: K29.50 Unspecified chronic gastritis without bleeding (principal)

== ENCOUNTER → 2024-07-17 08:13 | Outpatient (BNVA) | payer BC, SELFPAY | PROVIDERS: PCP Internal Medicine ==

== ENCOUNTER 2024-07-28 06:07 | Outpatient (REF) | payer BC, SELFPAY ==
[2024-07-28 10:05] LABS: MANUAL DIFF FLAG NO
[2024-07-28 10:09] LABS: Basophils Absolute Auto 0.1 X10*3/uL (0.0-0.2); Basophils Percent Auto 1.5 % (0-2); Eosinophils Absolute Auto 0.1 X10*3/uL (0.0-0.4); Eosinophils Percent Auto 1.5 % (0-4); Hematocrit 37.3 % (42.0-52.0); Hemoglobin 12.4 g/dl (14.0-18.0); Imm Gran Abs Auto 0.01 X10*3/uL (0.00-0.03); Imm Gran Pct Auto 0.2 % (0.0-0.4); Lymphocytes Absolute Auto 1.9 X10*3/uL (1.2-4.9); Lymphocytes Percent Auto 39.2 % (20-40); Mean Corpuscular HGB Conc 33.2 g/dl (31.0-36.0); Mean Corpuscular Hemoglobin 29.8 pg (27.0-33.0); Mean Corpuscular Volume 89.7 fL (80.0-98.0); Mean Platelet Volume 10.7 fL (9.4-12.4); Monocytes Absolute Auto 0.4 X10*3/uL (0.1-1.2); Monocytes Percent Auto 8.3 % (2-11); Neutrophils Absolute Auto 2.4 x10*3/uL (2.0-8.3); Neutrophils Percent Auto 49.3 % (45-73); Platelet Count 310 X10*3/uL (160-400); Red Blood Count 4.16 X10*6/uL (4.60-5.80); Red Cell Distribution Width 12.6 % (11.0-16.0); White Blood Count 4.8 X10*3/uL (4.8-10.8)
[2024-07-28 10:53] LABS: Appearance Urine Turbid; Color Urine Yellow; Glucose Urine UA Negative (Negative); Leukocyte Esterase Urine Negative (Negative); Nitrite Urine Negative (Negative); PH 6.5 (5.0-9.0); Specific Gravity - Urine >= 1.030 (1.005-1.025); Urine Blood Negative (Negative); Urine Ketones Trace mg/dL (Negative); Urine Protein Negative (Neg-Trace)
[2024-07-28 11:03] LABS: Alanine Aminotransferase 34 U/L (0-40); Albumin Level 4.3 g/dL (3.5-5.0); Alkaline Phosphatase 84 U/L (39-117); Anion Gap 10 (12-20); Aspartate Amino Transferase 32 U/L (5-37); Bilirubin Total 0.6 mg/dL (0.0-1.0); Blood Urea Nitrogen 19 mg/dL (9-16); Calcium 9.2 mg/dL (8.4-10.2); Carbon Dioxide 28 mmol/L (22-29); Chloride 109 mmol/L (96-108); Cholesterol 132 mg/dL (<200); Estimated Glomerular Filt Rate > 60; Glucose Fasting 97 mg/dL (60-99); HDL Cholesterol 41 mg/dL (>40); LDL Cholesterol Calculated 83 mg/dL (<100); Magnesium 2.1 mg/dL (1.6-2.6); Potassium 4.3 mmol/L (3.3-5.1); Sodium 143 mmol/L (135-145); Total Protein 6.4 g/dL (6.5-8.0); Triglycerides 44 mg/dL (<150)
[2024-07-28 11:07] LABS: TSH reflex Free T4 1.57 uIU/mL (0.32-4.0); Vitamin D 25-OH Total 59.8 ng/mL (>30)
== END 2024-07-28 06:08 | disposition home or self-care (01) ==
LOC: HO.HMGCLDS 06:07
PROVIDERS: PCP Internal Medicine; Visit Provider Internal Medicine
DX: E78.00 Pure hypercholesterolemia, unspecified (principal); E55.9 Vitamin D deficiency, unspecified; D64.9 Anemia, unspecified; R30.0 Dysuria; R79.0 Abnormal level of blood mineral
CPT/HCPCS: 36415; 80053; 80061; 81003; 82306; 83735; 84443; 85025

== ENCOUNTER 2024-08-25 16:41 | Outpatient (AMB) | payer BC, SELFPAY ==
--- OUTSIDE RECORDS SUMMARY | 2024-08-25 16:44 | XMS_ITS | Patient Health Record ---
[facility] Address [address] [place] [address] Care Team Providers Care Frame Stylist Name Role Phone Luis Enrique VIVAR, [place] Primary Care Provider Kaushal Velasquez Unavailable [phone] Natalya Marino Unavailable [phone] Allergies Allergen (clinical drug ingredient) Drug/Non Drug Allergy documented on EMR Reaction Allergy Type Onset Date Status Penicillin rash Drug Allergy Active Reason For Referral No [...] MG 1 capsule Orally Three times a day; Duration: 30 day(s) Unknown Vitamin D3 5000 UNIT/ML 0.25 ml Orally O nce a day; Duration: 30 day(s) Unknown NexIUM 40 MG as directed Orally Unknown Crestor 10 MG 1 tablet Orally Once a day; Duration: 30 day(s) Unknown Social History Tobacco Use: [...] W/U Status Risk Notes Problem Hallux valgus (284127430) Hallux Valgus (735.0) Active confirmed Problem Hammer toe (901073209) Hammer toe (735.4) Active confirmed Problem Pain in limb (03801845) Pain in Limb (729.5) Active confirmed Encounters Encounter Location Date Provider Diagnosis [facility] [address] [place] [address] 06/07/2024 Natalya Marino [facility] [address] [place] [address] 06/20/2024 Kaushal Santana Plan Of Treatment Pending Test Test Name Order Date X ray : Foot, left 2V 06/22/2011 X ray : Foot, right 2V 06/22/2011 X ray : Foot, left 3V 06/30/2023 X ray : Foot, right 3V 06/30/2023 Insurance Providers Payer Name Payer Address Payer Phone Subscriber Number Group Number Insured Name Patient Relationship to Insured Coverage Start Date Coverage End Date [facility] [address] [place] [address] [id number] Darin Davidson Self - patient is the insured Medical (General) History Medical History History ICD Code hypertension depression gastroesophageal reflux disease (GERD) Barretts esophagus vitamin D deficiency elevated LFTs Anxiety Broken bones covid-19 Depression High blood pressure Psoriasis/eczema Reflux ( GERD) Surgical History Surgery Date(Month/Year) wrist surgery 08/1999
--- OUTSIDE RECORDS SUMMARY | 2024-08-25 16:44 | XMS_ITS | Clinical Summary ---
Author Organization [address] [place] [address] Building Address [address] [place] [address] Phone Care Team Providers Care Director Of Dementia Operations Name Role Phone Robbie Dudley MD Primary Care Provider + [phone] Allergies No known active allergies Medications magnesium glycinate 100 mg tablet Take by mouth. Active n-ikromv-eaqfpn ne (NAC) 600 mg capsule Take 1 capsule (600 mg total) by mouth 1 (one) time each day. Active Active Problems No known active problems Encounters Date Type Department Care Team Description 08/08/2024 10:10 AM EDT Office Visit Urgent Care - [address] [address] Tracey Pandey PA Left groin mass (Primary Dx) from Last 3 Months Social History Tobacco Use Types Packs/Day Years Used Date Smoking Tobacco: Never Smokeless Tobacco: Never Tobacco Cessation:Counseling Given: Not Answered Alcohol Use Standard Drinks/Week Comments Never 0 (1 standard drink = 0.6 oz pur e alcohol) Sex and Gender Information Value Date Recorded Sex Assigned at Not on file Legal Sex Male 10:07 AM EDT Gender Identity Not on file Sexual Orientation Not on file Obstetrics History Last Filed Vital Signs Vital Sign Reading Time Taken Comments Blood Pressure 128/81 08/08/2024 10:29 AM EDT Pulse 52 08/08/2024 10:29 AM EDT Temperature 36.8 C (98.3 F) 08/08/2024 10:29 AM EDT Respiratory Rate 20 08/08/2024 10:29 AM EDT Oxygen Saturation 96% 08/08/2024 10:29 AM EDT Inhaled Oxygen Concentration - - Weight 63.5 kg (140 lb) 08/08/2024 10:29 AM EDT Height 162.6 cm (5' 4 ) 08/08/2024 10:29 AM EDT Body Mass Index 24.03 08/08/2024 10:29 AM EDT Plan of Treatment Upcoming Encounters Date Type Department Care Team (Late st Contact Info) Description 09/13/2024 8:30 AM EDT Consult General Surgery - [place] [address] [facility] [address] [place] [id number] Surinder Devine, [address] [facility] [address] [place] [address] Health Maintenance Due Date Last Done Comments DTaP,Tdap,and Td Vaccines (1 - Tdap) 1983 Pneumococcal Vaccine: 50+ Ye ars (1 of 1 - PCV) 2014 Zoster Vaccines (1 of 2) 2014 COVID-19 Vaccine (2 - 2023-2 5 season) 2023 06/01/2020 Cholesterol Screening (Lipid Panel) 08/09/2024 Colorectal Cancer Screening: Colonoscopy 08/09/2024 Depression Screening 08/09/2024 HIV Screening 08/09/2024 Hepatitis C Screening 08/09/2024 Hypertension/CHF/CAD Annual BMP Blood Test 08/09/2024 Social Influencers of Health Screening 08/09/2024 Influenza Vaccine (#1) 2024 02/23/2022 RSV Immunization Adult Patie nts (1 - 1-dose 75+ series) 2039 HIB Vaccines Aged Out No longer eligi ble based on patient's age to complete this topic HPV Vaccines Aged Out No longer eligi ble based on patient's age to complete this topic Hepatitis A Vaccines Aged Out No long er eligible based on patient's age to complete this topic Hepatitis B Vaccines Aged Out No long er eligible based on patient's age to complete this topic IPV Vaccines Aged Out No longer eligi ble based on patient's age to complete this topic MMR Vaccines Aged Out No longer eligi ble based on patient's age to complete this topic Meningococcal ACWY Vaccine Aged Out N o longer eligible based on patient's age to complete this topic Meningococcal B Vaccine Aged Out No l onger eligible based on patient's age to complete this topic RSV Immunization Patients Un josephine 20 months Aged Out No longer eligible b ased on patient's age to complete this topic Varicella Vaccines Aged Out No longer eligible based on patient's age to complete this topic Insurance [facility] Care Teams Director Of Dementia Operations Relationship Specialty Start Date End Date Robbie Dudley MD [address] [place] [address] [place] [address] PCP - General Internal Medicine 08/08/24
[2024-08-25 16:46] VITALS: BP 114/62; PULSE 70; O2SAT 98; BMI 23.1
--- NOTE | 2024-08-25 16:46 | MHC.PC.OV ---
Vital Signs 08/25/24 16:46 Height 5 ft 5 in Weight 139 lb BMI 23.1 BP 114/62 Blood Pressure Location Lt brachial Position Sitting Pulse 70 Pulse Source Pulse Oximeter Pulse Oximetry (%) 98 Oxygen Delivery Method Room Air Intake Visit Reasons: follow up Allergies Penicillins (PCN) Allergy (Mild, Verified 08/25/24 17:03) RASH penicillin V Allergy (Unknown, Verified 08/25/24 17:03) rash Medication List - Last Reconciled 08/25/24 by Robbie Dudley MD cholecalciferol (vitamin D3) (Vitamin D3) 50 mcg PO DAILY lisinopril 2.5 mg PO DAILY magnesium glycinate (Mag Glycinate) 200 mg PO DAILY omega 6-uzf-goe-fish oil 1,000 (120-180) mg (Fish Oil) 1 cap PO DAILY omeprazole 40 mg PO DAILY 90 days rosuvastatin 10 mg PO DAILY Tobacco use date assessed: 04/10/24 Dental Screening Dental Screen Date: 04/10/24 HPI follow up HPI Details Patient comes in today for his follow-up visit States that he currently has some blister-like rash/lesion around his left nipple area, which he states first appeared a couple of days ago He recalls experiencing some pain and discomfort near the area and over his left chest wall for the past few days but denies any exertional chest pains or shortness of breath States that he feels okay otherwise He denies any headaches or dizziness No nausea/vomiting, no abdominal pain No change in bowel habits noted He had his follow-up labs done last month - to discuss his results [facility] Medical History (Updated 08/27/24 @ 11:15 by Robbie Dudley MD) Gastritis Pericarditis History of pericarditis (~02/2022) History of Covington's esophagus Overweight (BMI 25.0-29.9) Depression Anxiety Vitamin D deficiency GERD without esophagitis Covington's esophagus without dysplasia Pure hypercholesterolemia Benign essential hypertension Impaired fasting glucose Broken wrist Surgical History History of esophagogastroduodenoscopy (EGD) Hx of colonoscopy S/P cardiac cath Family History Mother No problems noted. Father No problems noted. Social History Housing: House Alcohol intake: current Alcohol intake frequency: holidays/special occasions only Patient Tobacco Use Status: Never used Tobacco Tobacco use type: Cigarette e-Cigarette/Vaping Use: Never Used Second Hand Smoke Exposure: Yes service: No Current occupational status: employed Current occupational exposures/hazards: No Cognitive needs: No Hearing needs: No Vision needs: Yes Questionnaire PHQ-9 Over the last 2 weeks, how often have you been bothered by any of the following problems? 1. Little interest or pleasure in doing things: not at all 2. Feeling down, depressed, or hopeless: not at all 3. Trouble falling or staying asleep, or sleeping too much: not at all 4. Feeling tired or having little energy: several days 5. Poor appetite or overeating: not at all 6. Feeling bad about yourself - or that you are a failure or have let yourself or your family down: not at all 7. Trouble concentrating on things, such as reading the newspaper or watching television: not at all 8. Moving or speaking so slowly that other people could have noticed. Or the opposite - being so fidgety or restless that you have been moving around a lot more than usual: not at all 9. Thoughts that you would be better off or of hurting yourself in some way: not at all Total score: 1 Depression Screening Interpretation: Negative Depression Screening Done: Yes 59192 - PHQ-9 Billing: Yes Source: Developed by Drs. Bj Goldberg, Cheri Adorno, Imer Rivers and colleagues, with an educational emerald from [employer]. Thrive Questionnaire Date Thrive assessed: 04/10/24 I am a: Patient What is your living situation today?: I have a steady place to live Within the past 12 months, did the food you bought not last and you didn't have the money to get more?: Never true Within the past 12 months, did you worry whether your food would run out before you got money to buy more?: Never true Do you have trouble paying for medicines?: No Do you have trouble getting transportation to medical appointments?: No Do you have trouble paying your heating and electricity bill?: No Do you have trouble taking care of your child, family member or friend?: No Do you have trouble with day-to-day activities such as bathing, preparing meals, shopping, managing finances, etc.?: No Are you currently unemployed and looking for a job?: No Are you interested in more education?: No Please select the resources that you would like help with: None Currently or been in a relationship where the following occur: I choose not to answer THRIVE Score: 0 AUDIT C Alcohol Use Questionnaire (AUDIT-C) 1. How often do you have a drink containing alcohol?: Monthly or less Total Score: 1 Score Reviewed/Action Taken: Yes PADMINI-7 AMB Questionnaire PADMINI-7 Date PADMINI - 7 assessed: 04/10/24 Feeling nervous, anxious, or on edge: 0 = Not at all Not being able to stop or control worryin = Not at all Worrying too much about different things: 0 = Not at all Trouble relaxin = Not at all Being so restless that it is hard to sit still: 0 = Not at all Becoming easily annoyed or irritable: 0 = Not at all Feeling afraid as if something awful might happen: 0 = Not at all Total PADMINI-7 score (0-4 normal; 5-9 mild; 10-14 moderate; 15-21 severe): 0 Source: Developed by Drs. Bj Goldberg, Cheri Adorno, Imer Rivers and colleagues, with an educational emerald from [employer]. Review of Systems Const Denies chills, Denies fatigue, Denies fever(s) and Denies headache(s) ENT Denies dysphagia, Denies dizziness, Denies otalgia, Denies headache(s), Denies neck pain, Denies odynophagia and Denies sore throat Card Details: (+) mild pain and discomfort over the left anterior chest wall area, including around the left breast area, for the past few days Denies chest pain with activity, Denies palpitations and Denies dyspnea Resp Denies chest congestion, Denies cough and Denies dyspnea GI Denies abdominal pain, Reports constipation (at times), Denies dysphagia, Denies heartburn, Denies diarrhea, Denies nausea, Denies odynophagia and Denies vomiting Denies difficulty urinating, Denies dysuria, Denies nocturia and Denies urinary frequency Musc Denies back pain and Denies neck pain Skin/Breast Details: (+) blister-like lesions around the left nipple area Neuro Denies dizziness and Denies headache(s) Endo Denies fatigue and Denies palpitations Physical exam (Primary Care) Vital Signs: Last Vital Signs Pulse 70 08/25/24 16:46 BP 114/62 08/25/24 16:46 Pulse Ox 98 08/25/24 16:46 Oxygen Delivery Method Room Air 08/25/24 16:46 BMI result Body Mass Index 23.1 Tobacco/Smoking Status: Tobacco use Status Tobacco use date assessed 04/10/24 08/25/24 16:51 Patient Tobacco Use Status Never used Tobacco 08/25/24 16:51 Tobacco use type Cigarette 08/25/24 16:51 e-Cigarette/Vaping Use Never Used 08/25/24 16:51 PHQ-9: PHQ-9 Score PHQ-9: Total score 1 08/25/24 17:19 Depression Screening Interpretation: Negative Thrive Assessment: Date of Thrive Assessment Date Thrive assessed 04/10/24 08/25/24 16:51 Currently or been in a relationship where the following occur: I choose not to answer Const General: no acute distress and alert HENMT Ears: TM's normal bilaterally and EAC's normal Throat: Yes posterior oropharynx normal and Yes tonsils normal (no TP congestion) Neck Neck: Yes supple and No lymphadenopathy Thyroid: Thyroid normal Resp Auscultation: clear to auscultation bilaterally, no rales and no wheezes Cardio Rate: regular rate Rhythm: regular rhythm Heart sounds: no murmurs GI Palpation (GI): Soft to palpation and nontender Auscultation: normal bowel sounds General: Yes no CVA tenderness Back/Spine/Pelvis Back: no CVA tenderness Thoracic/Lumbar Spine: No lumbar spinal tenderness Skin Other: (+) few vesicular lesions around the left nipple / breast area Extrem General: Yes no clubbing, cyanosis or edema Results Reviewed Results Reviewed: Laboratory Tests 07/28/24 06:19 WBC 4.8 Hgb 12.4 L Hct 37.3 L Plt Count 310 Sodium 143 Potassium 4.3 Creatinine 0.90 Estimated GFR > 60 Fasting Glucose 97 Calcium 9.2 Magnesium 2.1 AST 32 ALT 34 Triglycerides 44 Cholesterol 132 LDL Cholesterol, Calc 83 HDL Cholesterol 41 25-OH Vitamin D Total 59.8 TSH 1.57 Ur Specific [place] >= 1.030 H Urine Protein Negative Urine Glucose (UA) Negative Urine Blood Negative Urine Nitrite Negative Ur Leukocyte Esterase Negative Coding Level of Care Code Est Pt Level 4 (51358) Diagnoses Pure hypercholesterolemia E78.00 Benign essential hypertension I10 Covington's esophagus without dysplasia K22.70 Impaired fasting glucose R73.01 History of pericarditis Z86.79 Herpes zoster without complication B02.9 Herpes zoster complications: without complications Vitamin D deficiency E55.9 Constipation, unspecified constipation type K59.00 Constipation type: unspecified constipation type Anxiety F41.9 Episode of recurrent major depressive disorder, unspecified depression episode severity F33.9 Depression Type: major depressive disorder Major depression recurrence: recurrent Active/Remission status: currently active Major depression episode severity: unspecified Additional Codes PHQ-9 - 68535 - PHQ-9 Billing: Yes ([id number]) Assessment & Plan Assessment & Plan (1) Pure hypercholesterolemia: Code(s): E78.00 - Pure hypercholesterolemia, unspecified Category: Medical Plan: Results of his labs done last month reviewed and discussed with patient Reinforced low cholesterol diet Continue Rosuvastatin 10 mg QD and Fish Oil capsules 1200 mg 1 capsule daily Will recheck his labs and fasting lipids in 6 months for follow-up (2) Benign essential hypertension: Code(s): I10 - Essential (primary) hypertension Category: Medical Plan: Reinforced low-sodium diet - goal is systolic BP of 120 mm or less Continue Lisinopril 2.5 mg QD (3) Covington's esophagus without dysplasia: Comment: diagnosed in 2008 - subsequent EGDs every 3 years have been negative, most recently on 05/11/2022 Code(s): K22.70 - Covington's esophagus without dysplasia Category: Medical Plan: He had a repeat EGD as well as a repeat colonoscopy done with Dr. Spencer a couple of years ago in April 2022 - findings remain consistent with GERD and no abnormal epithelial changes noted He was advised that he may not need any further EGD from here on unless indicated; recommend repeat colonoscopy in 5 years (2027) due to tubular adenomas Reinforced dietary restrictions similar to those in GERD Continue Omeprazole 40 mg QD Follow-up with GI as scheduled (4) Impaired fasting glucose: Code(s): R73.01 - Impaired fasting glucose Category: Medical Plan: His FBS remained normal at 97 mg/dl on his recent labs; his HgbA1c was normal at 5.7% and 5.5% when previously checked Reinforced low-calorie diet / exercise as tolerated (5) History of pericarditis: Onset Date: ~02/2022 Code(s): Z86.79 - Personal history of other diseases of the circulatory system Category: Medical Plan: S/P Tx with Colchicine and Aspirin x 3 months Patient states that he has not had any recurrence of this since his bout with pericarditis in February 2022 A repeat limited echocardiogram done in April 2022 revealed normal EF with no evidence of pericardial effusion; the basal inferior and basal inferolateral segments are hypokinetic Follow up with cardiology as scheduled - he sees cardiology now just once a year for routine follow ups (6) Shingles: Code(s): B02.9 - Zoster without complications Category: Medical Qualifiers: Herpes zoster complications: without complications Qualified Code(s): B02.9 - Zoster without complications Plan: He is advised that his recent left chest wall symptoms and current left periareolar rash/lesions are consistent with herpes zoster or shingles We will start him on Valtrex 1 every 8 hours x 7 days to help lessen the severity and sequelae of his symptoms He is also advised to consider getting a shingles vaccine after a few months as getting an outbreak of shingles does not confer any immunity in the future (7) Vitamin D deficiency: Code(s): E55.9 - Vitamin D deficiency, unspecified Category: Medical Plan: Continue Vitamin D3 2000 units QD (8) Constipation: Code(s): K59.00 - Constipation, unspecified Category: Medical Qualifiers: Constipation type: unspecified constipation type Qualified Code(s): K59.00 - Constipation, unspecified Plan: Patient was experiencing increased constipation and bloating previously but states that his symptoms have improved since Continue OTC Senna 8.6 mg 1 to 2 tablets QD PRN and reinforced increased oral fluids and dietary fiber intake (9) Anxiety: Code(s): F41.9 - Anxiety disorder, unspecified Category: Medical Plan: Patient states that he has been doing well with his anxiety so far and is currently on no Rx (10) Depression: Code(s): F32.A - Depression, unspecified Category: Medical Qualifiers: Depression Type: major depressive disorder Major depression recurrence: recurrent Active/Remission status: currently active Major depression episode severity: unspecified Qualified Code(s): F33.9 - Major depressive disorder, recurrent, unspecified Plan: Patient was weaned off Nortriptyline in the past and he has not been on any Rx for his mood since - states that he feels well and does not need any Rx at this time Follow-up with Psychiatry (Dr. Fuentes) as needed Plan Follow up in 6 months Orders: Orders UA CC w/rflx Micro + Cult 6 Months R30.0 - Dysuria TSH reflex Free T4 6 Months E78.00 - Pure hypercholesterolemia, unspecified UA CC w/rflx Micro + Cult 6 Months R30.0 - Dysuria Lipid Panel 6 Months E78.00 - Pure hypercholesterolemia, unspecified Complete Blood Count Auto Diff 6 Months D64.9 - Anemia, unspecified Comprehensive [place]. Panel Fast 6 Months E78.00 - Pure hypercholesterolemia, unspecified Vitamin D 25-OH Total 6 Months E55.9 - Vitamin D deficiency, unspecified Vitamin B12 and Folate 6 Months E53.8 - Deficiency of other specified B group vitamins Medications: New valacyclovir 1,000 mg PO Q8H 21 tabs 0RF 7 days B02.9 - Zoster without complications
== END 2024-08-25 17:26 | disposition home or self-care (01) ==
LOC: HO.HMCH 16:42
PROVIDERS: PCP Internal Medicine; Visit Provider Internal Medicine
DX: E78.00 Pure hypercholesterolemia, unspecified (principal); I10 Essential (primary) hypertension; K22.70 Barrett's esophagus without dysplasia; R73.01 Impaired fasting glucose; Z86.79 Personal history of other diseases of the circulatory system; B02.9 Zoster without complications; E55.9 Vitamin D deficiency, unspecified; K59.00 Constipation, unspecified; F41.9 Anxiety disorder, unspecified; F33.9 Major depressive disorder, recurrent, unspecified

== ENCOUNTER → 2024-08-25 16:41 | Outpatient (BNVA) | payer BC, SELFPAY | PROVIDERS: PCP Internal Medicine; Visit Provider Internal Medicine | DX: E78.00 Pure hypercholesterolemia, unspecified (principal); I10 Essential (primary) hypertension; K22.70 Barrett's esophagus without dysplasia; R73.01 Impaired fasting glucose; B02.9 Zoster without complications; E55.9 Vitamin D deficiency, unspecified; K59.00 Constipation, unspecified; F41.9 Anxiety disorder, unspecified; F33.9 Major depressive disorder, recurrent, unspecified; Z86.79 Personal history of other diseases of the circulatory system; Z79.899 Other long term (current) drug therapy; Z13.31 Encounter for screening for depression | CPT/HCPCS: 96127 ==

== ENCOUNTER 2024-11-20 11:27 | Outpatient (AMB) | payer BC, SELFPAY ==
[2024-11-20 12:48] VITALS: BP 128/70; PULSE 82; TEMP 36.8; O2SAT 96; BMI 24.4
--- NOTE | 2024-11-20 12:48 | MHC.OFFWIV ---
Intake Vital Signs 11/20/24 12:48 Height 5 ft 5 in Weight 146 lb 6 oz BMI 24.4 BP 128/70 Blood Pressure Location Rt brachial Position Sitting Pulse 82 Pulse Source Pulse Oximeter Temp 98.2 F Temp Source Oral Pulse Oximetry (%) 96 Oxygen Delivery Method Room Air Intake Visit Reasons: EP rash on lower back Intake Note: pt presents with flat red like appearing rash to skin on to left mid back beginning yesterday. pt reports h/o shingles left nipple in August-treated by PCP Patient Tobacco Use Status: Never used Tobacco Allergies Penicillins (PCN) Allergy (Mild, Verified 11/20/24 12:48) RASH Do you need a note to return to daycare/school/sports/work: No HPI HPI Comments History of Present Illness Details 59 y/o Male patient who presents to the walk in clinic with c/o Rash on his Back since Yesterday. Reports that Rash is not itchy, no Burning and not Painful. Denies any recent changes to Detergent Soaps, Cosmetic products, Foods or Medications. Rash is Localized to the Right sided Back (thoracic region). Denies fevers, chills, nausea or vomting. Denies any recent sick contacts. [facility] Medical History (Updated 11/20/24 @ 13:35 by Kaylah Dowd NP) Contact dermatitis Gastritis Pericarditis History of pericarditis (~02/2022) History of Covington's esophagus Overweight (BMI 25.0-29.9) Depression Anxiety Vitamin D deficiency GERD without esophagitis Covington's esophagus without dysplasia Pure hypercholesterolemia Benign essential hypertension Impaired fasting glucose Broken wrist Surgical History History of esophagogastroduodenoscopy (EGD) Hx of colonoscopy S/P cardiac cath Family History Mother No problems noted. Father No problems noted. Social History Housing: House Alcohol intake: current Alcohol intake frequency: holidays/special occasions only Patient Tobacco Use Status: Never used Tobacco Tobacco use type: Cigarette e-Cigarette/Vaping Use: Never Used Second Hand Smoke Exposure: Yes service: No Current occupational status: employed Current occupational exposures/hazards: No Cognitive needs: No Hearing needs: No Vision needs: Yes Review of Systems Const All systems reviewed & are unremarkable except as noted in HPI and below Physical Exam Vital Signs: Last Vital Signs Temp 98.2 F 11/20/24 12:48 Pulse 82 11/20/24 12:48 BP 128/70 11/20/24 12:48 Pulse Ox 96 11/20/24 12:48 Oxygen Delivery Method Room Air 11/20/24 12:48 BMI result Body Mass Index 24.4 Const General: no acute distress Nutritional Appearance: well nourished Orientation/consciousness: patient oriented x3 Skin Other: Rashes: rashes noted (See Photo Above) Neuro General: patient oriented x3, gait normal and moves all extremities Psych Speech and movement: Normal speech and movement present Assessment & Plan Assessment & Plan (1) Contact dermatitis: Code(s): L25.9 - Unspecified contact dermatitis, unspecified cause Plan: Will treat this with Topical Steroid cream for 7 days. No clear Etiology at this time. F/U with PCP. Medications: New triamcinolone acetonide 0.1% 1 appl topical BID 30 grams 0RF 7 days L25.9 - Unspecified contact dermatitis, unspecified cause Coding Level of Care Code Est Pt Level 4 (87061) Diagnoses Contact dermatitis L25.9 Time Spent (min) 20
--- OUTSIDE RECORDS SUMMARY | 2024-11-20 14:06 | XMS_ITS | Clinical Summary ---
Author Organization [address] [place] [address] Building Address [address] [place] [id number] Phone Care Team Providers Care Trestle Mechanic Name Role Phone Robbie Dudley MD Primary Care Provider + [phone] Allergies No known active allergies Medications magnesium glycinate 100 mg tablet Take by mouth. Active n-fqynxl-hsmhty ne (NAC) 600 mg capsule Take 1 capsule (600 mg total) by mouth 1 (one) time each day. Active Active Problems No known active problems Social History Tobacco Use Types Packs/Day Years [...] 08/08/2024 10:29 AM EDT Plan of Treatment Health Maintenance Due Date Last Done Comments Colorectal Cancer Screening: Colonoscopy 1964 DTaP,Tdap,and Td Vaccines (1 - Tdap) 1983 Pneumococcal Vaccine: 50+ Ye ars (1 of 1 - PCV) 2014 Zoster Vaccines (1 of 2) 2014 Depression Screening 02/16/2024 Cholesterol Screening (Lipid Panel) 08/09/2024 HIV Screening 08/09/2024 Hepatitis C Screening 08/09/2024 Hypertension/CHF/CAD Annual BMP Blood Test 08/09/2024 Social Influencers of Health Screening 08/09/2024 COVID-19 Vaccine (2 - 2024-2 6 season) 2024 06/01/2020 Influenza Vaccine (#1) 2024 02/23/2022 RSV Immunization [...] patient's age to complete this topic Insurance [facility] Care Teams Trestle Mechanic Relationship Specialty Start Date End Date Robbie Dudley MD [address] [place] [address] PCP - General Internal Medicine 08/08/24
--- OUTSIDE RECORDS SUMMARY | 2024-11-20 14:06 | XMS_ITS | Patient Health Record ---
Author Organization [facility] Address [address] [place] [id number] Care Team Providers Care Horser Up Name Role Phone Luis Enrique VIVAR, [place] Primary Care Provider Bj Dejesus Unavailable [phone] Allergies Allergen (clinical drug ingredient) Drug/Non Drug [...] Problem Status W/U Status Risk Notes Problem 332513990 Encounter for screening for malignant neoplasm of colon (Z12.11) Active confirmed Problem 829490187 History of adenomatous polyp of colon (Z86.010) Active confirmed Problem 236297680 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) Active confirmed Problem Diverticular disease of colon (391328421) Diverticulosis of large intestine without perforation or abscess without bleeding (K57.30) Active confirmed Problem Screening for malignant neoplasm of rectum (527250495) Encounter for screening for malignant neoplasm of rectum (Z12.12) Active confirmed Problem Gastroesophageal reflux disease (862521686) Gastroesophageal reflux disease (K21.9) Active confirmed Problem 150623907 Gastroesophageal reflux disease without esophagitis (K21.9) Active confirmed Problem Covington esophagus (283817984) Covington esophagus (K22.70) Active confirmed Plan Of Treatment Future Test Test Name Order Date UPPER GI ENDOSCOPY 02/14/2013 UPPER GI ENDOSCOPY 12/18/2015 COLONOSCOPY 12/18/2015 UPPER GI ENDOSCOPY 03/12/2022 COLONOSCOPY 03/12/2022 Insurance Providers Payer Name Payer Address Payer Phone Subscriber Number Group Number Insured Name Patient Relationship to Insured Coverage Start Date Coverage End Date [facility] [place] [employer] [place] [address] [place] [address] [id number] [place] Self - patient is the insured Medical (General) History Medical History History ICD Code EGD 01-23-2009--small to mode rate sized HH, small area of Covington's--no dysplasia--no esophagitis; F/U EGD in 04/2013 was neg. for any Covington's mucosa GERD Depression/anxiety Denies GA,DM,CVA,Lung disease,renal dise ase Hyperlipidemia Pericarditis 02/2022--negati ve cardiac cath at [facility]--treated with Colchicine--seeing Dr. Burns Eczema Colonoscopy in 11/2016 with a small tubu lar adenoma removed EGD 11/2016-small HH, no Covington's on e biopsies, no esophagitis Factor V deficiency Surgical History Surgery Date(Month/Year) Surgery for a broken wrist
--- OUTSIDE RECORDS SUMMARY | 2024-11-20 14:06 | XMS_ITS | Patient Health Record ---
Author Organization [facility] Address [address] [place] [address] Care Team Providers Care Prepress Operator Name Role Phone Luis Enrique VIVAR, [place] Primary Care Provider Kaushal Phelps Unavailable [phone] Natalya Marino Unavailable [phone] Allergies Allergen (clinical drug ingredient) Drug/Non Drug [...] W/U Status Risk Notes Problem Hallux valgus (370176717) Hallux Valgus (735.0) Active confirmed Problem Hammer toe (203679079) Hammer toe (735.4) Active confirmed Problem Pain in limb (91260509) Pain in Limb (729.5) Active confirmed Encounters Encounter Location Date Provider Diagnosis [facility] [address] [place] [address] 06/07/2024 Natalya Marino [facility] [address] [place] [address] 06/20/2024 Kaushal Box Plan Of Treatment Pending Test Test Name Order Date X ray : Foot, left 2V 06/22/2011 X ray : Foot, right 2V 06/22/2011 X ray : Foot, left 3V 06/30/2023 X ray : Foot, right 3V 06/30/2023 Insurance Providers Payer Name Payer Address Payer Phone Subscriber Number Group Number Insured Name Patient Relationship to Insured Coverage Start Date Coverage End Date [facility] [address] [place] [address] [id number] Darin Davidson Self - patient is the insured Medical (General) History Medical History History ICD Code hypertension depression gastroesophageal reflux disease (GERD) Barretts esophagus vitamin D deficiency elevated LFTs Anxiety Broken bones covid-19 Depression High blood pressure Psoriasis/eczema Reflux ( GERD) Surgical History Surgery Date(Month/Year) wrist surgery 08/1999
--- OUTSIDE RECORDS SUMMARY | 2024-11-20 14:06 | XMS_ITS ---
Author Name [facility] Organization Unknown History of Medication Use Medication Directions Dispensed Refills Start Date End Date Stat us magnesium glycinate 100 mg tablet Take by mouth. active v-unloxy-qiinurld (NAC) 600 mg capsule Take 1 capsule (600 mg total) by mouth 1 (one) time each day. active Problems Problem Status Onset Date Problem Type Date of Resoluti on Source Left groin mass active EncounterDiagnosisAct CT_THSFRAN Encounters Encounter Type Encounter Reason Primary Diagnosis Location Date Ambulatory Boil Other intra-abdo barron and pelvic swelling, mass and lump [facility] 08/08/2024 Care Team Organization Name Specialty Phone Email Start Date End Da te [facility] PHYSICIAN Primary Care 08/08/2024 [facility] PCP PHYSICIAN Primary Care 08/08/2024
== END 2024-11-20 13:36 | disposition home or self-care (01) ==
PROVIDERS: PCP Internal Medicine; Visit Provider Nurse Practitioner Family
DX: L25.9 Unspecified contact dermatitis, unspecified cause (principal)